=== PATIENT | male | born 1945 | race Caucasian/White ===

== ENCOUNTER 2017-07-18 13:00 | Outpatient (RCR) | payer MEDICARE, SELFPAY ==
[2017-07-18 14:44] LABS: International Normalized Ratio 1.8; Prothrombin Time (Protime)PT. 19.8 SECONDS (11.7-14.9)
== END 2017-07-18 13:30 | disposition home or self-care (01) ==
LOC: LAB 13:00
PROVIDERS: Family Provider Family Medicine Geriatric Medicine; PCP Family Medicine Geriatric Medicine; Visit Provider Internal Medicine Cardiovascular Disease
DX: I48.0 Paroxysmal atrial fibrillation (principal)
CPT/HCPCS: 36415; 85610

== ENCOUNTER 2017-07-28 10:22 | Day surgery (SDC) | payer MEDICARE, SELFPAY ==
[2017-07-28 10:51] VITALS: BP 110/75; PULSE 84; RESP 16; TEMP 36.3; O2SAT 97; BMI 32.0
--- NOTE | 2017-07-28 12:39 | PCM.OP.BLANK ---
Operative Report Date of Procedure: 07/28/17 Preoperative diagnosis: Left Carpal tunnel syndrome Postoperative diagnosis: Same Title of operation: Open Left carpal tunnel release Surgeon: Dr. Moises Walton Anesthesia: Local Indications for surgery: Patient seen and evaluated in the office. Diagnosed with carpal tunnel syndrome. They have failed adequate nonoperative treatment. Due to persistent symptoms they wish to proceed with carpal tunnel release surgery appropriate informed consent was obtained and signed. Details of procedure: Patient was taken to the OR and transferred to the OR table. Appropriate timeouts were performed. Well-padded tourniquet was applied to the operative upper extremity proximally. Area was prepped with alcohol. Local anesthetic was administered using 9 cc of 2% lidocaine plain. Operative extremity was prepped padded and draped in usual orthopedic sterile fashion for the procedure. Limb was exsanguinated. Tourniquet applied to 250 mmHg. Three centimeter incision was made over the palm. Carefully taken through skin, subcutaneous tissue, down onto the transverse carpal ligament. Transverse carpal ligament was opened at the midportion with a knife. Elevator was carefully placed underneath the transverse carpal ligament in a distal direction. I dissected down onto that with a knife. Elevator was then placed in a proximal direction, again directly underneath the transverse carpal ligament. I dissected down on that with a knife. Scissors were used at the proximal extent placed under direct visualization. This fully released the proximal extent of the transverse carpal ligament. At this point my small finger was placed proximally and distally to assure complete release of the transverse carpal ligament over the median nerve. FPL tendon was noted. No significant abnormalities were noted at the region of the carpal canal. Tourniquet was let down at 6 minutes. Bleeding controlled with the Bovie. Wound thoroughly irrigated. No undue bleeding noted. Skin edges were reapproximated with a 5-0 nylon. Sterile bandage was applied. Patient was awoken from the anesthetic. Transferred to the room bed. To recovery room in satisfactory condition. Patient will be discharged home. Ice and elevation recommended. Pain medication as needed. Follow-up in the office next week as scheduled. This note was generated with [employer] dictation software. It may contain incorrect words, spelling, and punctuation that were not noted in checking the note before signing.
[2017-07-28 12:50] VITALS: BP 131/64; PULSE 62; RESP 16; TEMP 36.9; O2SAT 97
== END 2017-07-28 13:00 | disposition home or self-care (01) ==
LOC: SDC 10:23 → ACINP 10:26 → AC 13:36
PROVIDERS: Family Provider Family Medicine Geriatric Medicine; PCP Family Medicine Geriatric Medicine; Visit Provider Orthopaedic Surgery
PROC: (CPT 64721; principal; 2017-07-28 11:45)
DX: G56.02 Carpal tunnel syndrome, left upper limb (principal); I10 Essential (primary) hypertension; I48.91 Unspecified atrial fibrillation; Z79.01 Long term (current) use of anticoagulants; E66.9 Obesity, unspecified; Z68.34 Body mass index [BMI] 34.0-34.9, adult; Z79.899 Other long term (current) drug therapy; Z87.891 Personal history of nicotine dependence; Z79.82 Long term (current) use of aspirin; I71.9 Aortic aneurysm of unspecified site, without rupture; Z85.46 Personal history of malignant neoplasm of prostate
CPT/HCPCS: 01810; 64721

== ENCOUNTER → 2017-09-15 09:48 | Outpatient (CLI) | payer MEDICARE, SELFPAY ==
--- NOTE | 2017-09-15 09:52 | RAD_ITS ---
STUDY: X-RAY - LEFT SHOULDER REASON FOR EXAM: Male, 71 years old. Pain TECHNIQUE: 4 view(s) of the shoulder. COMPARISON: None. FINDINGS: Normal glenohumeral articulation. Mild degenerative hypertrophy at the acromioclavicular joint. Inferior hooking of the acromion can predispose to impingement. Normal humeral head and visualized proximal humerus. Soft tissue calcification lateral to the humerus likely related to calcific tendinopathy. Normal visualized pulmonary apex. RAD/Shoulder min 2 Views IMPRESSION: Degenerative changes of the shoulder. Calcific tendinopathy. Electronically Signed: Forrest Mccall DO at 8:44 EDT Tel [phone], Service support ,
--- NOTE | 2017-09-15 09:52 | RAD_ITS ---
STUDY: X-RAY - RIGHT SHOULDER REASON FOR EXAM: Male, 71 years old. Pain TECHNIQUE: 4 view(s) of the shoulder. COMPARISON: None. FINDINGS: Normal glenohumeral articulation. Degenerative hypertrophy at the acromioclavicular joint. Inferior hooking of the acromion can predispose to impingement. Normal humeral head and visualized proximal humerus. The soft tissue structures are unremarkable. Normal visualized pulmonary apex. RAD/Shoulder min 2 Views IMPRESSION: Degenerative changes of the shoulder. Electronically Signed: Forrest Mccall DO at 9:00 EDT Tel [phone], Service support ,
--- NOTE | 2017-09-15 09:53 | RAD_ITS ---
STUDY: X-RAY - PELVIS AND BILATERAL HIPS REASON FOR EXAM: Male, 71 years old. Pain TECHNIQUE: Radiological exam, hip, bilateral, with pelvis when performed; 2 views COMPARISON: None. FINDINGS: There is a non-specific bowel gas pattern. Normal visualized soft tissue structures. Normal bilateral iliac wings, sacroiliac joints and visualized sacrum. Normal bilateral superior and inferior pubic rami. Normal pubic symphysis. Normal bilateral ischial tuberosities. Normal visualized right femoral head. Normal right acetabulum. Normal right hip joint. Normal visualized left femoral head. Normal left acetabulum. Normal left hip joint. RAD/Hips B/L min 2 views w/ Pelvis IMPRESSION: Normal x-ray examination of the pelvis and bilateral hips. Electronically Signed: Eliot Angulo DO at 9:43 EDT , Service support ,
[2017-09-15 13:33] LABS: Absolute Lymphocyte Count 1.02 X10^3/ul (0.83-4.51); Absolute Neutrophil Count 7.4 X10^3/uL (2.0-7.7); Basophil# 0.02 X10^3/uL; Basophil% 0.2 % (0-1); Eosinophil# 0.28 X10^3/uL; Hematocrit 42.8 % (40-54); Hemoglobin 13.6 g/dl (13.0-16.5); Lymphocyte # 1.02 X10^3/ul (4.0); Lymphocyte % 10.9 % (19-41); Mean Corp Hgb Conc 31.8 g/gl (32-36); Mean Corpuscular Volume 88.1 fL (80-94); Mean Platelet Vol. 10.8 fl (6.2-12.0); Monocyte% 6.4 % (0-10); Neutrophil # 7.38 X10^3/uL (2.7-7.7); Neutrophil % 79.2 % (47-70); Platelet Count 267 K/mm3 (150-450); RBC Distribution Width CV 12.7 % (11.6-14.6); RBC Distribution Width SD 40.9 fl (35.1-43.9); Red Blood Count 4.86 M/mm3 (4.6-6.2); White Blood Count 9.3 K/mm3 (4.4-11.0)
[2017-09-15 13:37] LABS: POSITIVE COUNT NO; POSITIVE DIFFERENTIAL NO; POSITIVE MORPHOLOGY NO
[2017-09-15 13:43] LABS: Erythrocyte Sedimentation Rate 18 mm/hr (0-20)
[2017-09-15 13:45] LABS: Anion Gap 4 (5-15); BUN 22 mg/dL (7-18); BUN/Creat Ratio 21.6 RATIO (10-20); Chloride 103 mmol/L (98-107); Creatinine, Serum 1.02 mg/dL (0.70-1.30); EST Glomerular Filtration Rate 76 mL/min (>60); Est Glom Filt Rate - Afr Amer 92 mL/min (>60); Glucose 127 mg/dL (74-106); Potassium 4.5 mmol/L (3.5-5.1); Sodium Level 138 mmol/L (136-145)
== END ==
PROVIDERS: Family Provider Family Medicine Geriatric Medicine; PCP Family Medicine Geriatric Medicine; Visit Provider Family Medicine Geriatric Medicine
DX: M19.012 Primary osteoarthritis, left shoulder (principal); M19.011 Primary osteoarthritis, right shoulder; M25.552 Pain in left hip; M25.551 Pain in right hip; M10.9 Gout, unspecified
CPT/HCPCS: 36415; 73030; 73521; 80048; 85025; 85652; 86140

== ENCOUNTER → 2017-10-19 14:54 | Outpatient (CLI) | payer MEDICARE, SELFPAY ==
[2017-10-19 16:35] LABS: Absolute Lymphocyte Count 0.91 X10^3/ul (0.83-4.51); Absolute Neutrophil Count 10.7 X10^3/uL (2.0-7.7); Basophil# 0.03 X10^3/uL; Basophil% 0.2 % (0-1); Eosinophil# 0.07 X10^3/uL; Eosinophils% 0.6 % (0-5); Hemoglobin 13.6 g/dl (13.0-16.5); Lymphocyte # 0.91 X10^3/ul (4.0); Lymphocyte % 7.3 % (19-41); Mean Corp Hgb Conc 32.4 g/gl (32-36); Mean Corpuscular Hgb 28.3 pg (27.0-32.0); Mean Corpuscular Volume 87.5 fL (80-94); Mean Platelet Vol. 10.7 fl (6.2-12.0); Monocyte# 0.75 X10^3/uL; Neutrophil # 10.65 X10^3/uL (2.7-7.7); Neutrophil % 85.3 % (47-70); Platelet Count 255 K/mm3 (150-450); RBC Distribution Width CV 13.9 % (11.6-14.6); RBC Distribution Width SD 44.2 fl (35.1-43.9); White Blood Count 12.5 K/mm3 (4.4-11.0)
[2017-10-19 16:58] LABS: POSITIVE COUNT NO; POSITIVE DIFFERENTIAL NO; POSITIVE MORPHOLOGY NO
[2017-10-19 17:13] LABS: ALB/GLOB Ratio 1.1 RATIO (0.9-2.4); AST(SGOT) 13 U/L (15-37); Alanine Aminotransfer ALT/SGPT 29 U/L (16-61); Albumin, Serum 3.6 g/dL (3.2-5.0); Alkaline Phosphatase 83 U/L (45-117); Anion Gap 7 (5-15); BUN 25 mg/dL (7-18); BUN/Creat Ratio 26.6 RATIO (10-20); Calcium,Total 8.8 mg/dL (8.5-10.1); Chloride 104 mmol/L (98-107); Creatinine, Serum 0.94 mg/dL (0.70-1.30); EST Glomerular Filtration Rate 84 mL/min (>60); Est Glom Filt Rate - Afr Amer 101 mL/min (>60); Globulin 3.2 g/dL (2.2-4.2); Glucose 99 mg/dL (74-106); Potassium 5.1 mmol/L (3.5-5.1); Protein, Total 6.8 g/dL (6.4-8.2); Sodium Level 140 mmol/L (136-145); Thyroid Stim Hormone (TSH) 0.28 uIU/mL (0.358-3.74)
== END ==
PROVIDERS: Family Provider Family Medicine Geriatric Medicine; PCP Family Medicine Geriatric Medicine; Visit Provider Family Medicine Geriatric Medicine
DX: E55.9 Vitamin D deficiency, unspecified (principal); I10 Essential (primary) hypertension
CPT/HCPCS: 36415; 80053; 82306; 84443; 85025

== ENCOUNTER → 2017-11-22 08:51 | Outpatient (CLI) | payer MEDICARE, SELFPAY ==
[2017-11-22 09:37] LABS: International Normalized Ratio 3.1; Prothrombin Time (Protime)PT. 32.1 SECONDS (11.7-14.9)
== END ==
PROVIDERS: Physician Assistant Medical; Family Provider Family Medicine Geriatric Medicine; PCP Family Medicine Geriatric Medicine; Visit Provider Internal Medicine Cardiovascular Disease
DX: I48.0 Paroxysmal atrial fibrillation (principal)
CPT/HCPCS: 36415; 85610

== ENCOUNTER → 2017-11-29 11:50 | Outpatient (CLI) | payer MEDICARE, SELFPAY ==
--- NOTE | 2017-11-29 11:50 | DT_ITS ---
This patient was seen during an EMR downtime November 27, 2017 - December 04, 2017. This patient may have a combination of paper and electronic documentation or all paper documentation. All documentation is viewable within the e-chart portion of [facility] for each patient visit.
[2017-12-04 12:19] LABS: Prothrombin Time (Protime)PT. 31.6 SECONDS (11.7-14.9)
== END ==
PROVIDERS: Family Provider Family Medicine Geriatric Medicine; PCP Family Medicine Geriatric Medicine; Visit Provider Physician Assistant Medical
DX: I48.91 Unspecified atrial fibrillation (principal); Z79.01 Long term (current) use of anticoagulants
CPT/HCPCS: 36415; 85610

== ENCOUNTER → 2017-12-19 11:00 | Day surgery (SDC) | payer MEDICARE, SELFPAY ==
[2017-12-18 13:21] VITALS: BMI 33.5
[2017-12-19 11:39] LABS: INR Fingerstick > 6.00
--- NOTE | 2017-12-19 12:25 | PCM.PN.BLA ---
Progress Note ADDENDUM Addendum entered and electronically signed by TEQUILA Padron 12/19/17 12:25: Patient is here today for a DCCV for his Atrial Fibrillation. He was last seen in the office on 11/13/2017. Patient's INR has been therapeutic for greater than 30 days. He still continues to complain of fatigue with exertional activities that he feels is related to his atrial fibrillation. I have re-examined the patient. There are no clinical changes since the date of exam. HPI Details: KAL ENCARNACION, is a 72 M who presents to the office today for a cardiovascular follow-up. 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 From a cardiac standpoint, patient is doing well. He does not have any chest discomfort/heaviness/tightness. His exercise tolerance is stable for his age. He does not have any worsening symptoms of shortness of breath. He denies any PND. He does not have any orthopnea. He does not have any symptoms of congestive heart failure. He does not have any palpitations that he is aware of. He does not have any lightheadedness or dizziness. He does not have any near-syncope or syncope. He does not have any lower extremity edema. He does not have any symptoms of claudication. He has not been to see the [facility] surgeon in the last year. Intake Vital Signs 11/13/17 Height 6 ft 5 in 11/13/17 Weight: 283 lb 11/13/17 Body Mass Index (BMI) 33.5 11/13/17 Blood Pressure 142/84 11/13/17 Blood Pressure Location Lt brachial 11/13/17 Blood Pressure Position Sitting 11/13/17 Respiratory Rate 16 11/13/17 Pulse Rate 90 11/13/17 Pulse Source Monitor Intake Visit Reasons: 6 M Kardex Clerk Required: No Accompanied by: none Is patient in pain?: No Allergies No Known Allergies Allergy (Verified 11/13/17 14:07) Medications Levothyroxine Sodium [Synthroid] 200 mcg PO DAILY 03/09/16 [History Confirmed 12/18/17] Pravastatin [Pravachol] 40 mg PO QHS 03/09/16 [History Confirmed 12/18/17] Tamsulosin HCl [Flomax] 0.8 mg PO DAILY 03/09/16 [History Confirmed 12/18/17] warfarin 4 mg tablet 4 mg PO .COMPLEX 07/18/17 [History Confirmed 12/18/17] warfarin 6 mg tablet 6 mg PO QDAY #90 tab 08/09/17 [Rx Confirmed 12/19/17] metoprolol tartrate 25 mg tablet 25 mg PO BID #180 tab 09/26/17 [Rx Confirmed 12/18/17] losartan 100 mg-hydrochlorothiazide 25 mg tablet 1 tab PO DAILY #90 tab 10/09/17 [Rx Confirmed 12/18/17] Ejection fraction %: 60 to 64 PFSH Medical History PAF (paroxysmal atrial fibrillation) (Chronic) Aortic valve disease (Resolved) Thoracic aortic aneurysm without rupture (Resolved) Aortic aneurysm (Chronic) Syncope and collapse (Acute) Surgical History H/O: knee surgery (Resolved) History of tonsillectomy (Resolved) Hx of vasectomy (Resolved) Family History Father Hypertension Heart disease Social History Smoking Status: Former smoker alcohol intake: current alcohol intake frequency: 0-2 drinks per day Alcohol type: wine substance use type: does not use caffeine: Yes Type: coffee Number of servings: 1 what type of physical activity do you participate in: none Cardiology Exam Const Appearance: cooperative, no acute distress and well developed Orientation: alert, awake and oriented x3 Head Head: normocephalic and atraumatic Mouth: moist mucous membranes Eyes General: appearance normal, both eyes and all related structures Conjunctivae: conjunctivae normal Pupils: PERRL EOM: EOM intact bilaterally Neck Neck: normal visual inspection, no lymphadenopathy and no JVD Carotids: Negative bruit Neck Mass: Negative Neck mass Chest Chest inspection: normal inspection of the chest and symmetric chest movement Auscultation: Bilateral: Clear to Auscultation Cardio Palpation: normal PMI Rate: regular rate Rhythm: regular rhythm Heart sounds: S1 normal and S2 normal; negative rub, gallop or murmur GI GI: normal to inspection, soft, no hepatosplenomegaly and bowel sounds present; negative tender Neuro General: alert, awake, oriented x3, CN's II-XI intact bilaterally and moves all extremities Extremities Pulses: Normal: Right Posterior Tibial Pulse, Left Posterior Tibial Pulse, Right Radial Pulse, Left Radial Pulse Lower Extremity Edema: None: Bilateral Psych Psychological: normal affect Supplemental Info a cardiovascular follow-up. 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 Echocardiogram done at [facility] in February 2016 post surgery demonstrated ejection fraction of 55%. Patient was noted to be in atrial fibrillation. Aortic valve repair with peak gradient of 8 mmHg, mean gradient of 4 mmHg and a valve index of 0.65. 1. Thoracic aortic aneurysm with aneurysm repair and aortic valve repair: Patient does continue to follow with CT surgery. Assessment & Plan 1. Thoracic aortic aneurysm without rupture I71.2 repair in 2015 at [facility] Plan - TEQUILA Padron Patient does continue to follow with vascular surgeon at [facility]. 2. Aortic valve disease I35.9 AVR 2015 Plan - TEQUILA Padron Patient does continue to follow with surgery at [facility]. We will continue to follow by history, exam and echocardiograms as deemed appropriate. Did discuss obtaining one in the office today however he declines. He would like to do this through the [facility]. 3. PAF (paroxysmal atrial fibrillation) I48.0 Plan - TEQUILA Padron Pt is overdue to have his INR checked. He was reminded of the importance of this. He is in atrial fibrillation today, he is unaware of this. Did discuss obtaining a Holter monitor to assess if this was persistent or paroxysmal. He would prefer not to do this. He would prefer to come in next week for an EKG. Agreeable with this. If he remains in atrial fibrillation at that time we will then decide plan of care. Orders Orders: Prothrombin Time w/INR 11/13/17 4. Essential hypertension I10 Plan - TEQUILA Padron Adequately controlled on current medications, will not make any adjustments. 5. Pure hypercholesterolemia E78.00; E78.0 Plan - TEQUILA Padron Managed by PCP, he will remain on current medications. Plan Detail Other Orders Orders: 12 Lead EKG performed by [facility] 11/13/17 I48.91, Z86.79, Z98.890 Additional Comments - TEQUILA Padron The above patient was discussed with Dr. Cosme, he agrees with plan of care. Thank you for allowing us to participate in patient's plan of care, if you have any questions please do not hesitate to call. This note was generated using a voice recognition system and there may be incorrect words, spelling or punctuation errors that were not noted when reviewing the office note prior to saving. Follow Up 1 Week (1-2 weeks for an EKG) 1 Year ([facility]) Coding Level of Care Code Off vis,est,level 3 Diagnoses Thoracic aortic aneurysm without rupture I71.2 Aortic valve disease I35.9 PAF (paroxysmal atrial fibrillation) I48.0 Essential hypertension I10 Hypertension type: essential hypertension Pure hypercholesterolemia E78.00; E78.0 Hyperlipidemia type: pure hypercholesterolemia
--- NOTE | 2017-12-19 12:28 | PN_ITS ---
Progress Note ADDENDUM Addendum entered and electronically signed by TEQUILA Padron 12:25: Patient is here today for a DCCV for his Atrial Fibrillation. He was last seen in the office on 11/13/2017. Patient's INR has been therapeutic for greater than 30 days. He still continues to complain of fatigue with exertional activities that he feels is related to his atrial fibrillation. I have re-examined the patient. There are no clinical changes since the date of exam. HPI Details: KAL ENCARNACION, is a 72 M who presents to the office today for a cardiovascular follow-up. 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 From a cardiac standpoint, patient is doing well. He does not have any chest discomfort/heaviness/tightness. His exercise tolerance is stable for his age. He does not have any worsening symptoms of shortness of breath. He denies any PND. He does not have any orthopnea. He does not have any symptoms of congestive heart failure. He does not have any palpitations that he is aware of. He does not have any lightheadedness or dizziness. He does not have any near-syncope or syncope. He does not have any lower extremity edema. He does not have any symptoms of claudication. He has not been to see the [facility] surgeon in the last year. Intake Vital Signs 11/13/17 Height 6 ft 5 in 11/13/17 Weight: 283 lb 11/13/17 Body Mass Index (BMI) 33.5 11/13/17 Blood Pressure 142/84 11/13/17 Blood Pressure Location Lt brachial 11/13/17 Blood Pressure Position Sitting 11/13/17 Respiratory Rate 16 11/13/17 Pulse Rate 90 11/13/17 Pulse Source Monitor Intake Visit Reasons: 6 M Feeder/Folder Required: No Accompanied by: none Is patient in pain?: No Allergies No Known Allergies Allergy (Verified 11/13/17 14:07) Medications Levothyroxine Sodium [Synthroid] 200 mcg PO DAILY 03/09/16 [History Confirmed ] Pravastatin [Pravachol] 40 mg PO QHS 03/09/16 [History Confirmed 12/18/17] Tamsulosin HCl [Flomax] 0.8 mg PO DAILY 03/09/16 [History Confirmed 12/18/17] warfarin 4 mg tablet 4 mg PO .COMPLEX 07/18/17 [History Confirmed 12/18/17] warfarin 6 mg tablet 6 mg PO QDAY #90 tab 08/09/17 [Rx Confirmed 12/19/17] metoprolol tartrate 25 mg tablet 25 mg PO BID #180 tab 09/26/17 [Rx Confirmed ] losartan 100 mg-hydrochlorothiazide 25 mg tablet 1 tab PO DAILY #90 tab [Rx Confirmed 12/18/17] Ejection fraction %: 60 to 64 PFSH Medical History PAF (paroxysmal atrial fibrillation) (Chronic) Aortic valve disease (Resolved) Thoracic aortic aneurysm without rupture (Resolved) Aortic aneurysm (Chronic) Syncope and collapse (Acute) Surgical History H/O: knee surgery (Resolved) History of tonsillectomy (Resolved) Hx of vasectomy (Resolved) Family History Father Hypertension Heart disease Social History Smoking Status: Former smoker alcohol intake: current alcohol intake frequency: 0-2 drinks per day Alcohol type: wine substance use type: does not use caffeine: Yes Type: coffee Number of servings: 1 what type of physical activity do you participate in: none Cardiology Exam Const Appearance: cooperative, no acute distress and well developed Orientation: alert, awake and oriented x3 Head Head: normocephalic and atraumatic Mouth: moist mucous membranes Eyes General: appearance normal, both eyes and all related structures Conjunctivae: conjunctivae normal Pupils: PERRL EOM: EOM intact bilaterally Neck Neck: normal visual inspection, no lymphadenopathy and no JVD Carotids: Negative bruit Neck Mass: Negative Neck mass Chest Chest inspection: normal inspection of the chest and symmetric chest movement Auscultation: Bilateral: Clear to Auscultation Cardio Palpation: normal PMI Rate: regular rate Rhythm: regular rhythm Heart sounds: S1 normal and S2 normal; negative rub, gallop or murmur GI GI: normal to inspection, soft, no hepatosplenomegaly and bowel sounds present; negative tender Neuro General: alert, awake, oriented x3, CN's II-XI intact bilaterally and moves all extremities Extremities Pulses: Normal: Right Posterior Tibial Pulse, Left Posterior Tibial Pulse, Right Radial Pulse, Left Radial Pulse Lower Extremity Edema: None: Bilateral Psych Psychological: normal affect Supplemental Info a cardiovascular follow-up. 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 Echocardiogram done at [facility] in February 2016 post surgery demonstrated ejection fraction of 55%. Patient was noted to be in atrial fibrillation. Aortic valve repair with peak gradient of 8 mmHg, mean gradient of 4 mmHg and a valve index of 0.65. 1. Thoracic aortic aneurysm with aneurysm repair and aortic valve repair: Patient does continue to follow with CT surgery. Assessment & Plan 1. Thoracic aortic aneurysm without rupture I71.2 repair in 2015 at [facility] Plan - TEQUILA Padron Patient does continue to follow with vascular surgeon at [facility]. 2. Aortic valve disease I35.9 AVR 2015 Plan - TEQUILA Padron Patient does continue to follow with surgery at [facility]. We will continue to follow by history, exam and echocardiograms as deemed appropriate. Did discuss obtaining one in the office today however he declines. He would like to do this through the [facility]. 3. PAF (paroxysmal atrial fibrillation) I48.0 Plan - TEQUILA Padron Pt is overdue to have his INR checked. He was reminded of the importance of this. He is in atrial fibrillation today, he is unaware of this. Did discuss obtaining a Holter monitor to assess if this was persistent or paroxysmal. He would prefer not to do this. He would prefer to come in next week for an EKG. Agreeable with this. If he remains in atrial fibrillation at that time we will then decide plan of care. Orders Orders: Prothrombin Time w/INR 11/13/17 4. Essential hypertension I10 Plan - TEQUILA Padron Adequately controlled on current medications, will not make any adjustments. 5. Pure hypercholesterolemia E78.00; E78.0 Plan - TEQUILA Padron Managed by PCP, he will remain on current medications. Plan Detail Other Orders Orders: 12 Lead EKG performed by [facility] 11/13/17 I48.91, Z86.79, Z98.890 Additional Comments - TEQUILA Padron The above patient was discussed with Dr. Cosme, he agrees with plan of care. Thank you for allowing us to participate in patient's plan of care, if you have any questions please do not hesitate to call. This note was generated using a voice recognition system and there may be incorrect words, spelling or punctuation errors that were not noted when reviewing the office note prior to saving. Follow Up 1 Week (1-2 weeks for an EKG) 1 Year ([facility]) Coding Level of Care Code Off vis,est,level 3 Diagnoses Thoracic aortic aneurysm without rupture I71.2 Aortic valve disease I35.9 PAF (paroxysmal atrial fibrillation) I48.0 Essential hypertension I10 Hypertension type: essential hypertension Pure hypercholesterolemia E78.00; E78.0 Hyperlipidemia type: pure hypercholesterolemia
--- NOTE | 2017-12-19 13:22 | PCM.HP.BLA ---
Problem List (1) PAF (paroxysmal atrial fibrillation) Status: Chronic (2) Thoracic aortic aneurysm without rupture Status: Resolved Comment: repair in 2016 at [facility] (3) H/O aortic valve repair Status: Chronic Comment: Aortic vavle repair & aortic root replacement @ [facility] 02/23/16; History and Physical Date of Admission: 12/19/17 Date: 12/19/2017 History of present illness: Pre-synchronized DC cardioversion: Update/addendum For history of present illness, past medical history, family history, social history, review of systems, initial impression and plan please see the previously dictated outpatient history of present illness from 11/13/2017. The patient has been diagnosed with atrial fibrillation superimposed upon his history of thoracic aortic aneurysm repair and aortic valve repair. He has been on medical therapy with rate limiting therapy and anti-coagulant therapy. He is referred for further evaluation and care with synchronized biphasic DC cardioversion. The procedure and risks were discussed with the patient. He was agreeable to this approach. This procedure is scheduled to be performed at [facility] on 12/19/2017. This note was generated with [employer] software. It may contain incorrect words, spelling, and punctuation that were not noted in checking the note before signing.
--- NOTE | 2017-12-19 13:26 | HP.PCM_ITS ---
Problem List (1) PAF (paroxysmal atrial fibrillation) Status: Chronic (2) Thoracic aortic aneurysm without rupture Status: Resolved Comment: repair in 2016 at [facility] (3) H/O aortic valve repair Status: Chronic Comment: Aortic vavle repair & aortic root replacement @ [facility] ; History and Physical Date of Admission: 12/19/17 Date: 12/19/2017 History of present illness: Pre-synchronized DC cardioversion: Update/addendum For history of present illness, past medical history, family history, social history, review of systems, initial impression and plan please see the previously dictated outpatient history of present illness from 11/13/2017. The patient has been diagnosed with atrial fibrillation superimposed upon his history of thoracic aortic aneurysm repair and aortic valve repair. He has been on medical therapy with rate limiting therapy and anti-coagulant therapy. He is referred for further evaluation and care with synchronized biphasic DC cardioversion. The procedure and risks were discussed with the patient. He was agreeable to this approach. This procedure is scheduled to be performed at [facility] on . This note was generated with [employer] software. It may contain incorrect words, spelling, and punctuation that were not noted in checking the note before signing.
--- NOTE | 2017-12-19 15:02 | PCM.OP.BLANK ---
Problem List (1) PAF (paroxysmal atrial fibrillation) Status: Chronic (2) Thoracic aortic aneurysm without rupture Status: Resolved Comment: repair in 2016 at [facility] (3) H/O aortic valve repair Status: Chronic Comment: Aortic vavle repair & aortic root replacement @ [facility] 02/23/16; Operative Report Date of Procedure: 12/19/17 Procedure: Synchronized biphasic DC cardioversion Indications: Atrial fibrillation Consent: Per the patient Premedications: Per Dr. Dino Luna with propofol 100 mg IV push total Procedure: Synchronized biphasic DC cardioversion: 200 J ?1: Result: Atrial fibrillation Synchronized biphasic DC cardioversion: 300 J ?1: Result: Sinus rhythm with premature ectopic complexes Complications: No apparent complications This note was generated with [employer] dictation software. It may contain incorrect words, spelling, and punctuation that were not noted in checking the note before signing.
--- NOTE | 2017-12-19 15:05 | OP.PCM_ITS ---
Problem List (1) PAF (paroxysmal atrial fibrillation) Status: Chronic (2) Thoracic aortic aneurysm without rupture Status: Resolved Comment: repair in 2016 at [facility] (3) H/O aortic valve repair Status: Chronic Comment: Aortic vavle repair & aortic root replacement @ [facility] ; Operative Report Date of Procedure: 12/19/17 Procedure: Synchronized biphasic DC cardioversion Indications: Atrial fibrillation Consent: Per the patient Premedications: Per Dr. Dino Luna with propofol 100 mg IV push total Procedure: Synchronized biphasic DC cardioversion: 200 J ?1: Result: Atrial fibrillation Synchronized biphasic DC cardioversion: 300 J ?1: Result: Sinus rhythm with premature ectopic complexes Complications: No apparent complications This note was generated with [email or web address] dictation software. It may contain incorrect words, spelling, and punctuation that were not noted in checking the note before signing.
--- NOTE | 2017-12-19 16:35 | PCM.OP.BLANK ---
Problem List (1) Aortic aneurysm Status: Chronic (2) Atherosclerotic heart disease of [place] coronary artery without angina pectoris Status: Chronic (3) Atrial fibrillation Status: Chronic Comment: ablation in 1997, multiple cardioversions (4) Encounter for long-term current use of high risk medication Status: Chronic (5) H/O aortic valve repair Status: Chronic Comment: Aortic vavle repair & aortic root replacement @ 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 The patient reports no PO intake since midnight. The patient does not have a history of obstructive sleep apnea. The patient reports a history of smoking, but denies COPD. The patient denies any recent constitutional symptoms such as fevers, chills, nausea or vomiting. The patient denies previous anesthetic complications. Patient reports being compliant with anticoagulation therapy, but did take 2 doses of Coumadin yesterday. INR today was 6.1. PHYSICAL EXAMINATION: VITAL SIGNS: Reviewed and were acceptable. GENERAL: The patient is an obese male, in no apparent distress, speaking in full sentences. HEENT: Normocephalic, atraumatic. Mucous membranes are moist and pink. Good mouth opening noted. Trachea is midline. Good neck mobility. MP IV CHEST: S1, S2 irregularly irregular. No murmurs, rubs or gallops were noted. LUNGS: Clear to auscultation bilaterally without appreciable wheezes, rales or rhonchi. ABDOMEN: Soft, nontender, nondistended. Positive bowel sounds. EXTREMITIES: There is no clubbing, cyanosis or edema. ASA Class: II DESCRIPTION OF PROCEDURE: After confirmation of informed consent, the patient's anesthesia plan was reviewed in detail. Propofol was chosen. Risks and benefits were reviewed and the patient agreed to proceed. At 1:28 PM, the patient was given 40 mg of propofol. The patient required a total of 100 mg of propofol throughout the procedure to achieve appropriate sedation. The patient achieved an appropriate level of sedation and received 2 attempt s synchronized cardioversion, at 200 J and [address] Cosme at the bedside. This was successful in achieving normal sinus rhythm. The patient was monitored until 1:40 PM, at which time the patient reached their baseline mental status and function. The patient tolerated the procedure well. COMPLICATIONS: None ESTIMATED BLOOD LOSS: None RECOMMENDATIONS: Okay to recover in usual fashion. Code Visit [id number]: Other Procedure See Report - 12 minutes of conscious sedation - [id number]
--- NOTE | 2017-12-19 16:38 | OP.PCM_ITS ---
Problem List (1) Aortic aneurysm Status: Chronic (2) Atherosclerotic heart disease of [place] coronary artery without angina pectoris Status: Chronic (3) Atrial fibrillation Status: Chronic Comment: ablation in 1997, multiple cardioversions (4) Encounter for long-term current use of high risk medication Status: Chronic (5) H/O aortic valve repair Status: Chronic Comment: Aortic vavle repair & aortic root replacement @ [facility] ; (6) Hyperlipidemia Status: Chronic Qualifiers: Hyperlipidemia type: pure hypercholesterolemia Qualified Code(s): E78.00 - Pure hypercholesterolemia, unspecified; E78.0 - Pure hypercholesterolemia (7) Hypertension Status: Chronic Qualifiers: Hypertension type: essential hypertension Qualified Code(s): I10 - Essential (primary) hypertension (8) Hypothyroidism Status: Chronic (9) [place] current use of anticoagulant Status: Chronic (10) History of tonsillectomy Status: Resolved (11) Hx of vasectomy Status: Resolved Operative Report Date of Procedure: 12/19/17 - Conscious sedation CONSCIOUS SEDATION REPORT BRIEF HISTORY OF PRESENT ILLNESS: The patient is a 72-year-old male who presented to [facility] for an elective outpatient cardioversion due to underlying atrial fibrillation. The patient reports no PO intake since midnight. The patient does not have a history of obstructive sleep apnea. The patient reports a history of smoking, but denies COPD. The patient denies any recent constitutional symptoms such as fevers, chills, nausea or vomiting. The patient denies previous anesthetic complications. Patient reports being compliant with anticoagulation therapy, but did take 2 doses of Coumadin yesterday. INR today was 6.1. PHYSICAL EXAMINATION: VITAL SIGNS: Reviewed and were acceptable. GENERAL: The patient is an obese male, in no apparent distress, speaking in full sentences. HEENT: Normocephalic, atraumatic. Mucous membranes are moist and pink. Good mouth opening noted. Trachea is midline. Good neck mobility. MP IV CHEST: S1, S2 irregularly irregular. No murmurs, rubs or gallops were noted. LUNGS: Clear to auscultation bilaterally without appreciable wheezes, rales or rhonchi. ABDOMEN: Soft, nontender, nondistended. Positive bowel sounds. EXTREMITIES: There is no clubbing, cyanosis or edema. ASA Class: II DESCRIPTION OF PROCEDURE: After confirmation of informed consent, the patient's anesthesia plan was reviewed in detail. Propofol was chosen. Risks and benefits were reviewed and the patient agreed to proceed. At 1:28 PM, the patient was given 40 mg of propofol. The patient required a total of 100 mg of propofol throughout the procedure to achieve appropriate sedation. The patient achieved an appropriate level of sedation and received 2 attempt s synchronized cardioversion, at 200 J and [address] Cosme at the bedside. This was successful in achieving normal sinus rhythm. The patient was monitored until 1:40 PM, at which time the patient reached their baseline mental status and function. The patient tolerated the procedure well. COMPLICATIONS: None ESTIMATED BLOOD LOSS: None RECOMMENDATIONS: Okay to recover in usual fashion. Code Visit 9xxxx: Other Procedure See Report - 12 minutes of conscious sedation - [id number]
== END ==
PROVIDERS: Family Provider Family Medicine Geriatric Medicine; PCP Family Medicine Geriatric Medicine; Visit Provider Internal Medicine Cardiovascular Disease
DX: I48.2 Chronic atrial fibrillation (principal); I71.2 Thoracic aortic aneurysm, without rupture; I35.9 Nonrheumatic aortic valve disorder, unspecified; I25.10 Atherosclerotic heart disease of native coronary artery without angina pectoris; I10 Essential (primary) hypertension; E78.00 Pure hypercholesterolemia, unspecified; E03.9 Hypothyroidism, unspecified; Z95.2 Presence of prosthetic heart valve; Z79.01 Long term (current) use of anticoagulants; Z79.899 Other long term (current) drug therapy; Z87.891 Personal history of nicotine dependence
CPT/HCPCS: 36416; 92960; 93005; J7040

== ENCOUNTER 2017-12-21 13:05 | Outpatient (RCR) | payer MEDICARE, SELFPAY ==
[2017-12-08 11:19] LABS: Prothrombin Time (Protime)PT. 36.9 SECONDS (11.7-14.9)
[2017-12-08 11:24] LABS: Anion Gap 10 (5-15); BUN 17 mg/dL (7-18); BUN/Creat Ratio 16.5 RATIO (10-20); Calcium,Total 8.8 mg/dL (8.5-10.1); Chloride 101 mmol/L (98-107); Creatinine, Serum 1.03 mg/dL (0.70-1.30); EST Glomerular Filtration Rate 75 mL/min (>60); Est Glom Filt Rate - Afr Amer 91 mL/min (>60); Glucose 148 mg/dL (74-106); Sodium Level 140 mmol/L (136-145)
[2017-12-08 11:35] LABS: International Normalized Ratio 3.7
[2017-12-13 14:07] LABS: Prothrombin Time (Protime)PT. 35.9 SECONDS (11.7-14.9)
[2017-12-13 14:16] LABS: International Normalized Ratio 3.6
[2017-12-21 13:28] LABS: International Normalized Ratio 3.2; Prothrombin Time (Protime)PT. 32.7 SECONDS (11.7-14.9)
== END 2017-12-21 14:00 | disposition home or self-care (01) ==
LOC: LAB 13:05
PROVIDERS: Family Provider Family Medicine Geriatric Medicine; PCP Family Medicine Geriatric Medicine; Visit Provider Internal Medicine Cardiovascular Disease
DX: I48.0 Paroxysmal atrial fibrillation (principal)
CPT/HCPCS: 36415; 80048; 85610

== ENCOUNTER 2018-01-22 12:14 | Outpatient (RCR) | payer MEDICARE, SELFPAY ==
[2017-12-25 17:09] LABS: International Normalized Ratio 3.3; Prothrombin Time (Protime)PT. 33.5 SECONDS (11.7-14.9)
[2018-01-01 15:46] LABS: International Normalized Ratio 1.8; Prothrombin Time (Protime)PT. 21.1 SECONDS (11.7-14.9)
[2018-01-15 13:45] LABS: Prothrombin Time (Protime)PT. 31.3 SECONDS (11.7-14.9)
[2018-01-22 14:17] LABS: Prothrombin Time (Protime)PT. 35.2 SECONDS (11.7-14.9)
[2018-01-22 14:18] LABS: International Normalized Ratio 3.5
== END 2018-01-22 14:00 | disposition home or self-care (01) ==
LOC: LAB 12:14
PROVIDERS: Family Provider Family Medicine Geriatric Medicine; PCP Family Medicine Geriatric Medicine; Visit Provider Internal Medicine Cardiovascular Disease
DX: I48.0 Paroxysmal atrial fibrillation (principal); Z79.01 Long term (current) use of anticoagulants
CPT/HCPCS: 36415; 85610

== ENCOUNTER 2018-02-21 11:03 | Outpatient (RCR) | payer MEDICARE, SELFPAY ==
[2018-02-05 13:26] LABS: International Normalized Ratio 3.4; Prothrombin Time (Protime)PT. 34.8 SECONDS (11.7-14.9)
[2018-02-21 11:37] LABS: Prothrombin Time (Protime)PT. 38.9 SECONDS (11.7-14.9)
== END 2018-02-21 12:00 | disposition home or self-care (01) ==
LOC: LAB 11:03
PROVIDERS: Family Provider Family Medicine Geriatric Medicine; PCP Family Medicine Geriatric Medicine; Visit Provider Internal Medicine Cardiovascular Disease
DX: I48.0 Paroxysmal atrial fibrillation (principal); Z79.01 Long term (current) use of anticoagulants
CPT/HCPCS: 36415; 85610

== ENCOUNTER → 2018-03-06 11:35 | Outpatient (CLI) | payer MEDICARE, SELFPAY ==
[2018-03-06 12:22] LABS: Absolute Lymphocyte Count 1.42 X10^3/ul (0.83-4.51); Absolute Neutrophil Count 14.4 X10^3/uL (2.0-7.7); Basophil# 0.02 X10^3/uL; Basophil% 0.1 % (0-1); Eosinophil# 0.07 X10^3/uL; Eosinophils% 0.4 % (0-5); Hematocrit 43.7 % (40-54); Hemoglobin 14.3 g/dl (13.0-16.5); Lymphocyte # 1.42 X10^3/ul (4.0); Lymphocyte % 8.8 % (19-41); Mean Corp Hgb Conc 32.7 g/gl (32-36); Mean Corpuscular Hgb 29.5 pg (27.0-32.0); Mean Corpuscular Volume 90.3 fL (80-94); Mean Platelet Vol. 11.2 fl (6.2-12.0); Neutrophil # 14.44 X10^3/uL (2.7-7.7); Neutrophil % 90.1 % (47-70); Platelet Count 257 K/mm3 (150-450); RBC Distribution Width CV 13.7 % (11.6-14.6); RBC Distribution Width SD 45.3 fl (35.1-43.9); Red Blood Count 4.84 M/mm3 (4.6-6.2); White Blood Count 16.1 K/mm3 (4.4-11.0)
[2018-03-06 12:25] LABS: POSITIVE COUNT NO; POSITIVE DIFFERENTIAL NO; POSITIVE MORPHOLOGY NO
[2018-03-06 12:32] LABS: Anion Gap 8 (5-15); BUN 62 mg/dL (7-18); BUN/Creat Ratio 31.5 RATIO (10-20); Calcium,Total 9.2 mg/dL (8.5-10.1); Chloride 99 mmol/L (98-107); Creatinine, Serum 1.97 mg/dL (0.70-1.30); EST Glomerular Filtration Rate 36 mL/min (>60); Est Glom Filt Rate - Afr Amer 43 mL/min (>60); Glucose 197 mg/dL (74-106); Potassium 4.3 mmol/L (3.5-5.1); Sodium Level 136 mmol/L (136-145)
== END ==
PROVIDERS: Family Provider Family Medicine Geriatric Medicine; PCP Family Medicine Geriatric Medicine; Visit Provider Family Medicine Geriatric Medicine
DX: R53.83 Other fatigue (principal); R50.9 Fever, unspecified
CPT/HCPCS: 36415; 80048; 85025; 87633

== ENCOUNTER 2018-03-19 10:54 | Outpatient (RCR) | payer MEDICARE, SELFPAY ==
[2018-03-01 13:39] LABS: Prothrombin Time (Protime)PT. 22.3 SECONDS (11.7-14.9)
[2018-03-12 13:18] LABS: International Normalized Ratio 1.8; Prothrombin Time (Protime)PT. 20.8 SECONDS (11.7-14.9)
[2018-03-19 11:16] LABS: Prothrombin Time (Protime)PT. 31.7 SECONDS (11.7-14.9)
== END 2018-03-19 12:00 | disposition home or self-care (01) ==
LOC: LAB 10:54
PROVIDERS: Family Provider Family Medicine Geriatric Medicine; PCP Family Medicine Geriatric Medicine; Visit Provider Internal Medicine Cardiovascular Disease
DX: I48.0 Paroxysmal atrial fibrillation (principal); Z79.01 Long term (current) use of anticoagulants; R82.99 Other abnormal findings in urine; R35.1 Nocturia
CPT/HCPCS: 36415; 85610; 87086; 87088

== ENCOUNTER → 2018-04-26 14:37 | Outpatient (CLI) | payer MEDICARE, SELFPAY ==
[2018-04-26 16:42] LABS: Absolute Lymphocyte Count 1.05 X10^3/ul (0.83-4.51); Absolute Neutrophil Count 10.7 X10^3/uL (2.0-7.7); Basophil# 0.02 X10^3/uL; Basophil% 0.2 % (0-1); Eosinophil# 0.05 X10^3/uL; Eosinophils% 0.4 % (0-5); Hematocrit 41.8 % (40-54); Hemoglobin 14.1 g/dl (13.0-16.5); Lymphocyte # 1.05 X10^3/ul (4.0); Lymphocyte % 8.2 % (19-41); Mean Corp Hgb Conc 33.7 g/gl (32-36); Mean Corpuscular Hgb 30.7 pg (27.0-32.0); Mean Corpuscular Volume 90.9 fL (80-94); Mean Platelet Vol. 11.1 fl (6.2-12.0); Monocyte# 0.74 X10^3/uL; Monocyte% 5.8 % (0-10); Neutrophil # 10.71 X10^3/uL (2.7-7.7); Neutrophil % 83.8 % (47-70); Platelet Count 245 K/mm3 (150-450); RBC Distribution Width CV 14.6 % (11.6-14.6); RBC Distribution Width SD 47.8 fl (35.1-43.9); White Blood Count 12.8 K/mm3 (4.4-11.0)
[2018-04-26 16:47] LABS: POSITIVE COUNT NO; POSITIVE DIFFERENTIAL NO; POSITIVE MORPHOLOGY NO
[2018-04-26 17:04] LABS: AST(SGOT) 8 U/L (15-37); Alanine Aminotransfer ALT/SGPT 31 U/L (16-61); Albumin, Serum 3.4 g/dL (3.2-5.0); Alkaline Phosphatase 84 U/L (45-117); Anion Gap 9 (5-15); BUN 25 mg/dL (7-18); BUN/Creat Ratio 20.2 RATIO (10-20); Calcium,Total 8.5 mg/dL (8.5-10.1); Chloride 102 mmol/L (98-107); Creatinine, Serum 1.24 mg/dL (0.70-1.30); EST Glomerular Filtration Rate 61 mL/min (>60); Est Glom Filt Rate - Afr Amer 73 mL/min (>60); Globulin 3.3 g/dL (2.2-4.2); Glucose 337 mg/dL (74-106); Potassium 4.6 mmol/L (3.5-5.1); Protein, Total 6.7 g/dL (6.4-8.2); Sodium Level 137 mmol/L (136-145); Thyroid Stim Hormone (TSH) 0.13 uIU/mL (0.358-3.74)
[2018-04-26 17:09] LABS: Vitamin D,25 Hydroxy 16.1 ng/mL (29.95-100.01)
[2018-04-28 07:54] LABS: Hemoglobin A1c 9.7 % (4.2-6.3)
== END ==
PROVIDERS: Family Provider Family Medicine Geriatric Medicine; PCP Family Medicine Geriatric Medicine; Visit Provider Family Medicine Geriatric Medicine
DX: E55.9 Vitamin D deficiency, unspecified (principal); F52.8 Other sexual dysfunction not due to a substance or known physiological condition; I10 Essential (primary) hypertension
CPT/HCPCS: 36415; 80053; 82306; 83036; 84403; 84443; 85025

== ENCOUNTER 2018-05-31 12:50 | Outpatient (RCR) | payer MEDICARE, SELFPAY ==
[2018-05-16 14:32] VITALS: BMI 32.0
[2018-05-31 13:55] LABS: International Normalized Ratio 1.7; Prothrombin Time (Protime)PT. 20.2 SECONDS (11.7-14.9)
== END 2018-05-31 13:00 | disposition home or self-care (01) ==
LOC: LAB 12:50
PROVIDERS: Family Provider Family Medicine Geriatric Medicine; PCP Family Medicine Geriatric Medicine; Referring Provider Internal Medicine Cardiovascular Disease; Visit Provider Internal Medicine Cardiovascular Disease
DX: I48.0 Paroxysmal atrial fibrillation (principal); Z79.01 Long term (current) use of anticoagulants
CPT/HCPCS: 36415; 85610

== ENCOUNTER → 2018-06-05 15:18 | Outpatient (CLI) | payer MEDICARE, SELFPAY ==
[2018-05-16 14:32] VITALS: BMI 32.0
[2018-06-05 17:07] LABS: Thyroid Stim Hormone (TSH) 1.75 uIU/mL (0.358-3.74)
--- OUTSIDE RECORDS SUMMARY | 2018-07-22 22:46 | XMS RPT_ITS ---
:1945 Author Organization OHIP Support Name Relationship Address Phone JAGDISH ERAZO Unavailable [address] + [place] [address] R Unavailable Unavailable Unavailable LOVER, JAGDISH Unavailable [address] + [place] [address] R Unavailable Unavailable Unavailable LOVER, JAGDISH Unavailable [address] + [place] [address] R Unavailable Unavailable Unavailable LOVER, JAGDISH Unavailable [address] + [place] [address] R Unavailable Unavailable Unavailable LOVER, JAGDISH Unavailable [address] + [place] [address] R Unavailable Unavailable Unavailable LOVER, JAGDISH Unavailable [address] + [place] [address] R Unavailable Unavailable Unavailable LOVER, JAGDISH Unavailable [address] + [place] [address] R Unavailable Unavailable Unavailable LOVER, JAGDISH Unavailable [address] + [place] [address] R Unavailable Unavailable Unavailable LOVER, JAGDISH Unavailable [address] + [place] [address] R Unavailable Unavailable Unavailable LOVER, JAGDISH Unavailable [address] + [place] [address] R Unavailable Unavailable Unavailable LOVER, JAGDISH Unavailable [address] + [place] [address] R Unavailable Unavailable Unavailable LOVER, JAGDISH Unavailable [address] + [place] [address] R Unavailable Unavailable Unavailable LOVER, JAGDISH Unavailable [address] + [place] [address] R Unavailable Unavailable Unavailable LOVER, JAGDISH Unavailable [address] + [place] [address] R Unavailable Unavailable Unavailable LOVER, JAGDISH Unavailable [address] + [place] [address] R Unavailable Unavailable Unavailable LOVER, JAGDISH Unavailable [address] + [place] [address] R Unavailable Unavailable Unavailable LOVER, JAGDISH Unavailable Unavailable [phone] [place] [address] R Unavailable Unavailable Unavailable LOVER, JAGDISH Unavailable [address] + [place] [address] R Unavailable Unavailable Unavailable LOVER, JAGDISH Unavailable [address] + [place] [address] R Unavailable Unavailable Unavailable LOVER, JAGDISH Unavailable . + [place] [address] R Unavailable Unavailable Unavailable LOVER, JAGDISH Unavailable . + [place] [address] R Unavailable Unavailable Unavailable LOVER, JAGDISH Unavailable Unavailable [phone] [place] [address] R Unavailable Unavailable Unavailable LOVER, JAGDISH Unavailable Unavailable [phone] [place] [address] R Unavailable Unavailable Unavailable LOVER, JAGDISH Unavailable Unavailable [phone] [place] [address] R Unavailable Unavailable Unavailable LOVER, JAGDISH Unavailable Unavailable [phone] [place] [address] R Unavailable Unavailable Unavailable LOVER, JAGDISH Unavailable [address] [phone] [place] [address] R Unavailable Unavailable Unavailable LOVER, JAGDISH Unavailable [address] [phone] [place] [address] R Unavailable Unavailable Unavailable Care Team Providers Name Role Phone Meme Yates Attending Unavailable Oxana Vazquez Attending Unavailable Praneeth, Geri Chi Referring Unavailable Praneeth, Geri Chi Primary Care Unavailable Marky Travis Attending Unavailable Praneeth, Geri Chi Referring Unavailable Praneeth, Geri Chi Primary Care Unavailable Moodispaw, Marky Attending Unavailable MoodisMarky galloway Referring Unavailable Praneeth, Geri Chi Primary Care Unavailable , Yohannes Attending Unavailable Praneeth, Geri Chi Referring Unavailable MoodMarky brooke Attending Unavailable MoodisMarky galloway Referring Unavailable Praneeth, Geri Chi Primary Care Unavailable Marky Travis Attending Unavailable Marky Travis Referring Unavailable Praneeth, Geri Chi Primary Care Unavailable Marky Travis Attending Unavailable MoodisMarky galloway Referring Unavailable Praneeth, Geri Chi Primary Care Unavailable Praneeth, Geri Chi Attending Unavailable Praneeth, Geri Chi Primary Care Unavailable Marky Travis Attending Unavailable Praneeth, Geri Chi Referring Unavailable Praneeth, Geri Chi Primary Care Unavailable Oxana Thompson Attending Unavailable Praneeth, Geri Chi Attending Unavailable Praneeth, Geri Chi Primary Care Unavailable Praneeth, Geri Chi Referring Unavailable Koffi Hernandez Attending Unavailable Marky Travis Referring Unavailable Dino Luna Attending Unavailable MoodisMarky galloway Referring Unavailable Oxana Vazquez Attending Unavailable MoodMarky brooke Referring Unavailable Praneeth, Geri Chi Primary Care Unavailable Marky Travis Consulting Unavailable Marky Travis Attending Unavailable Marky Travis Referring Unavailable Praneeth, Geri Chi Primary Care Unavailable Oxana Vazquez Attending Unavailable Oxana Vazquez Referring Unavailable Praneeth, Geri Chi Primary Care Unavailable MoodMarky brooke Attending Unavailable Marky Travis Referring Unavailable Praneeth, Geri Chi Primary Care Unavailable Kusum Pardo Attending Unavailable Praneeth, Geri Chi Attending Unavailable Praneeth, Geri Chi Primary Care Unavailable Praneeth, Geri Chi Attending Unavailable Praneeth, Geri Chi Primary Care Unavailable Praneeth, Geri Chi Attending Unavailable Praneeth, Geri Chi Primary Care Unavailable Marky Travis Attending Unavailable Marky Travis Referring Unavailable Praneeth, Geri Chi Primary Care Unavailable Moises Walton Attending Unavailable Moises Walton Referring Unavailable Praneeth, Geri Chi Primary Care Unavailable Marky Travis Attending Unavailable Praneeth, Geri Chi Primary Care Unavailable Marky Travis Referring Unavailable Car Dutta Consulting Unavailable Marky Travis Attending Unavailable Marky Travis Referring Unavailable Praneeth, Geri Chi Primary Care Unavailable Praneeth, Geri Chi Attending Unavailable Praneeth, Geri Chi Primary Care Unavailable RENETTA ANDERSON Attending Unavailable MARKY TRAVIS Referring Unavailable ETHAN ANDERSON Attending Unavailable MOODVICENTAMARKY Martinez Referring Unavailable PRANEETH, GERI-CHI Primary Care Unavailable PROBLEMS PROBLEMS DATE TYPE CONDITION / CODE ATTENDING STATUS SOURCE 06/25/2018 Unknown I48.0 - Paroxysmal Moodispaw, Active [place] atrial fibrillation [facility] / I48.0(ICD-10) Hospital Repository 06/25/2018 Unknown Z79.01 - care home Moodispaw, Active [place] (current) use of [facility] anticoagulants / Hospital Z79.01(ICD-10) Repository 03/06/2018 Unknown R53.83 - Other Praneeth, Geri Chi Active [place] fatigue / Community R53.83(ICD-10) Hospital Repository 03/01/2016 Active Hypothyroidism, COURSON, Active [place] unspecified / [facility] Other E03.9(ICD-10) [place] Repository 03/01/2016 Active Persistent atrial COURSON, Active [place] fibrillation / [facility] Other I48.1(ICD-10) [place] Repository 03/01/2016 Active Presence of other COURSON, Active [place] vascular implants [facility] Other and grafts / [place] Z95.828(ICD-10) Repository 02/09/2018 Active Essential (primary) COURSON, Active [place] hypertension / [facility] Other I10(ICD-10) [place] Repository 03/01/2016 Admitting Unknown / COURSON, Active [place] [facility] diagnosis UNK(Unknown) [facility] Repository 02/01/2018 Unknown I48.2 - Chronic David, Koffi Active [place] atrial fibrillation Community / I48.2(ICD-10) Hospital Repository 02/01/2018 Unknown I25.10 - David, Koffi Active [place] Atherosclerotic Community heart disease of Hospital [place] coronary Repository artery without angina pectoris / I25.10(ICD-10) 02/01/2018 Unknown I10 - Essential David, Deming Active [place] (primary) Community hypertension / Hospital I10(ICD-10) Repository 10/26/2017 Unknown E03.9 - Praneeth, Geri Chi Active [place] Hypothyroidism, Community unspecified / Hospital E03.9(ICD-10) Repository 12/20/2017 Unknown I48.91 - Unspecified Vazquez, Active [place] atrial fibrillation Oxana Leonard [facility] / I48.91(ICD-10) Hospital Repository 11/13/2017 Unknown Z98.890 - Other Vazquez, Active [place] specified [facility] postprocedural Hospital states / Repository Z98.890(ICD-10) 11/13/2017 Unknown Z86.79 - Personal George, Active [place] history of other [facility] diseases of the Hospital circulatory system / Repository Z86.79(ICD-10) PROCEDURES PROCEDURES No Procedure Records FoundRESULTS RESULTS PROTHROMBIN TIME W/INR Collected: 07/03/2018 Status: F Source: [place] 12:36 PM [facility] TYPE CODE TESTS RESULT OUT OF RANGE REFERENCE UNITS LAB L300.4150 11.7-14.9 SECONDS High PROTIME 17.0 LAB L300.4200 Normal INR 1.4 Performed By: #### L300.3900 #### [facility] [address] [place], [address] THYROID STIM HORMONE Collected: 06/05/2018 Status: F Source: [place] (TSH) 3:19 PM [facility] TYPE CODE TESTS RESULT OUT OF RANGE REFERENCE UNITS LAB L501.9520 0.358-3.74 uIU/mL Normal TSH 1.75 Performed By: #### L501.9520 #### [facility] [address] [place] [place], [address] PROTHROMBIN TIME W/INR Collected: 05/31/2018 Status: F Source: [place] 12:58 PM [facility] TYPE CODE TESTS RESULT OUT OF RANGE REFERENCE UNITS LAB L300.4150 11.7-14.9 SECONDS High PROTIME 20.2 LAB L300.4200 Normal INR 1.7 Performed By: #### L300.3900 #### [facility] [address] [place], [address] CBC W/DIFF, AUTOMATED Collected: 04/26/2018 Status: F Source: [place] 2:40 PM [facility] TYPE CODE TESTS RESULT OUT OF RANGE REFERENCE UNITS LAB L100.1000 4.4-11.0 K/mm3 High WBC 12.8 LAB L100.1200 4.6-6.2 M/mm3 Normal RBC 4.60 LAB L100.1300 13.0-16.5 g/dl Normal HGB 14.1 LAB L100.1400 40-54 % Normal HCT 41.8 LAB L100.1500 80-94 fL Normal MCV 90.9 LAB L100.1600 27.0-32.0 pg Normal MCH 30.7 LAB L100.1700 32-36 g/gl Normal MCHC 33.7 LAB L100.1810 11.6-14.6 % Normal RDW CV 14.6 LAB L100.1820 35.1-43.9 fl High RDW SD 47.8 LAB L100.1900 150-450 K/mm3 Normal PLT 245 LAB L100.2000 6.2-12.0 fl Normal MPV 11.1 LAB L100.2100 47-70 % High NEUT% 83.8 LAB L100.2200 19-41 % Low LY% 8.2 LAB L100.2300 0-10 % Normal MONO% 5.8 LAB L100.2400 0-5 % Normal EO% 0.4 LAB L100.2500 0-1 % Normal BASO% 0.2 LAB L100.2550 0.0-0.9 % High IM GRAN % 1.600 Result Comment: IG% - Immature Granulocytes (promyelocytes, myelocytes and metamyelocytes) > 1% indicates that a LEFT SHIFT is Present. LAB L100.2620 2.0-7.7 X10 3/uL High Absolute Neut 10.7 LAB L100.2720 0.83-4.51 X10 3/ul Normal Absolute Lymph 1.05 Performed By: #### L100.0100 #### [facility] [address] [place], [place], [address] COMPREHENSIVE METABOLIC Collected: 04/26/2018 Status: F Source: [facility] 2:40 PM [facility] TYPE CODE TESTS RESULT OUT OF RANGE REFERENCE UNITS LAB L501.0100 74-106 mg/dL High GLU 337 Result Comment: Glucose result greater than or equal to 200 mg/dL suggests DIABETES MELLITUS per A.D.A. criteria. Please note revised GLUCOSE reference range effective 2017. LAB L501.1000 7-18 mg/dL High BUN 25 LAB L501.1100 0.70-1.30 mg/dL Normal CREAT,SERUM 1.24 Result Comment: The validity of the calculated GFR AND GFRAA in patients over 70 years has not been determined. Clinical correlation is essential. LAB L501.1110 >60 mL/min Normal EST GFR 61 Result Comment: Non- GFR Calc LAB L501.1115 >60 mL/min Normal EST GFR - AA 73 Result Comment: GFR Calc LAB L501.1300 10-20 RATIO High BUN/CRE 20.2 LAB L501.1500 6.4-8.2 g/dL T Normal PROT 6.7 LAB L501.1800 3.2-5.0 g/dL Normal ALB 3.4 LAB L501.1950 2.2-4.2 g/dL Normal GLOB 3.3 LAB L501.2000 0.9-2.4 RATIO Normal A/G 1.0 LAB L501.2200 8.5-10.1 mg/dL CA Normal 8.5 LAB L501.4100 15-37 U/L Low AST 8 LAB L501.4305 45-117 U/L Normal ALK P 84 LAB L501.4405 16-61 U/L Normal ALT 31 LAB L501.4600 0.20-1.00 mg/dL High T BILI 1.60 LAB L501.5300 136-145 mmol/L NA Normal 137 LAB L501.5600 3.5-5.1 mmol/L K Normal 4.6 LAB L501.5900 98-107 mmol/L CL Normal 102 LAB L501.6100 21.0-32.0 mmol/L Normal CO2 26.0 LAB L501.6200 5-15 Normal GAP 9 Performed By: #### L500.4050, L501.9520 #### [facility] [address]. [place], [place], [id number] THYROID STIM HORMONE Collected: 04/26/2018 Status: F Source: [place] (TSH) 2:40 PM [facility] TYPE CODE TESTS RESULT OUT OF RANGE REFERENCE UNITS LAB L501.9520 0.358-3.74 uIU/mL Low TSH 0.13 Performed By: #### L500.4050, L501.9520 #### [facility] [address] [place], [place], [address] VITAMIN D,25 HYDROXY Collected: 04/26/2018 Status: F Source: [place] 2:40 PM [facility] TYPE CODE TESTS RESULT OUT OF REFERENCE UNITS RANGE LAB L506.1000 29.95-100.01 ng/mL Low Vitamin D 16.1 25-OH Result Comment: Vitamin D 25(OH) Status Range Deficiency <20 ng/mL (50nmol/L) Insuffciency 20 - 30 ng/mL (50 - 75 nmol/L) Sufficiency 30 - 100 ng/mL (75 - 250 nmol/L) Toxicity >100 ng/mL (>250 nmol/L) Performed By: #### L506.1000, L509.3000 #### [facility] [address] [place], [address] TESTOSTERONE, SERUM TOTAL Collected: 04/26/2018 Status: F Source: [place] 2:40 PM [facility] TYPE CODE TESTS RESULT OUT OF REFERENCE UNITS RANGE LAB L509.3000 ng/dL Testosterone Normal 233.71 Result Comment: NORMAL REFERENCE RANGES MALE AGE <50 123.06 - 813.86 ng/dL MALE AGE >50 89.98 - 780.10 ng/dL FEMALE PREMENOPAUSE AGE 21 - 60 9.01 - 47.94 ng/dL FEMALE POSTMENOPAUSE AGE 45 - 89 <7.00 - 45.62 ng/dL REFERENCE RANGE AND METHODOLOGY CHANGED 06/14/2017 Performed By: #### L506.1000, L509.3000 #### [place] [facility] [address] [place], [address] HEMOGLOBIN A1C Collected: 04/26/2018 Status: F Source: [place] 2:40 PM [facility] Order Comment: ADD ON TYPE CODE TESTS RESULT OUT OF RANGE REFERENCE UNITS LAB L501.9985 4.2-6.3 % High HGB A1C 9.7 Performed By: #### L501.9985 #### [facility] [address] [place], [address] CARDIOLOGY VISIT Observed: 03/19/2018 Status: F Source: [place] REPORT 3:23 PM [facility] [address] [place] [address] OFFICE VISIT Date of Service: 03/19/18 MR#: [id number] Acct: [id number] Name: ISRAEL ERAZO Rep #: [id number] : 1945 Provider: Marky Travis MD Age/Sex: 72/M Location[place] [facility] [place] Status: Signed HPI HPI Details: ISRAEL ERAZO, is a 72 M who presents to the office today for for outpatient cardiovascular follow-up of his history of underlying thoracic aortic aneurysm status post aneurysm repair/aortic valve repair, PYB-oss-jnjefxvwedopjooa significant, atrial fibrillation, hyperlipidemia, and hypertension. Overall he states his main concern, which he believes occurred with the recurrence of atrial fibrillation, has been fatigued. He has had no ongoing chest discomfort or difficulty breathing. He has had no episodes of acute CHF or pulmonary edema. There has been no near syncope or syncope. He has been treated medically. He underwent synchronized biphasic DC cardioversion. He regained sinus rhythm however it did not appear to last for a long period of time. He has been evaluated by Dr. Anderson of electrophysiology at [facility]. He has been given the options of continued conservative medical management, antiarrhythmic therapy, or EPS/RFA. At the present time he has opted for continued conservative medical management with rate control and anticoagulant therapy. He is not convinced that he wants to attempt antiarrhythmic therapy. He states the thought of EPS/RFA appeared to be less likely an option based upon concerns of a lower percentage of regaining and maintaining sinus rhythm indefinitely. Intake Vital Signs03/19/18 Height 6 ft 5 in 03/19/18 Weight: 278 lb 03/19/18 Body Mass Index (BMI) 32.9 03/19/18 Blood Pressure 114/62 Intake Visit Reasons: s/p Refferal Allergies No Known Allergies Allergy (Verified 03/19/18 13:47) Medications Pravastatin [Pravachol] 40 mg PO QHS 03/09/16 [History Confirmed 03/19/18] Tamsulosin HCl [Flomax] 0.8 mg PO DAILY 03/09/16 [History Confirmed 03/19/18] warfarin 4 mg tablet 4 mg PO .COMPLEX 07/18/17 [History Confirmed 03/19/18] warfarin 6 mg tablet 6 mg PO QDAY #90 tab 08/09/17 [Rx Confirmed 03/19/18] metoprolol tartrate 25 mg tablet 25 mg PO BID #180 tab 09/26/17 [Rx Confirmed 03/19/18] losartan 100 mg-hydrochlorothiazide 25 mg tablet 1 tab PO DAILY #90 tab 10/09/17 [Rx Confirmed 03/19/18] dutasteride 0.5 mg capsule 0.5 mg PO DAILY 03/19/18 [History Confirmed 03/19/18] finasteride 5 mg tablet 5 mg PO DAILY 03/19/18 [History Confirmed 03/19/18] levothyroxine 175 mcg tablet 175 mcg PO DAILY 03/19/18 [History Confirmed 03/19/18] [facility] Medical History Hypothyroidism (Chronic) Paroxysmal atrial fibrillation (Chronic) Aortic valve disease (Resolved) Thoracic aortic aneurysm without rupture (Resolved) Atherosclerotic heart disease of [place] coronary artery without angina pectoris (Chronic) Syncope and collapse (Acute) BPH (benign prostatic hyperplasia) (Acute) Surgical History History of aortic valve repair (Resolved) History of aortic aneurysm repair (Resolved) History of cardiac radiofrequency ablation (Resolved) History of knee surgery (Resolved) History of tonsillectomy (Resolved) History of vasectomy (Resolved) Family History Father Hypertension Heart disease Social History Smoking Status: Former smoker alcohol intake: current alcohol intake frequency: 0-2 drinks per day Alcohol type: wine substance use type: does not use caffeine: Yes Type: coffee Number of servings: 1 what type of physical activity do you participate in: none ROS Const Const: Positive for fatigue (increased); negative for weakness, weight gain, weight loss, frequent falls or excessive sweating Eyes Eyes: Negative for change in vision, blurry vision or transient loss of vision ENT ENT: Positive for balance problems (slightly unsteady with ambulation); negative for dizziness Cardio Chest Pain: No Palpitations: No Edema: None Muscle aches with walking: None Resp Respiratory: Positive for SOB with activity (slight); negative for SOB at rest GI GI: Negative vomiting or vomiting blood/hematemesis : Negative for hematuria Musc Musc: Positive for balance problems (slightly unsteady with ambulation); negative for muscle aches/ myalgia, muscle weakness or joint pain Skin Skin: Negative non-healing lesions or rash Neuro Neuro: Negative for weakness, blurry vision, dizziness, lightheadedness, frequent falls or orthostatic symptoms Andrews Hematologic/Lymphatic: Negative for easy bleeding Endo Endo: Positive for fatigue (increased); negative for excessive sweating Psych Psych: Negative for anxiety or depression Allergy Allergy/Immunology: Negative for hives, Negative for rash Cardiology Exam Const Appearance: cooperative, no acute distress, well developed and comfortable Orientation: alert, awake and oriented x3 Head Head: normocephalic, atraumatic and normal to inspection Ears: hearing grossly normal bilaterally Nose: external nose normal Face and Sinus: face symmetric Mouth: moist mucous membranes Eyes General: appearance normal, both eyes and all related structures Conjunctivae: conjunctivae normal Pupils: PERRL EOM: EOM intact bilaterally Neck Neck: normal visual inspection, no JVD and full ROM Carotids: Negative bruit Neck Mass: Negative Neck mass Chest Chest inspection: normal inspection of the chest and symmetric chest movement Auscultation: Bilateral: Clear to Auscultation Cardio Palpation: normal PMI Rate: regular rate Rhythm: regular rhythm Heart sounds: S1 normal and S2 normal; negative rub, gallop or murmur GI GI: normal to inspection, soft and bowel sounds present; negative tender Neuro General: alert, awake, oriented x3 and moves all extremities Skin Skin: no rashes or lesions noted Extremities Pulses: Normal: Right Posterior Tibial Pulse, Left Posterior Tibial Pulse, Right Radial Pulse, Left Radial Pulse Lower Extremity Edema: None: Bilateral Psych Psychological: normal affect Supplemental Info According to a [facility] echocardiogram from 03/01/2016, with contrast related enhancement, his left ventricle was normal with an LVEF 55%, he was status post aortic valve repair with a peak gradient of 8 mmHg and a mean gradient of 4 mmHg He had an exercise tolerance test performed on 05/03/2016 EXERCISE TOLERANCE TEST: The patient exercised on a Dino protocol for 5 minutes completing stage I and 2 minutes of stage II, achieving a peak heart rate of 111 beats per minute (74% predicted maximum heart rate) and a peak blood pressure of 162/80 mmHg and a peak MET capacity of approximately 7 METs. The baseline ECG demonstrated normal sinus rhythm. The peak exercise ECG demonstrated no obvious ECG changes with the heart rate achieved with a recovery ECG demonstrating nonspecific T-wave abnormalities/inversion in (leads II, III, aVF and V5 through V6). There was an occasional PVC during recovery. The functional capacity was considered average. The patient had no complaint of chest discomfort during exercise or recovery. The examination was discontinued secondary to dyspnea. IMPRESSION: 1. Technically inadequate (percent predicted maximum heart rate less than 85%) exercise tolerance test. 2. Peak exercise ECG with no obvious ECG changes with the heart rate achieved with a recovery ECG demonstrating nonspecific T-wave abnormalities/inversion in (leads II, III and aVF and V5 through V6). 3. Occasional PVC during recovery. He had a cardiac catheterization performed on 10/13/2015 Final impression: 1. Elevated left ventricular end diastolic pressure compatible decreased diastolic compliance 2. Left ventricle: A. Normal left trigger size, wall motion, and systolic function B. Estimated LVEF 65% 3. Left main coronary artery: A. Angiographically normal 4. Left anterior descending coronary artery: A. At the level of the takeoff of 2 diagonal branches: A trifurcating point: The LAD appears to have a 25-50% tapering/stenosis 5. Left circumflex coronary artery: A Minimal luminal irregularities 6. Right coronary artery: A. Large dominant vessel B. Minimal luminal irregularities 7. Aortic root/ascending aorta: A. Aneurysmal He had an event monitor performed on 08/28/2015 During the 30 day monitoring period the basic rhythm was Sinus with an intermittent first degree AV block with rates from 47-109 bpm. Four episodes of Atrial Fibrillation with rates up to 157 bpm were noted. Occasional PAC s were noted. Occasional PVC s including bursts of IVR lasting 6- 10 beats with rates up to 56 bpm were noted. No patient symptoms were submitted. He had cardiothoracic surgery on 02/23/2016 at the [facility] [place]. This involved a valve preserving aortic root replacement and ascending aorta replacement with a 32 mm Valsalva graft with reimplantation of the coronary arteries and reimplantation of the aortic valve-a modified Lars procedure-and ligation of the left atrial appendage with a 40 mm atrial clip device He had synchronized biphasic DC cardioversion performed on 12/19/2017 Date of Procedure: 12/19/17 Procedure: Synchronized biphasic DC cardioversion Indications: Atrial fibrillation Consent: Per the patient Premedications: Per Dr. Dino Luna with propofol 100 mg IV push total Procedure: Synchronized biphasic DC cardioversion: 200 J 1: Result: Atrial fibrillation Synchronized biphasic DC cardioversion: 300 J 1: Result: Sinus rhythm with premature ectopic complexes Complications: No apparent complications Assessment AND Plan 1. Thoracic aortic aneurysm without rupture I71.2 repair in 2015 at [facility] Plan At the present time he appears to be doing well with respect to his thoracic aortic issues. He will continue outpatient follow-up 2. Atherosclerosis of [place] coronary artery of [place] heart without angina pectoris I25.10 Mild Plan He has had no history of angiographically significant CAD. He will be monitored for any obvious concerns. 3. H/O aortic valve repair Z98.890; Z86.79 Aortic vavle repair AND aortic root replacement @ [facility] 02/23/16; Plan He is undergone aortic valve repair as noted above. Again he appears to be without acute symptoms or adverse events. He will continue to be followed per 4. Paroxysmal atrial fibrillation I48.0 ablation in 1997, multiple cardioversions Plan He has a history of atrial fibrillation. It appears to be remaining at this time. He is considering his options. At the moment he is still continuing conservative medical therapy with rate control and anticoagulant therapy 5. Pure hypercholesterolemia E78.00 Plan He will continue risk factor evaluation and care as deemed appropriate. 6. Essential hypertension I10 Plan His blood pressure appears to be recently well controlled. He will continue medical management. 7. care home current use of anticoagulant Z79.01 Plan He will continue to be followed with respect to his anticoagulant therapy. Dose Management Start Date: 11/22/17 09:57 Duration: Warfarin Therapy Reason: PAF (paroxysmal atrial fibrillation) Lab Test Data Target INR range is: 2.0 - 3.0 INR Recheck 3.0 03/19/18 04/02/18 Daily Dosing Information Daily Dosing for Warfarin entered on: 03/19/18Monday 3 mg 6 mg 6 mg 6 mg 6 mg 3 mg 3 mg Daily Dosing Instructions Starting on Monday, March 19, 2018, take your medications as shown in the table below: Medication Monday warfarin 4 mg tablet 0 0 0 0 0 0 0 Plan Detail Additional Comments Thank you for allowing me to participate in the care of your patient. Please don't hesitate to call if any issues arise. This note was generated using a voice recognition system and there may be incorrect words, spelling or punctuation that were not noted when reviewing the office note prior to saving. Follow Up 6 Months Coding Level of Care Code Off vis,est,level 3 Diagnoses Thoracic aortic aneurysm without rupture I71.2 Atherosclerosis of [place] coronary artery of [place] heart without angina pectoris I25.10 [place] vs. transplanted heart: [place] heart H/O aortic valve repair Z98.890; Z86.79 Paroxysmal atrial fibrillation I48.0 Pure hypercholesterolemia E78.00 Hyperlipidemia type: pure hypercholesterolemia Essential hypertension I10 Hypertension type: essential hypertension care home current use of anticoagulant Z79.01 Coding Level of Care Code Off vis,est,level 3 Diagnoses Thoracic aortic aneurysm without rupture I71.2 Atherosclerosis of [place] coronary artery of [place] heart without angina pectoris I25.10 [place] vs. transplanted heart: [place] heart H/O aortic valve repair Z98.890; Z86.79 Paroxysmal atrial fibrillation I48.0 Pure hypercholesterolemia E78.00 Hyperlipidemia type: pure hypercholesterolemia Essential hypertension I10 Hypertension type: essential hypertension care home current use of anticoagulant Z79.01 03/19/18 1523 <Electronically signed by Marky Travis MD> Date Marky Travis MD Cosigner Signature: Date (if applicable) CC: Geri Hanks MD PROTHROMBIN TIME W/INR Collected: 03/19/2018 Status: F Source: [place] C 10:57 AM [facility] TYPE CODE TESTS RESULT OUT OF RANGE REFERENCE UNITS LAB L300.4150 11.7-14.9 SECONDS High PROTIME 31.7 LAB L300.4200 Normal INR 3.0 Performed By: #### L300.3900 #### [facility] [place], [address] PROTHROMBIN TIME W/INR Collected: 03/12/2018 Status: F Source: [place] C 12:52 PM [facility] TYPE CODE TESTS RESULT OUT OF RANGE REFERENCE UNITS LAB L300.4150 11.7-14.9 SECONDS High PROTIME 20.8 LAB L300.4200 Normal INR 1.8 Performed By: #### L300.3900 #### [facility] [address] [place], [address] Observed: 03/06/2018 Status: F Source: [place] RESPIRATORY PANEL 12:50 PM [facility] RP PANEL ADENOVIRUS Not Detected HUMAN METAPHNEUMO Not Detected INFLUENZA A Not Detected INFLUENZA A (SUBTYPE H1) Not Detected INFLUENZA A (SUBTYPE H3) Not Detected INFLUENZA B Not Detected PARAINFLUENZA 1 Not Detected PARAINFLUENZA 2 Not Detected PARAINFLUENZA 3 Not Detected PARAINFLUENZA 4 Not Detected RHINOVIRUS Not Detected RSV A Not Detected RSV B Not Detected NAAT METHOD Testing was performed using nucleic acid amplification Performed By: #### M100.638 #### [facility] [address] [place], [address] CBC W/DIFF, AUTOMATED Collected: 03/06/2018 Status: F Source: [place] 11:37 AM [facility] TYPE CODE TESTS RESULT OUT OF RANGE REFERENCE UNITS LAB L100.1000 4.4-11.0 K/mm3 High WBC 16.1 LAB L100.1200 4.6-6.2 M/mm3 Normal RBC 4.84 LAB L100.1300 13.0-16.5 g/dl Normal HGB 14.3 LAB L100.1400 40-54 % Normal HCT 43.7 LAB L100.1500 80-94 fL Normal MCV 90.3 LAB L100.1600 27.0-32.0 pg Normal MCH 29.5 LAB L100.1700 32-36 g/gl Normal MCHC 32.7 LAB L100.1810 11.6-14.6 % Normal RDW CV 13.7 LAB L100.1820 35.1-43.9 fl High RDW SD 45.3 LAB L100.1900 150-450 K/mm3 Normal PLT 257 LAB L100.2000 6.2-12.0 fl Normal MPV 11.2 LAB L100.2100 47-70 % High NEUT% 90.1 LAB L100.2200 19-41 % Low LY% 8.8 LAB L100.2300 0-10 % Normal MONO% 0.0 LAB L100.2400 0-5 % Normal EO% 0.4 LAB L100.2500 0-1 % Normal BASO% 0.1 LAB L100.2550 0.0-0.9 % Normal IM GRAN % 0.600 Result Comment: IG% - Immature Granulocytes (promyelocytes, myelocytes and metamyelocytes) > 1% indicates that a LEFT SHIFT is Present. LAB L100.2620 2.0-7.7 X10 3/uL High Absolute Neut 14.4 LAB L100.2720 0.83-4.51 X10 3/ul Normal Absolute Lymph 1.42 Performed By: #### L100.0100 #### [facility] [address] [place], [address] BASIC METABOLIC Collected: 03/06/2018 Status: F Source: [place] PROFILE ([facility]) 11:37 AM [facility] TYPE CODE TESTS RESULT OUT OF RANGE REFERENCE UNITS LAB L501.0100 74-106 mg/dL High GLU 197 Result Comment: Fasting Glucose result greater than or equal to 126 mg/dL suggests DIABETES MELLITUS per A.D.A. criteria. Please note revised GLUCOSE reference range effective 2017. LAB L501.1000 7-18 mg/dL High BUN 62 LAB L501.1100 0.70-1.30 mg/dL High CREAT,SERUM 1.97 Result Comment: The validity of the calculated GFR AND GFRAA in patients over 70 years has not been determined. Clinical correlation is essential. LAB L501.1110 >60 mL/min Low EST GFR 36 Result Comment: Non- GFR Calc LAB L501.1115 >60 mL/min Low EST GFR - AA 43 Result Comment: GFR Calc LAB L501.1300 10-20 RATIO High BUN/CRE 31.5 LAB L501.2200 8.5-10.1 mg/dL CA Normal 9.2 LAB L501.5300 136-145 mmol/L NA Normal 136 LAB L501.5600 3.5-5.1 mmol/L K Normal 4.3 LAB L501.5900 98-107 mmol/L CL Normal 99 LAB L501.6100 21.0-32.0 mmol/L Normal CO2 29.0 LAB L501.6200 5-15 Normal GAP 8 Performed By: #### L500.2500 #### [facility] [address] [facility] [place], [address] Observed: 03/01/2018 Status: F Source: [place] C CULTURE, URINE 3:00 PM [facility] Urine Culture ORGANISM 1: Mixed Gram Pos AND Gram Neg Org [place] Count 1000-10,000 MIX CULTURE Mixed contaminants. Submit a new specimen if indicated. Performed By: #### M100.0650 #### [facility] [address] [place], [address] PROTHROMBIN TIME W/INR Collected: 03/01/2018 Status: F Source: [place] C 11:37 AM [facility] TYPE CODE TESTS RESULT OUT OF RANGE REFERENCE UNITS LAB L300.4150 11.7-14.9 SECONDS High PROTIME 22.3 LAB L300.4200 Normal INR 2.0 Performed By: #### L300.3900 #### [facility] [place], [address] PROTHROMBIN TIME W/INR Collected: 02/21/2018 Status: F Source: [place] 11:13 AM [facility] Order Comment: CRITICAL VALUE VERIFIED. CALLED TO CY 02/21/18 Familia Siu. RESULTS READ BACK BY [facility] . TYPE CODE TESTS RESULT OUT OF REFERENCE UNITS RANGE LAB L300.4150 11.7-14.9 SECONDS High PROTIME 38.9 LAB L300.4200 High alert INR 4.0 Performed By: #### L300.3900 #### [facility] [address] [place], [address] PROGRESS Observed: 02/09/2018 Status: COMPLETED Source: [place] 3:44 PM CLIN[facility] OTHER CAMPUS REPOSITORY HNO ID: [id number] Author: Renetta Anderson Service: (none) Author Type: Physician Type: Progress Notes Filed: 02/09/2018 4:05 PM Note Text: PRIMARY CARE PHYSICIAN: Geri Hanks MD [address] [address] REFERRING PHYSICIAN: Marky Travis MD ([facility]) [address] [address] CHIEF COMPLAINT: Atrial fibrillation HISTORY OF PRESENT ILLNESS: Mr. Erazo is a 72 year old male who presents today for an opinion about management of atrial fibrillation including ablation. [place] had atrial flutter with ablation by Dr. Paiz in 1998 and had done well from a rhythm perspective until his aorta surgery. He had 3 CV prior to his flutter ablation. He underwent an aortic root repair/replacement in September 2015, he had reimplantation of his coronaries to the root graft and an atriclip occlussion of his appendage. He was noted after surgery to be in atrial fibrillation, but believes he did not require a CV. He was mainained on amiodarone following surgery and indicates this was stopped about 6 months ago, he doesn't recall and side effects and believes it was as his rhythm had been very stable. He was noted in October to be back in atrial fibrillation, his rates were well controlled and he was surprised to find that he was out of rhythm as he reports he felt well and was largely asymptomatic. He underwent a CV in November and with two shocks sinus rhythm was restored, but indicates that a week later he was found to be back in fibrillation. He indicates he really didn't notice a difference after the CV and really was not able to tell when he went back out of rhythm. As a side note his ECGs have consistently showed PVCs and this appears to not be a new finding. His CHADSVASC score is 2 (age >65, HTN) and he is already on warfarin . He denies chest pain, shortness of breath, palpitations, lightheadedness or syncope. PAST CARDIAC HISTORY: ascending thoracic aorta with repair PAST MEDICAL HISTORY Diagnosis Date - Aneurysm of thoracic aorta (HCC) - Atrial flutter (HCC) s/p CTI RFA 1998 - BPH (benign prostatic hypertrophy) without ouflow obstruction - Dilated aortic root (HCC) - Essential hypertension - Hyperlipidemia - Hypothyroidism - PAF (paroxysmal atrial fibrillation) (HCC) - Primary erectile dysfunction - Prostate cancer (HCC) s/p XRT 2012 - Syncope PAST SURGICAL HISTORY Procedure Laterality Date - ATRIAL FIBRILLATION/FLUTTER ABLATION - CARDIAC CATH 10/13/2015 - HEART VALVE REPAIR aortic valve - KNEE SURGERY HX - TONSILLECTOMY HX - VASECTOMY HX SOCIAL HISTORY Social History Substance Use Topics - Smoking status: Former Smoker - Smokeless tobacco: Former User Quit date: 02/02/1996 - Alcohol use Yes FAMILY HISTORY Problem Relation Age of Onset - Hypertension Father ALLERGIES: ALLERGIES No Known Allergies MEDICATIONS: predniSONE (DELTASONE) 10 mg tablet Take 10 mg by mouth twice daily. metoprolol tartrate, short acting, (LOPRESSOR) 25 mg tablet Take 1 tablet by mouth twice daily. losartan (COZAAR) 50 mg tablet Take 1 tablet by mouth once daily. levothyroxine (SYNTHROID) 175 mcg tablet Take 1 tablet by mouth once daily. warfarin (COUMADIN) 4 mg tablet Do not take coumadin (warfarin) today (03/01) Please have your PT/INR checked at Dr. Travis's office on 03/02/2016 and they will advise you on further dosing tamsulosin ER (FLOMAX) 0.4 mg cp24 Take 0.4 mg by mouth twice daily. pravastatin (PRAVACHOL) 40 mg tablet Take 40 mg by mouth once daily. REVIEW OF SYSTEMS: GENERAL: Negative for: Weight loss or gain, Fever or Chills, Weakness and Sleep difficulties. HEENT: Negative for: Headache, Impaired Vision, Glasses, Hearing Impairment, Ringing in Ears, Nosebleeds, Poor dental care, Bleeding Gums, Dentures NECK: Negative for: Swelling, Pain, Stiffness RESPIRATORY: Negative for: Cough, Blood in Sputum, Shortness of breath, Wheezing, Apnea GASTROINTESTINAL: Negative for: Trouble swallowing, Heartburn, Change in bowel habits, Blood in stool, Dark black stools MUSCULOSKELETAL: Negative for: Muscle or joint pain, Stiffness , Joint swelling NEUROLOGIC/PSYCHIATRIC: Negative for: Weakness, Paralysis, Numbness, Tingling, Tremor, Nervousness, Depressed mood, Memory loss SKIN: Negative for: Rashes, Itching HEMATOLOGICAL/LYMPHATIC: Negative for: Easy bruising , Easy bleeding ENDOCRINE: Negative for: Heat or cold intolerance, Excessive sweating, Frequent urination, Frequent thirst PHYSICAL EXAMINATION: BP 140/80 Pulse 97 Ht 6' 5 (1.96m) Wt 280 lb (127.0kg) SpO2 97% BMI 33.20 kg/(m2). General: Well appearing, in no acute distress. Skin: No clubbing, no cyanosis. Eyes: Extra ocular movements intact Oropharynx: Teeth in good repair. Neck: No jugular venous distention, no carotid bruits, carotids have a normal upstroke, no palpable thyromegaly. Lungs: Clear to auscultation bilaterally, no wheezing or rhonchi. Heart: Regular rhythm, PMI not displaced, S1, S2 normal, no S3, no S4, no heaves, no rub and no murmur. Abdomen: Soft, nontender, bowel sounds normal, no palpable organomegaly, no bruits. Extremities: No peripheral edema . Grade 2/4 distal pulses bilaterally. Neuro: Oriented to person, place and time, alert, cooperative, gait coordinated. CARDIOVASCULAR MEDICINE TESTING: Electrocardiogram: atrial fibrillation 95 bpm I have personally reviewed the Electrocardiogram. IMPRESSION: 1. Atrial fibrillation, persistent (HCC) - ICD9: 427.31, ICD10: I48.1 (primary diagnosis) 2. Hx of ascending aorta replacement - ICD9: V15.1, V43.4, ICD10: Z95.828 3. Hypothyroidism, unspecified type - ICD9: 244.9, ICD10: E03.9 4. Essential hypertension - ICD9: 401.9, ICD10: I10 PLAN AND RECOMMENDATIONS: I discussed atrial fibrillation and the clinical implications of the disease. We discussed thromboembolic risk and the role of anticoagulation. We discussed symptom control and management options, including rate control, antiarrhythmic therapy for rhythm control and ablation therapy for rhythm control. I compared and contrasted each of the management options and also discussed potential role for a pacemaker and AV yumiko ablation as a form of rate control. I answered their questions and they indicated that I addressed their concerns and that they understood our conversation. I spent over an hour reviewing the above information, discussing treatment options and answering Mr. Erazo's questions. Both he and his indicated that they were satisfied with our discussion and that I provided them with information to help him plan his care. I discussed with Mr. Erazo, that based on his being largely asymptomatic and and not having a noticeable improvement in symptoms after CV, I actually think he would do well with rate control and continued anticoagulation. I also discussed that though he had the atriclip, as long as he has no contraindications, that I advise him to continue the warfarin for thromboembolism protection. I reviewed ablation in detail, but cautioned with his prior surgery and modest symptoms, we would recommend a trial of antiarrhythmic therapy prior to pursuing ablation and we discussed the efficacy and recurrence rates. We discussed if he did not have adverse effects from the amiodarone, we could resume the amiodarone and perform a repeat CV in a month (I reviewed the side effects of amiodarone with him) Alternatively we could used either tikosyn or sotalol and I discussed the concerns with proarrhythmia and the need to start in the hospital. If we were to chose one of these options, I would try tikosyn as I believe has a higher probability of being effective. With either medication, I would need to check a current GFR, we would admit for three days and perform CV while admitted. I discussed that if we attempted antiarrhythmic therapy and he noticed a significant improvement in his quality of life but the med was ineffective at controlling his rhythm or not well tolerated, then at that point would consider ablation. I did give him a brochure about afib and one about tikosyn. He is leaning towards staying with rate control, I encouraged him to consider the information that we discussed today, to discuss it with his and then decide. I did ask that if he does decide to stay with rate control to call and let me know. I am not making a scheduled follow up visit, but ensured he has my contact information, I stressed that if he decides to try antiarrhythmic therapy to call and will set up. If he has additional questions or new rhythm concerns occur to call, I also stressed that I am happy to reassess or help manage any heart rhythm concerns that he or Dr. Travis has. CNOV Observed: 02/09/2018 Status: COMPLETED Source: [place] 2:30 PM [facility]IN[facility] OTHER [facility] REPOSITORY Office Visit (AGCARDPHRA) [place] ERAZO ([id number]) 1945 M Date Time Provider Department 02/09/18 2:30 PM RENETTA ANDERSON During your visit today, we recorded the following information about you: Pulse Blood pressure Weight Height 97/minute 140/80 127 kg 1.956 m Carmen BlackANGELA 02/09/2018 2:31 PM Signed Mr. Erazo is here in referral per Dr. Travis for paroxysmal atrial fib. Carmen BlackANGELA Renetta Dignapreeti, 02/09/2018 4:05 PM Signed PRIMARY CARE PHYSICIAN: Geri Hanks MD [address] [place] [address] REFERRING PHYSICIAN: Marky Travis MD ([facility]) [address] [facility] [place] [address] CHIEF COMPLAINT: Atrial fibrillation HISTORY OF PRESENT ILLNESS: Mr. Erazo is a 72 year old male who presents today for an opinion about management of atrial fibrillation including ablation. [place] had atrial flutter with ablation by Dr. Paiz in 1998 and had done well from a rhythm perspective until his aorta surgery. He had 3 CV prior to his flutter ablation. He underwent an aortic root repair/replacement in September 2015, he had reimplantation of his coronaries to the root graft and an atriclip occlussion of his appendage. He was noted after surgery to be in atrial fibrillation, but believes he did not require a CV. He was mainained on amiodarone following surgery and indicates this was stopped about 6 months ago, he doesn't recall and side effects and believes it was as his rhythm had been very stable. He was noted in October to be back in atrial fibrillation, his rates were well controlled and he was surprised to find that he was out of rhythm as he reports he felt well and was largely asymptomatic. He underwent a CV in November and with two shocks sinus rhythm was restored, but indicates that a week later he was found to be back in fibrillation. He indicates he really didn't notice a difference after the CV and really was not able to tell when he went back out of rhythm. As a side note his ECGs have consistently showed PVCs and this appears to not be a new finding. His CHADSVASC score is 2 (age >65, HTN) and he is already on warfarin . He denies chest pain, shortness of breath, palpitations, lightheadedness or syncope. PAST CARDIAC HISTORY: ascending thoracic aorta with repair PAST MEDICAL HISTORY Diagnosis Date - Aneurysm of thoracic aorta (HCC) - Atrial flutter (HCC) s/p CTI RFA 1998 - BPH (benign prostatic hypertrophy) without ouflow obstruction - Dilated aortic root (HCC) - Essential hypertension - Hyperlipidemia - Hypothyroidism - PAF (paroxysmal atrial fibrillation) (HCC) - Primary erectile dysfunction - Prostate cancer (HCC) s/p XRT 2012 - Syncope PAST SURGICAL HISTORY Procedure Laterality Date - ATRIAL FIBRILLATION/FLUTTER ABLATION - CARDIAC CATH 10/13/2015 - HEART VALVE REPAIR aortic valve - KNEE SURGERY HX - TONSILLECTOMY HX - VASECTOMY HX SOCIAL HISTORY Social History Substance Use Topics - Smoking status: Former Smoker - Smokeless tobacco: Former User Quit date: 02/02/1996 - Alcohol use Yes FAMILY HISTORY Problem Relation Age of Onset - Hypertension Father ALLERGIES: ALLERGIES No Known Allergies MEDICATIONS: predniSONE (DELTASONE) 10 mg tablet Take 10 mg by mouth twice daily. metoprolol tartrate, short acting, (LOPRESSOR) 25 mg tablet Take 1 tablet by mouth twice daily. losartan (COZAAR) 50 mg tablet Take 1 tablet by mouth once daily. levothyroxine (SYNTHROID) 175 mcg tablet Take 1 tablet by mouth once daily. warfarin (COUMADIN) 4 mg tablet Do not take coumadin (warfarin) today (03/01) Please have your PT/INR checked at Dr. Travis's office on 03/02/2016 and they will advise you on further dosing tamsulosin ER (FLOMAX) 0.4 mg cp24 Take 0.4 mg by mouth twice daily. pravastatin (PRAVACHOL) 40 mg tablet Take 40 mg by mouth once daily. REVIEW OF SYSTEMS: GENERAL: Negative for: Weight loss or gain, Fever or Chills, Weakness and Sleep difficulties. HEENT: Negative for: Headache, Impaired Vision, Glasses, Hearing Impairment, Ringing in Ears, Nosebleeds, Poor dental care, Bleeding Gums, Dentures NECK: Negative for: Swelling, Pain, Stiffness RESPIRATORY: Negative for: Cough, Blood in Sputum, Shortness of breath, Wheezing, Apnea GASTROINTESTINAL: Negative for: Trouble swallowing, Heartburn, Change in bowel habits, Blood in stool, Dark black stools MUSCULOSKELETAL: Negative for: Muscle or joint pain, Stiffness , Joint swelling NEUROLOGIC/PSYCHIATRIC: Negative for: Weakness, Paralysis, Numbness, Tingling, Tremor, Nervousness, Depressed mood, Memory loss SKIN: Negative for: Rashes, Itching HEMATOLOGICAL/LYMPHATIC: Negative for: Easy bruising , Easy bleeding ENDOCRINE: Negative for: Heat or cold intolerance, Excessive sweating, Frequent urination, Frequent thirst PHYSICAL EXAMINATION: BP 140/80 Pulse 97 Ht 6' 5 (1.96m) Wt 280 lb (127.0kg) SpO2 97% BMI 33.20 kg/(m2). General: Well appearing, in no acute distress. Skin: No clubbing, no cyanosis. Eyes: Extra ocular movements intact Oropharynx: Teeth in good repair. Neck: No jugular venous distention, no carotid bruits, carotids have a normal upstroke, no palpable thyromegaly. Lungs: Clear to auscultation bilaterally, no wheezing or rhonchi. Heart: Regular rhythm, PMI not displaced, S1, S2 normal, no S3, no S4, no heaves, no rub and no murmur. Abdomen: Soft, nontender, bowel sounds normal, no palpable organomegaly, no bruits. Extremities: No peripheral edema . Grade 2/4 distal pulses bilaterally. Neuro: Oriented to person, place and time, alert, cooperative, gait coordinated. CARDIOVASCULAR MEDICINE TESTING: Electrocardiogram: atrial fibrillation 95 bpm I have personally reviewed the Electrocardiogram. IMPRESSION: 1. Atrial fibrillation, persistent (HCC) - ICD9: 427.31, ICD10: I48.1 (primary diagnosis) 2. Hx of ascending aorta replacement - ICD9: V15.1, V43.4, ICD10: Z95.828 3. Hypothyroidism, unspecified type - ICD9: 244.9, ICD10: E03.9 4. Essential hypertension - ICD9: 401.9, ICD10: I10 PLAN AND RECOMMENDATIONS: I discussed atrial fibrillation and the clinical implications of the disease. We discussed thromboembolic risk and the role of anticoagulation. We discussed symptom control and management options, including rate control, antiarrhythmic therapy for rhythm control and ablation therapy for rhythm control. I compared and contrasted each of the management options and also discussed potential role for a pacemaker and AV yumiko ablation as a form of rate control. I answered their questions and they indicated that I addressed their concerns and that they understood our conversation. I spent over an hour reviewing the above information, discussing treatment options and answering Mr. Erazo's questions. Both he and his indicated that they were satisfied with our discussion and that I provided them with information to help him plan his care. I discussed with Mr. Erazo, that based on his being largely asymptomatic and and not having a noticeable improvement in symptoms after CV, I actually think he would do well with rate control and continued anticoagulation. I also discussed that though he had the atriclip, as long as he has no contraindications, that I advise him to continue the warfarin for thromboembolism protection. I reviewed ablation in detail, but cautioned with his prior surgery and modest symptoms, we would recommend a trial of antiarrhythmic therapy prior to pursuing ablation and we discussed the efficacy and recurrence rates. We discussed if he did not have adverse effects from the amiodarone, we could resume the amiodarone and perform a repeat CV in a month (I reviewed the side effects of amiodarone with him) Alternatively we could used either tikosyn or sotalol and I discussed the concerns with proarrhythmia and the need to start in the hospital. If we were to chose one of these options, I would try tikosyn as I believe has a higher probability of being effective. With either medication, I would need to check a current GFR, we would admit for three days and perform CV while admitted. I discussed that if we attempted antiarrhythmic therapy and he noticed a significant improvement in his quality of life but the med was ineffective at controlling his rhythm or not well tolerated, then at that point would consider ablation. I did give him a brochure about afib and one about tikosyn. He is leaning towards staying with rate control, I encouraged him to consider the information that we discussed today, to discuss it with his and then decide. I did ask that if he does decide to stay with rate control to call and let me know. I am not making a scheduled follow up visit, but ensured he has my contact information, I stressed that if he decides to try antiarrhythmic therapy to call and will set up. If he has additional questions or new rhythm concerns occur to call, I also stressed that I am happy to reassess or help manage any heart rhythm concerns that he or Dr. Travis has. 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.828] Hypothyroidism, unspecified type [E03.9] Essential hypertension [I10] Order(s):EKG WITH INTERPRETATION [43148FPJ] Order #: [id number]: 1 metoprolol tartrate, short acting, (LOPRESSOR) 25 mg tabletTake 1 tablet by mouth twice daily.Disp: 60 tabletRfl: 5 losartan (COZAAR) 50 mg tabletTake 1 tablet by mouth once daily.Disp: 30 tabletRfl: 0 levothyroxine (SYNTHROID) 175 mcg tabletTake 1 tablet by mouth once daily.Disp: 30 tabletRfl: 0 Prescriptions as of 02/09/2018 Sig: PREDNISONE 10 MG TABLET Take 10 mg by mouth twice leta* METOPROLOL TARTRATE 25 MG TAB* Take 1 tablet by mouth twice * LOSARTAN 50 MG TABLET Take 1 tablet by mouth once d* LEVOTHYROXINE 175 MCG TABLET Take 1 tablet by mouth once d* WARFARIN 4 MG TABLET Do not take coumadin (warfari* TAMSULOSIN 0.4 MG CAPSULE Take 0.4 mg by mouth twice da* PRAVASTATIN 40 MG TABLET Take 40 mg by mouth once jae* Medication notes this encounter LEVOTHYROXINE 200 MCG TABLET >> Carmen Black LPN 02/09/2018 2:29 PM >> CARMEN BLACK Fri Feb 09, 2018 2:29 PM He is now taking 175mcg daily on 02-09-2018 Problem List As Of Date 02/09/2018 Noted Resolved Dilated aortic root (HCC) [I77.810] Hypertension [I10] 02/27/2016 Priority: B More... More... PAF (paroxysmal atrial fibrillation) (HCC) [I48* 03/01/2016 Priority: C More... Discharge planning issues [Z02.9] INVALID FOR* More... Preop testing [Z01.818] INVALID FOR* More... 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 More... More... Obesity (BMI 30.0-34.9) [E66.9] INVALID FOR* Priority: M More... Atelectasis [J98.11] INVALID FOR* Priority: B More... BPH (benign prostatic hypertrophy) [N40.0] INVALID FOR* Priority: F More... More... Fluid overload [E87.70] INVALID FOR* Priority: F More... Stress hyperglycemia [R73.9] INVALID FOR*03/01/2016 Priority: E More... A-fib (HCC) [I48.91] INVALID FOR* More... Hx of ascending aorta replacement [Z95.828] INVALID FOR* Priority: A More... SUMMARY INVALID FOR* Priority: Very Severe More... Atrial fibrillation, persistent (HCC) [I48.1] INVALID FOR* Priority: B More... HTN, goal below 130/80 [I10] INVALID FOR* Priority: D More... Hyperlipidemia LDL goal <130 [E78.5] INVALID FOR* Priority: E More... DISPOSITION AND FOLLOW-UP INVALID FOR* Priority: M More... Visit Notes: >> Carmen Black Fri Feb 09, 2018 2:13 PM Status: Signed Mr. Erazo is here in referral per Dr. Travis for paroxysmal atrial fib. Carmen Black LPN Prescriptions ordered this encounter Disp Refills Start End METOPROLOL TARTRATE 25 MG TABLET 60 t* 5 02/09/2018 Class: Med Update Route: ORAL Sig: Take 1 tablet by mouth twice daily. LOSARTAN 50 MG TABLET 30 t* 0 02/09/2018 Class: Med Update Route: ORAL Sig: Take 1 tablet by mouth once daily. LEVOTHYROXINE 175 MCG TABLET 30 t* 0 02/09/2018 Class: Med Update Route: ORAL Sig: Take 1 tablet by mouth once daily. Medications Discontinued During This Encounter metoprolol tartrate, short acting, (* 90 t* 1 03/01/2016 02/09/2018 Class: Print RX Sig: Take one and half (1.5) tablets three times a day Disc: Dosage adjustment amiodarone (PACERONE) 200 mg tablet 44 t* 0 03/01/2016 02/09/2018 Class: Print RX Sig: Take two tablets twice daily for one week then take one tablet daily for [address] Travis if you should continue this medication at your follow up visit. Please avoid direct sunlight while taking this medication Disc: Course of therapy completed losartan-hydrochlorothiazide (HYZAAR* 03/11/2016 02/09/2018 Class: Historical Med Route: ORAL Sig: Take 1 tablet by mouth once daily. Disc: Discontinued by another Health Care Provider levothyroxine (SYNTHROID) 200 mcg ta* 02/09/2018 Class: Historical Med Route: ORAL Sig: Take 200 mcg by mouth daily before breakfast. Disc: Dosage adjustment aspirin, enteric coated (ASPIRIN, EN* 02/09/2018 Class: Historical Med Route: ORAL Sig: Take 81 mg by mouth once daily. Disc: Course of therapy completed pyridoxine, vitamin B6, (VITAMIN B-6* 02/09/2018 Class: Historical Med Route: ORAL Sig: Take 100 mg by mouth once daily. Disc: Course of therapy completed linaclotide (LINZESS) 145 mcg cap 02/09/2018 Class: Historical Med Route: ORAL Sig: Take by mouth once daily. Disc: Course of therapy completed pyridoxine, vitamin B6, (VITAMIN B-6* 02/09/2018 Class: Historical Med Route: ORAL Sig: Take 100 mg by mouth once daily. Disc: Course of therapy completed CALCIUM CARBONATE/VITAMIN D3 (VITAMI* 02/09/2018 Class: Historical Med Route: ORAL Sig: Take by mouth once daily. Disc: Course of therapy completed Level of Service: OFFICE CONSULT LEVEL IV [84548] Disposition: Return if symptoms worsen or fail to improve. Follow-up and Disposition History Recorded Letter Text Encounter Status:Closed by RENETTA ANDERSON on 02/09/18 PROTHROMBIN TIME W/INR Collected: 02/05/2018 Status: F Source: [facility] C 1:05 PM [facility] TYPE CODE TESTS RESULT OUT OF RANGE REFERENCE UNITS LAB L300.4150 11.7-14.9 SECONDS High PROTIME 34.8 LAB L300.4200 Normal INR 3.4 Performed By: #### L300.3900 #### [facility] [address] [place], [address] PROTHROMBIN TIME W/INR Collected: 01/22/2018 Status: F Source: JULIO C 12:16 PM [facility] TYPE CODE TESTS RESULT OUT OF REFERENCE UNITS RANGE LAB L300.4150 11.7-14.9 SECONDS High PROTIME 35.2 LAB L300.4200 High alert INR 3.5 Result Comment: CRITICAL VALUE VERIFIED. CALLED TO [facility] AT [facility] 01/22/18 1418 Nery Trejo. RESULTS READ BACK BY SAME . Performed By: #### L300.3900 #### [facility] [address] [place], [address] PROTHROMBIN TIME W/INR Collected: 01/15/2018 Status: F Source: JULIO C 1:24 PM [facility] TYPE CODE TESTS RESULT OUT OF RANGE REFERENCE UNITS LAB L300.4150 11.7-14.9 SECONDS High PROTIME 31.3 LAB L300.4200 Normal INR 3.0 Performed By: #### L300.3900 #### [facility] [address] [place], [address] CARDIOLOGY VISIT Observed: 01/03/2018 Status: F Source: JULIO C REPORT 1:42 PM [facility] [address] [place] [address] OFFICE VISIT Date of Service: 12/26/17 MR#: [id number] Acct: [id number] Name: ISRAEL ERAZO Rep #: [id number] : 1945 Provider: Yohannes Silva RN Age/Sex: 72/M [place] [facility] [place]: Signed HPI HPI Details: ISRAEL ERAZO, is a 72 M who presents to the office today for Intake Intake Visit Reasons: 1 wk post CV Allergies No Known Allergies Allergy (Verified 11/13/17 14:07) Medications Levothyroxine Sodium [Synthroid] 200 mcg PO DAILY 03/09/16 [History Confirmed 12/18/17] Pravastatin [Pravachol] 40 mg PO QHS 03/09/16 [History Confirmed 12/18/17] Tamsulosin HCl [Flomax] 0.8 mg PO DAILY 03/09/16 [History Confirmed 12/18/17] warfarin 4 mg tablet 4 mg PO .COMPLEX 07/18/17 [History Confirmed 12/25/17] warfarin 6 mg tablet 6 mg PO QDAY #90 tab 08/09/17 [Rx Confirmed 12/25/17] metoprolol tartrate 25 mg tablet 25 mg PO BID #180 tab 09/26/17 [Rx Confirmed 12/18/17] losartan 100 mg-hydrochlorothiazide 25 mg tablet 1 tab PO DAILY #90 tab 10/09/17 [Rx Confirmed 12/18/17] PFSH Medical History PAF (paroxysmal atrial fibrillation) (Chronic) Aortic valve disease (Resolved) Thoracic aortic aneurysm without rupture (Resolved) Aortic aneurysm (Chronic) Syncope and collapse (Acute) Surgical History H/O: knee surgery (Resolved) History of tonsillectomy (Resolved) Hx of vasectomy (Resolved) Family History Father Hypertension Heart disease Social History Smoking Status: Former smoker alcohol intake: current alcohol intake frequency: 0-2 drinks per day Alcohol type: wine substance use type: does not use caffeine: Yes Type: coffee Number of servings: 1 what type of physical activity do you participate in: none Assessment AND Plan Orders Orders: Coding Level of Care Code Off vis,est,level 3 Coding Level of Care Code Off vis,est,level 3 01/03/18 1342 <Electronically signed by Koffi Hernandez MD> Date Koffi Hernandez MD Cosigner Signature: Date (if applicable) CC: CARDIOLOGY VISIT Observed: 01/03/2018 Status: F Source: JULIO C REPORT 1:41 PM [facility] [address] [place] [address]. [address] [place] [address] OFFICE VISIT Date of Service: 12/26/17 MR#: [id number] Acct: [id number] Name: ALYSHAELIANISRAEL Nathalie Rep #: [id number] : 1945 Provider: Yohannes Silva RN Age/Sex: 72/M [place] [facility] Status: Signed HPI HPI Details: ISRAEL ERAZO, is a 72 M who presents to the office today for Intake Intake Visit Reasons: 1 wk post CV Allergies No Known Allergies Allergy (Verified 11/13/17 14:07) Medications Levothyroxine Sodium [Synthroid] 200 mcg PO DAILY 03/09/16 [History Confirmed 12/18/17] Pravastatin [Pravachol] 40 mg PO QHS 03/09/16 [History Confirmed 12/18/17] Tamsulosin HCl [Flomax] 0.8 mg PO DAILY 03/09/16 [History Confirmed 12/18/17] warfarin 4 mg tablet 4 mg PO .COMPLEX 07/18/17 [History Confirmed 12/25/17] warfarin 6 mg tablet 6 mg PO QDAY #90 tab 08/09/17 [Rx Confirmed 12/25/17] metoprolol tartrate 25 mg tablet 25 mg PO BID #180 tab 09/26/17 [Rx Confirmed 12/18/17] losartan 100 mg-hydrochlorothiazide 25 mg tablet 1 tab PO DAILY #90 tab 10/09/17 [Rx Confirmed 12/18/17] PFSH Medical History PAF (paroxysmal atrial fibrillation) (Chronic) Aortic valve disease (Resolved) Thoracic aortic aneurysm without rupture (Resolved) Aortic aneurysm (Chronic) Syncope and collapse (Acute) Surgical History H/O: knee surgery (Resolved) History of tonsillectomy (Resolved) Hx of vasectomy (Resolved) Family History Father Hypertension Heart disease Social History Smoking Status: Former smoker alcohol intake: current alcohol intake frequency: 0-2 drinks per day Alcohol type: wine substance use type: does not use caffeine: Yes Type: coffee Number of servings: 1 what type of physical activity do you participate in: none ROS Const Const: Negative for fatigue, weakness, night sweats, excessive sweating, frequent falls, headache(s) or daytime sleepiness Eyes Eyes: Negative for loss of peripheral vision, transient loss of vision, blind spots, double vision or blurry vision ENT ENT: Negative for headache(s), dizziness, balance problems, Nosebleed/epistaxis, tongue swelling or lip swelling Cardio Chest Pain: No Palpitations: No Edema: None Muscle aches with walking: None Resp Respiratory: Negative for SOB at rest, SOB orthopnea\SOB lying down, Cough, paroxysmal nocturnal dyspnea or SOB with activity GI GI: Negative nausea, vomiting, heartburn, black,tarry stools or bright, red blood in stools : Negative for hematuria Musc Musc: Negative for balance problems, muscle aches/ myalgia, muscle weakness or joint pain Skin Skin: Negative non-healing lesions, unusual bruising or rash Neuro Neuro: Negative for weakness, frequent falls, headache(s), double vision, dizziness, lightheadedness, orthostatic symptoms, blurry vision or lack of coordination Andrews Hematologic/Lymphatic: Negative for easy bruising or easy bleeding Endo Endo: Negative for fatigue, excessive sweating, cold intolerance, heat intolerance, increased thirst/drinking or hair loss Psych Psych: Negative for anxiety or depression Allergy Allergy/Immunology: Negative for throat swelling, Negative for tongue swelling, Negative for hives, Negative for rash, Negative for lip swelling Assessment AND Plan Orders Orders: Coding Level of Care Code Off vis,est,level 3 Coding Level of Care Code Off vis,est,level 3 01/03/18 1341 <Electronically signed by Koffi Hernandez MD> Date Koffi Hernandez MD Cosigner Signature: Date (if applicable) CC: Geri Hanks MD PROTHROMBIN TIME W/INR Collected: 01/01/2018 Status: F Source: JULIO C 2:57 PM [facility] TYPE CODE TESTS RESULT OUT OF RANGE REFERENCE UNITS LAB L300.4150 11.7-14.9 SECONDS High PROTIME 21.1 LAB L300.4200 Normal INR 1.8 Performed By: #### L300.3900 #### [facility] [place], [address] OFFICE VISIT REPORT Observed: 12/26/2017 Status: F Source: JULIO C 4:43 PM [facility] [place] [address] OFFICE VISIT Date of Service: 12/26/17 MR#: [id number] Acct: [id number] Patient: ISRAEL ERAZO Rep #: [id number] : 1945 Provider: Yohannes Silva RN Age/Sex: 72/M [place] [facility] [place]: Signed Intake Intake Visit Reasons: 1 wk post CV Allergies No Known Allergies Allergy (Verified 11/13/17 14:07) Medications Levothyroxine Sodium [Synthroid] 200 mcg PO DAILY 03/09/16 [History Confirmed 12/18/17] Pravastatin [Pravachol] 40 mg PO QHS 03/09/16 [History Confirmed 12/18/17] Tamsulosin HCl [Flomax] 0.8 mg PO DAILY 03/09/16 [History Confirmed 12/18/17] warfarin 4 mg tablet 4 mg PO .COMPLEX 07/18/17 [History Confirmed 12/25/17] warfarin 6 mg tablet 6 mg PO QDAY #90 tab 08/09/17 [Rx Confirmed 12/25/17] metoprolol tartrate 25 mg tablet 25 mg PO BID #180 tab 09/26/17 [Rx Confirmed 12/18/17] losartan 100 mg-hydrochlorothiazide 25 mg tablet 1 tab PO DAILY #90 tab 10/09/17 [Rx Confirmed 12/18/17] Assessment AND Plan 1. PAF (paroxysmal atrial fibrillation) I48.0 Plan Discussed with patient regarding options of proceeding with a second cardioversion after being started on an antiarrhythmic versus proceeding with an EP consult. Patient does have a history of an ablation in the past. He would like to be referred to EP at [facility] Please refer to either Dr. Brown or Dr. Velasquez Orders Orders: Nursing Note EKG was done for 1 week postop cardioversion. EKG demonstrated atrial fibrillation/flutter with occasional ectopic ventricular beat heart rate of 87. 12/26/17 1643 <Electronically signed by Oxana MANDEL> Date Oxana MANDEL Cosigner Signature: Date (if applicable) CC: PROTHROMBIN TIME W/INR Collected: 12/25/2017 Status: F Source: JULIO C 2:42 PM [facility] TYPE CODE TESTS RESULT OUT OF RANGE REFERENCE UNITS LAB L300.4150 11.7-14.9 SECONDS High PROTIME 33.5 LAB L300.4200 Normal INR 3.3 Performed By: #### L300.3900 #### [facility] [address] [facility] [place], [address] PROTHROMBIN TIME W/INR Collected: 12/21/2017 Status: F Source: JULIO C 1:07 PM [facility] Order Comment: Comments: STANDING ORDER Comments: STANDING ORDER TYPE CODE TESTS RESULT OUT OF RANGE REFERENCE UNITS LAB L300.4150 11.7-14.9 SECONDS High PROTIME 32.7 LAB L300.4200 Normal INR 3.2 Performed By: #### L300.3900 #### [facility] [address] [facility] [place], [address] OPERATIVE REPORT Observed: 12/20/2017 Status: F Source: JULIO C 5:30 AM [facility] Medical Records Department [address] [place] [address] Operative Report 12/19/17 1635 MR#: [id number] Acct: [id number] Name: ISRAEL ERAZO Rep #: [id number] : 1945 72 From: Dino Luna MD PCP: Praneeth PERALTA,Geri Pham Status: [facility] Location: [facility] Problem List (1) Aortic aneurysm Status: Chronic (2) Atherosclerotic heart disease of [place] coronary artery without angina pectoris Status: Chronic (3) Atrial fibrillation Status: Chronic Comment: ablation in 1997, multiple cardioversions (4) Encounter for long-term current use of high risk medication Status: Chronic (5) H/O aortic valve repair Status: Chronic Comment: Aortic vavle repair AND aortic root replacement @ [facility] 02/23/16; (6) Hyperlipidemia Status: Chronic Qualifiers: Hyperlipidemia type: pure hypercholesterolemia Qualified Code(s): E78.00 - Pure hypercholesterolemia, unspecified; E78.0 - Pure hypercholesterolemia (7) Hypertension Status: Chronic Qualifiers: Hypertension type: essential hypertension Qualified Code(s): I10 - Essential (primary) hypertension (8) Hypothyroidism Status: Chronic (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 for an elective outpatient cardioversion due to underlying atrial fibrillation. The patient reports no PO intake since midnight. The patient does not have a history of obstructive sleep apnea. The patient reports a history of smoking, but denies COPD. The patient denies any recent constitutional symptoms such as fevers, chills, nausea or vomiting. The patient denies previous anesthetic complications. Patient reports being compliant with anticoagulation therapy, but did take 2 doses of Coumadin yesterday. INR today was 6.1. PHYSICAL EXAMINATION: VITAL SIGNS: Reviewed and were acceptable. GENERAL: The patient is an obese male, in no apparent distress, speaking in full sentences. HEENT: Normocephalic, atraumatic. Mucous membranes are moist and pink. Good mouth opening noted. Trachea is midline. Good neck mobility. MP IV CHEST: S1, S2 irregularly irregular. No murmurs, rubs or gallops were noted. LUNGS: Clear to auscultation bilaterally without appreciable wheezes, rales or rhonchi. ABDOMEN: Soft, nontender, nondistended. Positive bowel sounds. EXTREMITIES: There is no clubbing, cyanosis or edema. ASA Class: II DESCRIPTION OF PROCEDURE: After confirmation of informed consent, the patient's anesthesia plan was reviewed in detail. Propofol was chosen. Risks and benefits were reviewed and the patient agreed to proceed. At 1:28 PM, the patient was given 40 mg of propofol. The patient required a total of 100 mg of propofol throughout the procedure to achieve appropriate sedation. The patient achieved an appropriate level of sedation and received 2 attempt s synchronized cardioversion, at 200 J and [address] Travis at the bedside. This was successful in achieving normal sinus rhythm. The patient was monitored until 1:40 PM, at which time the patient reached their baseline mental status and function. The patient tolerated the procedure well. COMPLICATIONS: None ESTIMATED BLOOD LOSS: None RECOMMENDATIONS: Okay to recover in usual fashion. Code Visit 9xxxx: Other Procedure See Report - 12 minutes of conscious sedation - [id number] 12/20/17 0530 <Electronically signed by Dino Luna MD> Date Dino Luna MD CC: Dino Luna MD; Marky Travis MD; Geri Hanks MD Signed CARDIOLOGY VISIT Observed: 12/19/2017 Status: F Source: [place] REPORT 3:06 PM [facility] [address] [place] [address]. [address] [place] [address] OFFICE VISIT Date of Service: 11/13/17 MR#: [id number] Acct: [id number] Name: ISRAEL ERAZO Rep #: [id number] : 1945 Provider: Oxana Vazquez Age/Sex: 72/M [place] [facility] Status: Signed with Addenda ADDENDUM by Oxana Vazquez on 12/19/17 at 1225 Addendum entered and electronically signed by TEQUILA Padron 12/19/17 12:25: Patient's INR has been therapeutic for greater than 30 days. He still continues to complain of fatigue with exertional activities that he feels is related to his atrial fibrillation. I have re-examined the patient. There are no clinical changes since the date of exam. Assessment AND Plan 1. Thoracic aortic aneurysm without rupture I71.2 repair in 2016 at [facility] Plan - TEQUILA Padron Patient does continue to follow with vascular surgeon at [facility]. 2. Aortic valve disease I35.9 AVR 2015 Plan - TEQUILA Padron Patient does continue to follow with surgery at [facility]. We will continue to follow by history, exam and echocardiograms as deemed appropriate. Did discuss obtaining one in the office today however he declines. He would like to do this through the [facility]. 3. PAF (paroxysmal atrial fibrillation) I48.0 Plan - TEQUILA Padron Pt is overdue to have his INR checked. He was reminded of the importance of this. He is in atrial fibrillation today, he is unaware of this. Did discuss obtaining a Holter monitor to assess if this was persistent or paroxysmal. He would prefer not to do this. He would prefer to come in next week for an EKG. Agreeable with this. If he remains in atrial fibrillation at that time we will then decide plan of care. Orders Orders: 4. Essential hypertension I10 Plan - TEQUILA Padron Adequately controlled on current medications, will not make any adjustments. 5. Pure hypercholesterolemia E78.00; E78.0 Plan - TEQUILA Padron Managed by PCP, he will remain on current medications. Plan Detail Other Orders Orders: Additional Comments - TEQUILA Padron The above patient was discussed with Dr. Travis, he agrees with plan of care. Thank you for allowing us to participate in patient's plan of care, if you have any questions please do not hesitate to call. This note was generated using a voice recognition system and there may be incorrect words, spelling or punctuation errors that were not noted when reviewing the office note prior to saving. Follow Up 1 Week (1-2 weeks for an EKG) 1 Year ([facility]) 12/19/17 1225 <Electronically signed by Oxana MANDEL> Date Oxana Vazquez cc: Geri Hanks MD * Signed HPI HPI Details: ISRAEL ERAZO, is a 72 M who presents to the office today for a cardiovascular follow-up. 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 From a cardiac standpoint, patient is doing well. He does not have any chest discomfort/heaviness/tightness. His exercise tolerance is stable for his age. He does not have any worsening symptoms of shortness of breath. He denies any PND. He does not have any orthopnea. He does not have any symptoms of congestive heart failure. He does not have any palpitations that he is aware of. He does not have any lightheadedness or dizziness. He does not have any near-syncope or syncope. He does not have any lower extremity edema. He does not have any symptoms of claudication. He has not been to see the F surgeon in the last year. 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 Accompanied by: none Is patient in pain?: No Allergies No Known Allergies Allergy (Verified 11/13/17 14:07) Medications Levothyroxine Sodium [Synthroid] 200 mcg PO DAILY 03/09/16 [History Confirmed 11/13/17] Pravastatin [Pravachol] 40 mg PO QHS 03/09/16 [History Confirmed 11/13/17] Tamsulosin HCl [Flomax] 0.8 mg PO DAILY 03/09/16 [History Confirmed 11/13/17] warfarin 4 mg tablet 4 mg PO .COMPLEX 07/18/17 [History Confirmed 11/13/17] warfarin 6 mg tablet 6 mg PO QDAY #90 tab 08/09/17 [Rx Confirmed 11/13/17] metoprolol tartrate 25 mg tablet 25 mg PO BID #180 tab 09/26/17 [Rx Confirmed 11/13/17] losartan 100 mg-hydrochlorothiazide 25 mg tablet 1 tab PO DAILY #90 tab 10/09/17 [Rx Confirmed 11/13/17] Ejection fraction %: 60 to 64 PFSH Medical History PAF (paroxysmal atrial fibrillation) (Chronic) Aortic valve disease (Resolved) Thoracic aortic aneurysm without rupture (Resolved) Aortic aneurysm (Chronic) Syncope and collapse (Acute) Surgical History H/O: knee surgery (Resolved) History of tonsillectomy (Resolved) Hx of vasectomy (Resolved) Family History Father Hypertension Heart disease Social History Smoking Status: Former smoker alcohol intake: current alcohol intake frequency: 0-2 drinks per day Alcohol type: wine substance use type: does not use caffeine: Yes Type: coffee Number of servings: 1 what type of physical activity do you participate in: none Cardiology Exam Const Appearance: cooperative, no acute distress and well developed Orientation: alert, awake and oriented x3 Head Head: normocephalic and atraumatic Mouth: moist mucous membranes Eyes General: appearance normal, both eyes and all related structures Conjunctivae: conjunctivae normal Pupils: PERRL EOM: EOM intact bilaterally Neck Neck: normal visual inspection, no lymphadenopathy and no JVD Carotids: Negative bruit Neck Mass: Negative Neck mass Chest Chest inspection: normal inspection of the chest and symmetric chest movement Auscultation: Bilateral: Clear to Auscultation Cardio Palpation: normal PMI Rate: regular rate Rhythm: regular rhythm Heart sounds: S1 normal and S2 normal; negative rub, gallop or murmur GI GI: normal to inspection, soft, no hepatosplenomegaly and bowel sounds present; negative tender Neuro General: alert, awake, oriented x3, CN's II-XI intact bilaterally and moves all extremities Extremities Pulses: Normal: Right Posterior Tibial Pulse, Left Posterior Tibial Pulse, Right Radial Pulse, Left Radial Pulse Lower Extremity Edema: None: Bilateral Psych Psychological: normal affect Supplemental Info a cardiovascular follow-up. 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 Echocardiogram done at [facility] in February 2016 post surgery demonstrated ejection fraction of 55%. Patient was noted to be in atrial fibrillation. Aortic valve repair with peak gradient of 8 mmHg, mean gradient of 4 mmHg and a valve index of 0.65. 1. Thoracic aortic aneurysm with aneurysm repair and aortic valve repair: Patient does continue to follow with CT surgery. Assessment AND Plan 1. Thoracic aortic aneurysm without rupture I71.2 repair in 2016 at [facility] Plan - TEQUILA Padrno Patient does continue to follow with vascular surgeon at [facility]. 2. Aortic valve disease I35.9 AVR 2016 Plan - TEQUILA Padron Patient does continue to follow with surgery at [facility]. We will continue to follow by history, exam and echocardiograms as deemed appropriate. Did discuss obtaining one in the office today however he declines. He would like to do this through the [facility]. 3. PAF (paroxysmal atrial fibrillation) I48.0 Plan - TEQUILA Padron Pt is overdue to have his INR checked. He was reminded of the importance of this. He is in atrial fibrillation today, he is unaware of this. Did discuss obtaining a Holter monitor to assess if this was persistent or paroxysmal. He would prefer not to do this. He would prefer to come in next week for an EKG. Agreeable with this. If he remains in atrial fibrillation at that time we will then decide plan of care. Orders Orders: 4. Essential hypertension I10 Plan - TEQUILA Padron Adequately controlled on current medications, will not make any adjustments. 5. Pure hypercholesterolemia E78.00; E78.0 Plan - TEQUILA Padron Managed by PCP, he will remain on current medications. Plan Detail Other Orders Orders: Additional Comments - TEQUILA Padron The above patient was discussed with Dr. Travis, he agrees with plan of care. Thank you for allowing us to participate in patient's plan of care, if you have any questions please do not hesitate to call. This note was generated using a voice recognition system and there may be incorrect words, spelling or punctuation errors that were not noted when reviewing the office note prior to saving. Follow Up 1 Week (1-2 weeks for an EKG) 1 Year (PF) Coding Level of Care Code Off vis,est,level 3 Diagnoses Thoracic aortic aneurysm without rupture I71.2 Aortic valve disease I35.9 PAF (paroxysmal atrial fibrillation) I48.0 Essential hypertension I10 Hypertension type: essential hypertension Pure hypercholesterolemia E78.00; E78.0 Hyperlipidemia type: pure hypercholesterolemia Coding Level of Care Code Off vis,est,level 3 Diagnoses Thoracic aortic aneurysm without rupture I71.2 Aortic valve disease I35.9 PAF (paroxysmal atrial fibrillation) I48.0 Essential hypertension I10 Hypertension type: essential hypertension Pure hypercholesterolemia E78.00; E78.0 Hyperlipidemia type: pure hypercholesterolemia 11/21/17 0840 <Electronically signed by Oxana MANDEL> Date Oxana MANDEL 11/21/17 2155<Electronically signed by Marky Travis MD> Cosigner Signature: Date (if applicable) Marky Travis MD CC: Geri Hanks MD OPERATIVE REPORT Observed: 12/19/2017 Status: F Source: [facility] 3:05 PM [facility] Medical Records Department [address] [place] [address] Operative Report 12/19/17 1502 MR#: [id number] Acct: [id number] Name: ISRAEL ERAZO Nathalie Rep #: [id number] : 1945 72 From: Marky Travis MD PCP: Geri Hanks MD, Chi Status: REG [facility] Y Location: [facility] Problem List (1) PAF (paroxysmal atrial fibrillation) Status: Chronic (2) Thoracic aortic aneurysm without rupture Status: Resolved Comment: repair in 2015 at [facility] (3) H/O aortic valve repair Status: Chronic Comment: Aortic vavle repair AND aortic root replacement @ [facility] 02/23/16; Operative Report Date of Procedure: 12/19/17 Procedure: Synchronized biphasic DC cardioversion Indications: Atrial fibrillation Consent: Per the patient Premedications: Per Dr. Dino Luna with propofol 100 mg IV push total Procedure: Synchronized biphasic DC cardioversion: 200 J 1: Result: Atrial fibrillation Synchronized biphasic DC cardioversion: 300 J 1: Result: Sinus rhythm with premature ectopic complexes Complications: No apparent complications This note was generated with [employer] software. It may contain incorrect words, spelling, and punctuation that were not noted in checking the note before signing. 12/19/17 1505 <Electronically signed by Marky Travis MD> Date Marky Travis MD CC: Marky Travis MD; Geri Hanks MD Signed HISTORY AND PHYSICAL Observed: 12/19/2017 Status: F Source: [facility] C EXAM 1:26 PM [facility] Medical Records Department [address] [place] [address] History and Physical 12/19/17 1322 MR#: [id number] Acct: [id number] Name: ISRAEL ERAZO Nathalie Rep #: [id number] : 1945 72 From: Marky Travis MD PCP: Geri Hanks MD, Chi Status: REG [facility] Y Location: [facility] Problem List (1) PAF (paroxysmal atrial fibrillation) Status: Chronic (2) Thoracic aortic aneurysm without rupture Status: Resolved Comment: repair in 2015 at [facility] (3) H/O aortic valve repair Status: Chronic Comment: Aortic vavle repair AND aortic root replacement @ [facility] 02/23/16; History and Physical Date of Admission: 12/19/17 Date: 12/19/2017 History of present illness: Pre-synchronized DC cardioversion: Update/addendum For history of present illness, past medical history, family history, social history, review of systems, initial impression and plan please see the previously dictated outpatient history of present illness from 11/13/2017. The patient has been diagnosed with atrial fibrillation superimposed upon his history of thoracic aortic aneurysm repair and aortic valve repair. He has been on medical therapy with rate limiting therapy and anti-coagulant therapy. He is referred for further evaluation and care with synchronized biphasic DC cardioversion. The procedure and risks were discussed with the patient. He was agreeable to this approach. This procedure is scheduled to be performed at [facility] on 12/19/2017. This note was generated with [employer] dictation software. It may contain incorrect words, spelling, and punctuation that were not noted in checking the note before signing. 12/19/17 1326 <Electronically signed by Marky Travis MD> Date Marky Travis MD Cosigner Signature: Date (if applicable) CC: Marky Travis MD; Geri Hanks MD Signed PROTIME W/INR Collected: 12/19/2017 Status: F Source: [facility] 11:09 AM [facility] Order Comment: RESULTS GIVEN TO DR TRAVIS BY RICK. NO CONFIRMATION SAMPLE NEEDED PER DR TRAVIS 12/19/17@1124 TYPE CODE TESTS RESULT OUT OF RANGE REFERENCE UNITS LAB L9200.1001 11.9-14.4 SEC Test Normal PROTIME ISTAT not performed LAB L9200.2000 High > alert INR ISTAT 6.00 Result Comment: Critical Value > 3.5 Performed By: #### L9200.0000 #### [facility] Point of Care [address] [place] [address] DOWNTIME REPORT Observed: 12/14/2017 Status: F Source: [facility] 1:51 PM [facility] Medical Records Department [address] [place] [address] Downtime Report MR#: [id number] Acct: [id number] Name: ISRAEL ERAZO Rep #: [id number] : 1945 72 From: Kvng Walton PCP: Praneeth PERALTA,Geri [facility] Status: REG CLI This patient was seen during an EMR downtime November 27, 2017 - December 04, 2017. This patient may have a combination of paper and electronic documentation or all paper documentation. All documentation is viewable within the e-chart portion of [employer] for each patient visit. PROTHROMBIN TIME W/INR Collected: 12/13/2017 Status: F Source: [facility] 1:28 PM [facility] TYPE CODE TESTS RESULT OUT OF REFERENCE UNITS RANGE LAB L300.4150 11.7-14.9 SECONDS High PROTIME 35.9 LAB L300.4200 High alert INR 3.6 Result Comment: CRITICAL VALUE VERIFIED. CALLED TO [facility]IRA SIDHU(RN) 12/13/17 1416 Daisha Prescott. RESULTS READ BACK BY SAME. Performed By: #### L300.3900 #### [facility] [address] [place], [place], [address] PROTHROMBIN TIME W/INR Collected: 12/08/2017 Status: F Source: [facility] 10:24 AM [facility] TYPE CODE TESTS RESULT OUT OF REFERENCE UNITS RANGE LAB L300.4150 11.7-14.9 SECONDS High PROTIME 36.9 LAB L300.4200 High alert INR 3.7 Result Comment: CRITICAL VALUE VERIFIED. CALLED TO AYDEN AT 'S OFFICE. 12/08/17 1134 John Og. RESULTS READ BACK BY SAME. Performed By: #### L300.3900 #### [facility] [address] [place], [place], [address] BASIC METABOLIC Collected: 12/08/2017 Status: F Source: [facility] PROFILE (BMP) 10:23 AM [facility] TYPE CODE TESTS RESULT OUT OF RANGE REFERENCE UNITS LAB L501.0100 74-106 mg/dL High GLU 148 Result Comment: Fasting Glucose result greater than or equal to 126 mg/dL suggests DIABETES MELLITUS per A.D.A. criteria. Please note revised GLUCOSE reference range effective 2017. LAB L501.1000 7-18 mg/dL Normal BUN 17 LAB L501.1100 0.70-1.30 mg/dL Normal CREAT,SERUM 1.03 Result Comment: The validity of the calculated GFR AND GFRAA in patients over 70 years has not been determined. Clinical correlation is essential. LAB L501.1110 >60 mL/min Normal EST GFR 75 Result Comment: Non- GFR Calc LAB L501.1115 >60 mL/min Normal EST GFR - AA 91 Result Comment: GFR Calc LAB L501.1300 10-20 RATIO Normal BUN/CRE 16.5 LAB L501.2200 8.5-10.1 mg/dL CA Normal 8.8 LAB L501.5300 136-145 mmol/L NA Normal 140 LAB L501.5600 3.5-5.1 mmol/L K Normal 4.0 LAB L501.5900 98-107 mmol/L CL Normal 101 LAB L501.6100 21.0-32.0 mmol/L Normal CO2 29.0 LAB L501.6200 5-15 Normal GAP 10 Performed By: #### L500.2500 #### [facility] [address] [place], [place], [address] PROTHROMBIN TIME W/INR Collected: 11/29/2017 Status: F Source: [facility] 11:50 AM [facility] Order Comment: RESULT(S) PREVIOUSLY REPORTED ON MANUAL REQUISITION DURING DOWNTIME. TYPE CODE TESTS RESULT OUT OF RANGE REFERENCE UNITS LAB L300.4150 11.7-14.9 SECONDS High PROTIME 31.6 LAB L300.4200 Normal INR 3.0 Performed By: #### L300.3900 #### [facility] [address] [place], [address] PROTHROMBIN TIME W/INR Collected: 11/22/2017 Status: F Source: [facility] 8:55 AM [facility] Order Comment: Comments: STANDING Comments: STANDING TYPE CODE TESTS RESULT OUT OF RANGE REFERENCE UNITS LAB L300.4150 11.7-14.9 SECONDS High PROTIME 32.1 LAB L300.4200 Normal INR 3.1 Performed By: #### L300.3900 #### [facility] [address] [place], [address] OFFICE VISIT REPORT Observed: 11/21/2017 Status: F Source: [facility] C 9:47 PM [facility] [address] [place] [address] OFFICE VISIT Date of Service: 11/21/17 MR#: [id number] Acct: [id number] Patient: ISRAEL ERAZO Rep #: [id number] : 1945 Provider: Marky Travis MD Age/Sex: 72/M Location: [facility] Status: Signed Intake Intake Visit Reasons: 1-2 wk ekg per MMM Allergies No Known Allergies Allergy (Verified 11/13/17 14:07) Medications Levothyroxine Sodium [Synthroid] 200 mcg PO DAILY 03/09/16 [History Confirmed 11/13/17] Pravastatin [Pravachol] 40 mg PO QHS 03/09/16 [History Confirmed 11/13/17] Tamsulosin HCl [Flomax] 0.8 mg PO DAILY 03/09/16 [History Confirmed 11/13/17] warfarin 4 mg tablet 4 mg PO .COMPLEX 07/18/17 [History Confirmed 11/13/17] warfarin 6 mg tablet 6 mg PO QDAY #90 tab 08/09/17 [Rx Confirmed 11/13/17] metoprolol tartrate 25 mg tablet 25 mg PO BID #180 tab 09/26/17 [Rx Confirmed 11/13/17] losartan 100 mg-hydrochlorothiazide 25 mg tablet 1 tab PO DAILY #90 tab 10/09/17 [Rx Confirmed 11/13/17] Assessment AND Plan Orders Orders: Nursing Note Patient here today for an EKG. Patient states he feels like he is in atrial fibrillation. EKG reviewed by Oxana Vazquez. She will have Dr. Travis review EKG and see what his recommendations are. We will call patient. Patient notified of above and verbalized understanding. 11/21/172146 <Electronically signed by Marky Travis MD> Date Marky Travis MD Cosigner Signature: Date (if applicable) CC: Oxana Vazquez 12 LEAD EKG PERFORMED Observed: 11/21/2017 Status: F Source: [facility]UL[facility] C BY [facility] 1:22 PM [facility] [address] [place] [address] 12 Lead EKG performed by [facility] 11/21/17 1322 MR#: [id number] Acct: [id number] Name: ISRAEL ERAZO Rep #: [id number] : 1945 72 From: Marky Travis MD Attending Dr: Marky Travis MD Status: DEP AMB Ordering Dr: Marky Travis MD Date: 11/21/17 [place] [facility] [place] M C Admitted: [facility]/12 Lead EKG performed by [facility] ECG Report Interpretation Atrial fibrillation -Frequent pvcs -ventricular bigeminy Leftward axisNonspecific T-abnormality. ABNORMAL Electronically signed on 11/22/2017 at 12:01 by Marky Travis 11/22/17 1204 Date Marky Travis MD CC: Geri Hanks MD Date Dictated: 11/21/171321 Date Transcribed: 11/21/171321 Flue Blower: PM Signed 12 LEAD EKG PERFORMED Observed: 11/13/2017 Status: F Source: JUL[facility] C BY [facility] 2:01 PM [facility] [address] [place] [address] 12 Lead EKG performed by [facility] 11/13/17 1400 MR#: [id number] Acct: [id number] Name: ISRAEL ERAZO Rep #: [id number] : 1945 72 From: Oxana MANDEL Attending Dr: Oxana Vazquez Status: DEP AMB Ordering Dr: Oxana Vazquez Date: 11/13/17 Location: [facility] Sex: M C Admitted: [facility]/12 Lead EKG performed by [facility] ECG Report Interpretation Atrial fibrillation - frequent ectopic ventricular beats Leftward axisPoor R wave progressionNonspecific ST/T wave abnormalityABNORMAL RHYTHMElectronically signed on 11/13/2017 at 15:40 by Marky Travis 11/13/17 1545 Date Oxana MANDEL CC: Geri Hanks MD Date Dictated: 11/13/17 1400 Date Transcribed: 11/13/171399 Flue Blower: MMM Signed CBC W/DIFF, AUTOMATED Collected: 10/19/2017 Status: F Source: [facility] C 2:56 PM [facility] TYPE CODE TESTS RESULT OUT OF RANGE REFERENCE UNITS LAB L100.1000 4.4-11.0 K/mm3 High WBC 12.5 LAB L100.1200 4.6-6.2 M/mm3 Normal RBC 4.80 LAB L100.1300 13.0-16.5 g/dl Normal HGB 13.6 LAB L100.1400 40-54 % Normal HCT 42.0 LAB L100.1500 80-94 fL Normal MCV 87.5 LAB L100.1600 27.0-32.0 pg Normal MCH 28.3 LAB L100.1700 32-36 g/gl Normal MCHC 32.4 LAB L100.1810 11.6-14.6 % Normal RDW CV 13.9 LAB L100.1820 35.1-43.9 fl High RDW SD 44.2 LAB L100.1900 150-450 K/mm3 Normal PLT 255 LAB L100.2000 6.2-12.0 fl Normal MPV 10.7 LAB L100.2100 47-70 % High NEUT% 85.3 LAB L100.2200 19-41 % Low LY% 7.3 LAB L100.2300 0-10 % Normal MONO% 6.0 LAB L100.2400 0-5 % Normal EO% 0.6 LAB L100.2500 0-1 % Normal BASO% 0.2 LAB L100.2550 0.0-0.9 % Normal IM GRAN % 0.600 Result Comment: IG% - Immature Granulocytes (promyelocytes, myelocytes and metamyelocytes) > 1% indicates that a LEFT SHIFT is Present. LAB L100.2620 2.0-7.7 X10 3/uL High Absolute Neut 10.7 LAB L100.2720 0.83-4.51 X10 3/ul Normal Absolute Lymph 0.91 Performed By: #### L100.0100 #### [facility] [address] [place] [address]. [place], [place], [address] COMPREHENSIVE METABOLIC Collected: 10/19/2017 Status: F Source: [facility] 2:56 PM [facility] TYPE CODE TESTS RESULT OUT OF RANGE REFERENCE UNITS LAB L501.0100 74-106 mg/dL Normal GLU 99 Result Comment: Please note revised GLUCOSE reference range effective 2017. LAB L501.1000 7-18 mg/dL High BUN 25 LAB L501.1100 0.70-1.30 mg/dL Normal CREAT,SERUM 0.94 Result Comment: The validity of the calculated GFR AND GFRAA in patients over 70 years has not been determined. Clinical correlation is essential. LAB L501.1110 >60 mL/min Normal EST GFR 84 Result Comment: Non- GFR Calc LAB L501.1115 >60 mL/min Normal EST GFR - AA 101 Result Comment: GFR Calc LAB L501.1300 10-20 RATIO High BUN/CRE 26.6 LAB L501.1500 6.4-8.2 g/dL T Normal PROT 6.8 LAB L501.1800 3.2-5.0 g/dL Normal ALB 3.6 LAB L501.1950 2.2-4.2 g/dL Normal GLOB 3.2 LAB L501.2000 0.9-2.4 RATIO Normal A/G 1.1 LAB L501.2200 8.5-10.1 mg/dL CA Normal 8.8 LAB L501.4100 15-37 U/L Low AST 13 LAB L501.4305 45-117 U/L Normal ALK P 83 LAB L501.4405 16-61 U/L Normal ALT 29 LAB L501.4600 0.20-1.00 mg/dL High T BILI 1.10 LAB L501.5300 136-145 mmol/L NA Normal 140 LAB L501.5600 3.5-5.1 mmol/L K Normal 5.1 LAB L501.5900 98-107 mmol/L CL Normal 104 LAB L501.6100 21.0-32.0 mmol/L Normal CO2 29.0 LAB L501.6200 5-15 Normal GAP 7 Performed By: #### L500.4050, L501.9520 #### [facility] [address] [facility] [place], [place], [id number] THYROID STIM HORMONE Collected: 10/19/2017 Status: F Source: JULIO C (TSH) 2:56 PM [facility] TYPE CODE TESTS RESULT OUT OF RANGE REFERENCE UNITS LAB L501.9520 0.358-3.74 uIU/mL Low TSH 0.28 Performed By: #### L500.4050, L501.9520 #### [facility] [address] [facility] [place], [place], [address] VITAMIN D,25 HYDROXY Collected: 10/19/2017 Status: F Source: [facility] 2:56 PM [facility] TYPE CODE TESTS RESULT OUT OF REFERENCE UNITS RANGE LAB L506.1000 29.95-100.01 ng/mL Low Vitamin D 22.0 25-OH Result Comment: Vitamin D 25(OH) Status Range Deficiency <20 ng/mL (50nmol/L) Insuffciency 20 - 30 ng/mL (50 - 75 nmol/L) Sufficiency 30 - 100 ng/mL (75 - 250 nmol/L) Toxicity >100 ng/mL (>250 nmol/L) Performed By: #### L506.1000 #### [facility] [address] [place], [address] CBC W/DIFF, AUTOMATED Collected: 09/15/2017 Status: F Source: [place] 12:25 PM [facility] TYPE CODE TESTS RESULT OUT OF RANGE REFERENCE UNITS LAB L100.1000 4.4-11.0 K/mm3 Normal WBC 9.3 LAB L100.1200 4.6-6.2 M/mm3 Normal RBC 4.86 LAB L100.1300 13.0-16.5 g/dl Normal HGB 13.6 LAB L100.1400 40-54 % Normal HCT 42.8 LAB L100.1500 80-94 fL Normal MCV 88.1 LAB L100.1600 27.0-32.0 pg Normal MCH 28.0 LAB L100.1700 32-36 g/gl Low MCHC 31.8 LAB L100.1810 11.6-14.6 % Normal RDW CV 12.7 LAB L100.1820 35.1-43.9 fl Normal RDW SD 40.9 LAB L100.1900 150-450 K/mm3 Normal PLT 267 LAB L100.2000 6.2-12.0 fl Normal MPV 10.8 LAB L100.2100 47-70 % High NEUT% 79.2 LAB L100.2200 19-41 % Low LY% 10.9 LAB L100.2300 0-10 % Normal MONO% 6.4 LAB L100.2400 0-5 % Normal EO% 3.0 LAB L100.2500 0-1 % Normal BASO% 0.2 LAB L100.2550 0.0-0.9 % Normal IM GRAN % 0.300 Result Comment: IG% - Immature Granulocytes (promyelocytes, myelocytes and metamyelocytes) > 1% indicates that a LEFT SHIFT is Present. LAB L100.2620 2.0-7.7 X10 3/uL Normal Absolute Neut 7.4 LAB L100.2720 0.83-4.51 X10 3/ul Normal Absolute Lymph 1.02 Performed By: #### L100.0100, L101.9900 #### [facility] [address] [place], [address] ERYTHROCYTE SED RATE Collected: 09/15/2017 Status: F Source: [place] 12:25 PM [facility] TYPE CODE TESTS RESULT OUT OF RANGE REFERENCE UNITS LAB L102.0000 0-20 mm/hr Normal SED RATE 18 Performed By: #### L100.0100, L101.9900 #### [facility] [address] [place], [address] BASIC METABOLIC Collected: 09/15/2017 Status: F Source: [place] PROFILE (BMP) 12:25 PM [facility] TYPE CODE TESTS RESULT OUT OF RANGE REFERENCE UNITS LAB L501.0100 74-106 mg/dL High GLU 127 Result Comment: Fasting Glucose result greater than or equal to 126 mg/dL suggests DIABETES MELLITUS per A.D.A. criteria. Please note revised GLUCOSE reference range effective 2017. LAB L501.1000 7-18 mg/dL High BUN 22 LAB L501.1100 0.70-1.30 mg/dL Normal CREAT,SERUM 1.02 Result Comment: The validity of the calculated GFR AND GFRAA in patients over 70 years has not been determined. Clinical correlation is essential. LAB L501.1110 >60 mL/min Normal EST GFR 76 Result Comment: Non- GFR Calc LAB L501.1115 >60 mL/min Normal EST GFR - AA 92 Result Comment: GFR Calc LAB L501.1300 10-20 RATIO High BUN/CRE 21.6 LAB L501.2200 8.5-10.1 mg/dL CA Normal 9.0 LAB L501.5300 136-145 mmol/L NA Normal 138 LAB L501.5600 3.5-5.1 mmol/L K Normal 4.5 LAB L501.5900 98-107 mmol/L CL Normal 103 LAB L501.6100 21.0-32.0 mmol/L Normal CO2 31.0 LAB L501.6200 5-15 Low GAP 4 Performed By: #### L500.2500, L501.6710 #### [facility] [address] [place], [address] CRP Collected: 09/15/2017 Status: F Source: [place] 12:25 PM [facility] [facility] TYPE CODE TESTS RESULT OUT OF RANGE REFERENCE UNITS LAB L501.6710 0.0-3.0 mg/L High 64.10 C-REACTIVE PROT Result Comment: C-Reactive Protein (CRP) provides useful information for the diagnosis, therapy and monitoring of inflammatory processes and associated diseases. For the evaluation of Relative Risk for Cardiovascular Disease, a High Sensitivity CRP (HSCRP) should be ordered. Performed By: #### L500.2500, L501.6710 #### [facility] [address] [place], [address] SHOULDER MIN 2 VIEWS Observed: 09/15/2017 Status: F Source: NOGALES 9:53 AM [facility] RE[facility]IT[facility] Imaging Services [address] [place] [address] Shoulder min 2 Views MR#: [id number] Acct: [id number] Name: ISRAEL ERAZO Rep #: [id number] : 1945 M 71 From: Forrest Mccall DO PCP: Geri Hanks MD, Chi Status: REG CLI Study: Shoulder min 2 Views Date of Exam: 09/15/17 Exam# [id number] Ordering Dr: Geri Hanks MD STUDY: X-RAY - LEFT SHOULDER REASON FOR EXAM: Male, 71 years old. Pain TECHNIQUE: 4 view(s) of the shoulder. COMPARISON: None. FINDINGS: Normal glenohumeral articulation. Mild degenerative hypertrophy at the acromioclavicular joint. Inferior hooking of the acromion can predispose to impingement. Normal humeral head and visualized proximal humerus. Soft tissue calcification lateral to the humerus likely related to calcific tendinopathy. Normal visualized pulmonary apex. RAD/Shoulder min 2 Views IMPRESSION: Degenerative changes of the shoulder. Calcific tendinopathy. Electronically Signed: Forrest Mccall DO at 8:44 EDT Tel [phone], Service support , CC: Geri Hanks MD Flue Blower: Signed SHOULDER MIN 2 VIEWS Observed: 09/15/2017 Status: F Source: NOGALES 9:53 AM [facility] Imaging Services [address] [place] [address] Shoulder min 2 Views MR#: [id number] Acct: [id number] Name: ISRAEL ERAZO Rep #: [id number] : 1945 M 71 From: Forrest Mccall DO PCP: Geri Hanks MD, Chi Status: REG CLI Study: Shoulder min 2 Views Date of Exam: 09/15/17 Exam# [id number] Ordering Dr: Geri Hanks MD STUDY: X-RAY - RIGHT SHOULDER REASON FOR EXAM: Male, 71 years old. Pain TECHNIQUE: 4 view(s) of the shoulder. COMPARISON: None. FINDINGS: Normal glenohumeral articulation. Degenerative hypertrophy at the acromioclavicular joint. Inferior hooking of the acromion can predispose to impingement. Normal humeral head and visualized proximal humerus. The soft tissue structures are unremarkable. Normal visualized pulmonary apex. RAD/Shoulder min 2 Views IMPRESSION: Degenerative changes of the shoulder. Electronically Signed: Forrest Mccall DO at 9:00 EDT Tel [phone], Service support , CC: Geri Hanks MD Flue Blower: Signed HIPS B/L MIN 2 Observed: 09/15/2017 Status: F Source: JULIO C VIEWS W/ PELVIS 9:53 AM [facility] Imaging Services [address] [place] [address] Hips B/L min 2 views w/ Pelvis MR#: [id number] Acct: [id number] Name: ISRAEL ERAZO Rep #: [id number] : 1945 M 71 From: Eliot Angulo PCP: Geri Hanks MD, Chi Status: REG CLI Study: Hips B/L min 2 views w/ Pelvis Date of Exam: 09/15/17 Exam# [id number] Ordering Dr: Geri Hanks MD STUDY: X-RAY - PELVIS AND BILATERAL HIPS REASON FOR EXAM: Male, 71 years old. Pain TECHNIQUE: Radiological exam, hip, bilateral, with pelvis when performed; 2 views COMPARISON: None. FINDINGS: There is a non-specific bowel gas pattern. Normal visualized soft tissue structures. Normal bilateral iliac wings, sacroiliac joints and visualized sacrum. Normal bilateral superior and inferior pubic rami. Normal pubic symphysis. Normal bilateral ischial tuberosities. Normal visualized right femoral head. Normal right acetabulum. Normal right hip joint. Normal visualized left femoral head. Normal left acetabulum. Normal left hip joint. RAD/Hips B/L min 2 views w/ Pelvis IMPRESSION: Normal x-ray examination of the pelvis and bilateral hips. Electronically Signed: Eliot Angulo DO at 9:43 EDT , Service support , CC: Geri Hanks MD Flue Blower: Signed OPERATIVE REPORT Observed: 07/28/2017 Status: F Source: JULIO C 12:41 PM [facility] Medical Records Department [address] [place] [address] Operative Report 07/28/17 1239 MR#: [id number] Acct: [id number] Name: ISRAEL ERAZO Rep #: [id number] : 1945 71 From: Moises Walton MD PCP: Praneeth PERALTA,Geri Pham Status: REG SDC Y Location: [place] [address] Operative Report Date of Procedure: 07/28/17 Preoperative diagnosis: Left Carpal tunnel syndrome Postoperative diagnosis: Same Title of operation: Open Left carpal tunnel release Surgeon: Dr. Moises Walton Anesthesia: Local Indications for surgery: Patient seen and evaluated in the office. Diagnosed with carpal tunnel syndrome. They have failed adequate nonoperative treatment. Due to persistent symptoms they wish to proceed with carpal tunnel release surgery appropriate informed consent was obtained and signed. Details of procedure: Patient was taken to the OR and transferred to the OR table. Appropriate timeouts were performed. Well-padded tourniquet was applied to the operative upper extremity proximally. Area was prepped with alcohol. Local anesthetic was administered using 9 cc of 2% lidocaine plain. Operative extremity was prepped padded and draped in usual orthopedic sterile fashion for the procedure. Limb was exsanguinated. Tourniquet applied to 250 mmHg. Three centimeter incision was made over the palm. Carefully taken through skin, subcutaneous tissue, down onto the transverse carpal ligament. Transverse carpal ligament was opened at the midportion with a knife. Elevator was carefully placed underneath the transverse carpal ligament in a distal direction. I dissected down onto that with a knife. Elevator was then placed in a proximal direction, again directly underneath the transverse carpal ligament. I dissected down on that with a knife. Scissors were used at the proximal extent placed under direct visualization. This fully released the proximal extent of the transverse carpal ligament. At this point my small finger was placed proximally and distally to assure complete release of the transverse carpal ligament over the median nerve. FPL tendon was noted. No significant abnormalities were noted at the region of the carpal canal. Tourniquet was let down at 6 minutes. Bleeding controlled with the Bovie. Wound thoroughly irrigated. No undue bleeding noted. Skin edges were reapproximated with a 5-0 nylon. Sterile bandage was applied. Patient was awoken from the anesthetic. Transferred to the room bed. To recovery room in satisfactory condition. Patient will be discharged home. Ice and elevation recommended. Pain medication as needed. Follow-up in the office next week as scheduled. This note was generated with [employer] dictation software. It may contain incorrect words, spelling, and punctuation that were not noted in checking the note before signing. 07/28/17 1241 <Electronically signed by Moises Walton MD> Date Moises Walton MD CC: Moises aWlton MD; Geri Hanks MD Signed PROTHROMBIN TIME W/INR Collected: 07/18/2017 Status: F Source: NOGALES 1:03 PM [facility] TYPE CODE TESTS RESULT OUT OF RANGE REFERENCE UNITS LAB L300.4150 11.7-14.9 SECONDS High PROTIME 19.8 LAB L300.4200 Normal INR 1.8 Performed By: #### L300.3900 #### [facility] [address] [place], [address] ALLERGIES ALLERGIES DATE TYPE / CODE NAME / CODE REACTION SEVERITY SOURCE 03/19/2018 Drug No Known Unknown [facility] Allergy/416 Allergies/W09024 [facility] 208371(SNOM 0388(RXNORM) Repository ED CT) Drug NO KNOWN [facility] Class/56191 ALLERGIES Other [place] 1003(SNOMED Repository CT) NG/59378777 NO KNOWN [facility] 6(SNOMED ALLERGIES Health [facility] CT) Repository ENCOUNTERS ENCOUNTERS ADMIT/DISCHARGE ACCOUNT NUMBER ADMITTING ENCOUNTER LOCATION SOURCE CLASS 07/03/2018 [id number] [facility] ding:LAB Repository 06/05/2018 [id number] [facility] ding:POLAB3 Repository 05/31/2018/05/31/[id number] ding:LAB Repository 04/26/2018 [id number] [facility] ding:POLAB3 Repository 03/19/2018/03/19/20 [id number] Ambulatory BMSBuilding: Julio C 18 BMS.[facility] Repository 03/19/2018/03/19/20 [id number] Ambulatory Julio C Julio C 18 [facility] ding:LAB Repository 03/19/2018 [id number] Ambulatory BMSBuilding: [place] BMS.[facility] Repository 03/06/2018 [id number] Ambulatory [facility] ding:POLAB3 Repository 02/21/2018/02/22/20 [id number] Ambulatory [address] ding:LAB Repository 02/09/2018/02/10/20 [id number] Ambulatory [address] Repository 02/09/2018/02/10/20 [id number] Ambulatory [address] MEDICAL Repository CENTERBuildi ng:AGCARDPHR A 01/22/2018/01/23/20 [id number] Ambulatory Julio [address] ding:LAB Repository 12/26/2017/12/27/19 [id number] Ambulatory BMSBuilding: [place] 18 BMS.[facility] Repository 12/21/2017/12/22/19 [id number] Ambulatory [place] Julio [address] ding:LAB Repository 12/19/2017 [id number] Ambulatory BMSBuilding: Julio C [facility] Repository 12/19/2017 [id number] Ambulatory BMSBuilding: [facility] Repository 12/19/2017 [id number] Ambulatory BMSBuilding: Julio C BMS.CF.[facility] Repository 12/19/2017 [id number] Ambulatory [facility] ding:CLSP Repository 12/18/2017 [id number] Ambulatory [facility] ding:LAB.FUT Repository URE 11/29/2017 [id number] Ambulatory [facility] ding:LAB Repository 11/22/2017 [id number] Ambulatory [facility] ding:LAB Repository 11/21/2017/11/22/19 [id number] Ambulatory BMSBuilding: Julio C 18 BMS.[facility] Repository 11/13/2017/11/14/19 [id number] Ambulatory BMSBuilding: [place] 18 BMS.[facility] Repository 11/07/[id number] [facility] Repository 10/30/2017 [id number] Ambulatory BMSBuilding: Julio C BMS.[facility] Repository 10/19/2017 [id number] Ambulatory [facility] ding:POLAB3 Repository 09/15/2017 [id number] Ambulatory [facility] ding:RAD Repository 07/28/2017/07/28/19 [id number] Ambulatory [address] ding:SDCRoom Repository : AC12 07/18/2017/07/18/19 [id number] Ambulatory [address] ding:LAB Repository PAYERS PAYERS ENCOUNTER GUARANTOR PAYER SUBSCRIBER SOURCE 07/03/2018 ISRAEL Bunch [id number] [facility] Insurance:[place] LOVERDOB: [place] SECURE CARE [id number] [id number]: (457) MEDICAREPolicy Repository [phone] () Number: [id number] Date: [place], [place] [address]LP: 07/03/2018 Secondary NOT GIVENUNK [place] Insurance:SELF PAY [facility] Number: Effective Repository Date:2018-06-25 06/05/2018 ISRAEL Bunch [id number] [facility] Insurance:[place] LOVERDOB: [facility] CARE [id number] Hospital [address]Ktm: (330) [facility] Repository [phone] () Number: [id number] Date: [place], [place] [address]TT: 06/05/2018 Secondary NOT GIVENUNK [place] Insurance:SELF PAY [facility] Number: Effective Repository Date:2018-05-16 05/31/2018 ISRAEL Zelaya [place] [id number] SHERJESUS Insurance:[place]: [place] [id number] Hospital [address]Ais: (330) MEDICAREPolicy Repository [phone] () Number: [id number] Date: [place], [place] [address]EU: 05/31/2018 Secondary NOT GIVENUNK Julio C Insurance:SELF PAY [facility] Number: Effective Repository Date:2018-03-28 04/26/2018 ISRAEL Nathalie Primary ISRAEL Zelaya [place] [id number] [place] Insurance:[place] [id number] Hospital [address]Djs: (158) MEDICAREPolicy Repository [phone] () Number: [id number] Date: [place], [place] [address]SR: 04/26/2018 Secondary NOT GIVENUNK [place] Insurance:SELF PAY [facility] Number: Effective Repository Date:2018-04-26 03/19/2018 ISRAEL Nathalie Primary ISRAEL Zelaya Julio C [id number] SH[place]JES[place] Insurance:[place] [id number] Hospital [address]Xcr: (330) MEDICAREPolicy Repository [phone] () Number: [id number] Date: [place], [place] [address]UB: 03/19/2018 Secondary NOT GIVENUNK Julio C Insurance:SELF PAY [facility] Number: Effective Repository Date:2018-03-19 03/19/2018 ISRAEL Nathalie Primary ISRAEL Bunch [id number] [place]JES[place] Insurance:[place]: [place] [id number] Hospital [address]Irq: (330) MEDICAREPolicy Repository [phone] () Number: [id number] Date: [place], [place] [address]OG: 03/19/2018 Secondary NOT GIVENUNK [place] Insurance:SELF PAY [facility] Number: Effective Repository Date:2018-02-27 03/19/2018 ISRAEL Zelaya Primary ISRAELLEE Bunch [id number] [place] Insurance:[place]OB: [place] [id number] Hospital [address]Hur: (415) MEDICAREPolicy Repository [phone] () Number: [id number] Date: [place], [place] [address]YL: 03/19/2018 Secondary NOT GIVENUNK Julio C Insurance:SELF PAY [facility] Number: Effective Repository Date:2018-03-19 03/06/2018 ISRAEL Zelaya Primary ISRAEL Bunch [id number] [facility] Insurance:[place] LOVERDOB: [facility] CARE [id number] Hospital [address]Fgh: (387) MEDICAREPolicy Repository [phone] () Number: [id number] Date: [place], [place] [address]DY: 03/06/2018 Secondary NOT GIVENUNK [place] Insurance:SELF PAY [facility] Number: Effective Repository Date:2018-03-06 02/21/2018 ISRAEL Zelaya Primary ISRAEL R Julio C [id number] [place] Insurance:[place] LOVERDOB: [facility] CARE [id number], [place] [address]Ijm: MEDICAREPolicy Repository Number: (HP) [id number] Date: [place], [place] [address]QY: 02/21/2018 Secondary NOT GIVENUNK [place] Insurance:SELF PAY [facility] Number: Effective Repository Date:2018-01-25 02/09/2018 ISRAEL Zelaya Primary Insurance:THP ISRAEL Chacko [facility] LOVERDOB: [facility]ORTHER[facility]OULD HOSPITALRDOB: [facility] Number: [id number] Repository [facility] [id number], [place] Date: [address]Loq: () 01/22/2018 ISRAEL Zelaya Primary ISRAEL Bunch [id number] [facility] Insurance:[place] LOVERDOB: Community [facility] [id number], [place] [address]Dys: MEDICAREHoly [facility]eemer [facility] Systemy Repository Number: () [id number] Date: [place], [place] [address]UK: 01/22/2018 Secondary NOT GIVENUNK Julio C Insurance:SELF PAY [facility] Number: Effective Repository Date:2017-12-22 12/26/2017 ISRAEL Zelaya Primary ISRAEL Nathalie Bunch [id number] [facility] Insurance:[place] LOVERDOB: [facility] [id number], [place] [address]Euz: MEDICAREPolicy Repository Number: () [id number] Date: [place], [place] [address]XL: 12/26/2017 Secondary NOT GIVENUNK [place] Insurance:SELF PAY [facility] Number: Effective Repository Date:2017-12-26 12/21/2017 ISRAEL Zelaya Primary ISRAEL R [place] [id number] [facility] Insurance:[place] LOVERDOB: [facility] [id number] Hospital [address]Fek: (756) MEDICAREB[facility] Medical Centericy Repository [phone] () Number: [id number] Date: [place], [place] [address]PS: 12/21/2017 Secondary NOT GIVENUNK [place] Insurance:SELF PAY Community [facility] Number: Effective Repository Date:2017-07-28 12/19/2017 ISRAEL Zelaya Primary ISRAEL Zelaya [place] [id number] SHER Insurance:[place] LOVERDOB: [facility] [id number], [place] [address]Znz: MEDICAREPolicy Repository Number: () [id number] Date: [place], [place] [address]MC: 12/19/2017 Secondary NOT GIVENUNK [place] Insurance:SELF PAY [facility] Number: Effective Repository Date:2017-12-19 12/19/2017 ISRAEL R Primary ISRAEL Zelaya Julio C [id number] [place] Insurance:[place] LOVERDOB: [facility] [id number], [place] [address]Bfg: MEDICAREPolicy Repository Number: () [id number] Date: [place], [place] [address]RA: 12/19/2017 Secondary NOT GIVENUNK Julio C Insurance:SELF PAY [facility] Number: Effective Repository Date:2017-12-19 12/19/2017 ISRAEL Nathalie PLUMMERLEE Zelaya Julio C [id number] [facility] Insurance:[place] LOVERDOB: [facility] [id number] Hospital [address]Zes: (330) MEDICAREPolicy Repository [phone] () Number: [id number] Date: [place], [place] [address]XO: 12/19/2017 Secondary NOT GIVENUNK Juloi C Insurance:SELF PAY [facility] Number: Effective Repository Date:2017-12-19 12/19/2017 ISRAEL Nathalie Primary ISRAEL R Julio C [id number] [place] Insurance:[place] LOVERDOB: [facility] [id number] [place], [place] [address]Tel: (330) MEDICAREPolicy Repository [phone] () Number: [id number] Date: [place], [place] [address]OA: 12/19/2017 Secondary NOT GIVENUNK Julio C Insurance:SELF PAY [facility] Number: Effective Repository Date:2017-12-04 12/18/2017 ISRAEL Zelaya Primary ISRAEL Bunch [id number] [place] Insurance:[place]: [place] [id number] Hospital [address]Iro: (330) MEDICAREPolicy Repository [phone] () Number: [id number] Date: [place], [place] [address]QL: 12/18/2017 Secondary NOT GIVENUNK Julio C Insurance:SELF PAY [facility] Number: Effective Repository Date:2017-10-26 11/29/2017 ISRAEL R Primary ISRAEL Bunch [id number] [place] Insurance:[place]: [place] [id number] Hospital [address]Xbn: (330) MEDICAREPolicy Repository [phone] () Number: [id number] Date: [place], [place] [address]AR: 11/29/2017 Secondary NOT GIVENUNK Julio C Insurance:SELF PAY [facility] Number: Effective Repository Date:2017-11-29 11/22/2017 ISRAEL R Primary ISRAEL Bunch [id number] [place] Insurance:[place]: [place] [id number] Hospital [address]Cqq: (330) MEDICAREPolicy Repository [phone] () Number: [id number] Date: [place], [place] [address]UB: 11/22/2017 Secondary NOT GIVENUNK [place] Insurance:SELF PAY Community [facility] Number: Effective Repository Date:2017-11-22 11/21/2017 ISRAEL Zelaya Primary ISRAEL Zelaya [place] [id number] [place] Insurance:[place] LOVERDOB: [facility] [id number], [place] [address]Pku: MEDICAREPolicy Repository Number: () [id number] Date: [place], [place] [address]UD: 11/21/2017 Secondary NOT GIVENUNK Julio C Insurance:SELF PAY [facility] Number: Effective Repository Date:2017-11-21 11/13/2017 ISRAEL R Sherice ISRAEL Zelaya Julio C [id number] [place] Insurance:[place] LOVERDOB: [facility] [id number], [place] [address]Eju: MEDICAREPolicy Repository Number: () [id number] Date: [place], [place] [address]KU: 11/13/2017 Secondary NOT GIVENUNK Juli Oc Insurance:SELF PAY [facility] Number: Effective Repository Date:2017-11-13 11/07/2017 ISRAEL Nathalie PLUMMERLEE Zelaya Julio C [id number] [facility] Insurance:[place] LOVERDOB: [facility] [id number] Hospital [address]Ycd: (235) MEDICAREPolicy Repository [phone] () Number: [id number] Date: [place], [place] [address]VL: 11/07/2017 Secondary NOT GIVENUNK [place] Insurance:SELF PAY [facility] Number: Effective Repository Date:2017-11-07 10/30/2017 ISRAEL Nathalie PLUMMERLEE Zelaya Julio C [id number] [place] Insurance:[place] LOVERDOB: [facility] [id number] Hospital [address]Zxe: (330) MEDICAREPolicy Repository [phone] () Number: [id number] Date: [place], [place] [address]MJ: 10/30/2017 Secondary NOT GIVENUNK [place] Insurance:SELF PAY [facility] Number: Effective Repository Date:2017-10-30 10/19/2017 Israel R Primary Israel Bunch [id number] [place] Insurance:[place]: [place] [id number] Hospital [address]Pkt: (330) MEDICAREPolicy Repository [phone] () Number: [id number] Date: [place], [place] [address]WN: 10/19/2017 Secondary NOT GIVENUNK Julio C Insurance:SELF PAY [facility] Number: Effective Repository Date:2017-10-19 09/15/2017 Israel Zelaya Primary Israel Bunch [id number] [place] Insurance:[place]: [place] [id number] Hospital [address]Utj: (330) MEDICAREPolicy Repository [phone] () Number: [id number] Date: [place], [place] [address]YH: 09/15/2017 Secondary NOT GIVENUNK [place] Insurance:SELF PAY Community [facility] Number: Effective Repository Date:2017-09-15 07/28/2017 Israel Nathalie Primary Israel Bunch [id number] [place] Insurance:[place]: [place] [id number] Hospital [address]Ctu: (330) MEDICAREPolicy Repository [phone] () Number: [id number] Date: [place], [place] [address]CA: 07/28/2017 Secondary NOT GIVENUNK Julio C Insurance:SELF PAY Community [facility] Number: Effective Repository Date:2017-07-14 07/18/2017 Israel Zelaya Primary Israel Bunch [id number] [facility] Insurance:[place] LoverDOB: [facility] [id number] Hospital [address]Olx: (882) [facility] Repository [phone] () Number: [id number] Date: [place], [place] [address]KO: 07/18/2017 Secondary NOT GIVENFIDEL Bunch Insurance:SELF PAY [facility] Number: Effective Repository Date:2017-05-28
== END ==
PROVIDERS: Family Provider Family Medicine Geriatric Medicine; PCP Family Medicine Geriatric Medicine; Visit Provider Family Medicine Geriatric Medicine
DX: E03.9 Hypothyroidism, unspecified (principal)
CPT/HCPCS: 36415; 84443

== ENCOUNTER 2018-07-03 12:30 | Outpatient (RCR) | payer MEDICARE, SELFPAY ==
[2018-05-16 14:32] VITALS: BMI 32.0
[2018-07-03 13:37] LABS: International Normalized Ratio 1.4
== END 2018-07-03 13:30 | disposition home or self-care (01) ==
LOC: LAB 12:30
PROVIDERS: Family Provider Family Medicine Geriatric Medicine; PCP Family Medicine Geriatric Medicine; Referring Provider Internal Medicine Cardiovascular Disease; Visit Provider Internal Medicine Cardiovascular Disease
DX: I48.0 Paroxysmal atrial fibrillation (principal); Z79.01 Long term (current) use of anticoagulants
CPT/HCPCS: 36415; 85610

== ENCOUNTER → 2018-08-08 16:56 | Outpatient (CLI) | payer MEDICARE, SELFPAY ==
[2018-05-16 14:32] VITALS: BMI 32.0
--- NOTE | 2018-08-08 17:05 | RAD_ITS ---
STUDY: X-RAY CHEST REASON FOR EXAM: Male, 72 years old. Shortness of breath. TECHNIQUE: PA and lateral views of the chest. COMPARISON: March 09, 2016. FINDINGS: Underlying bandage. There is patchy infiltrate in the medial right lung base. The lungs are otherwise clear. There is no demonstrated pleural abnormality. Sternal cerclage wires and vascular clips are present from a prior sternotomy and coronary artery bypass graft procedure (CABG). The heart is top normal in size. Normal mediastinum and freya. Normal visualized pulmonary arteries. There is atherosclerotic calcification of the aortic arch with tortuosity. There are diffuse degenerative changes of the visualized thoracic spine. There is degenerative osteoarthritis of the bilateral shoulders. There is no demonstrated abnormality of the visualized soft tissue structures of the upper abdomen. RAD/Chest PA and Lateral IMPRESSION: Question right middle lobe infiltrate. No other major interval change. Electronically Signed: Damion Farfan DO at 21:10 EST Tel [phone], Service support ,
== END ==
PROVIDERS: Family Provider Family Medicine Geriatric Medicine; PCP Family Medicine Geriatric Medicine; Referring Provider Family Medicine Geriatric Medicine; Visit Provider Family Medicine Geriatric Medicine
DX: R06.02 Shortness of breath (principal); R53.83 Other fatigue
CPT/HCPCS: 71046; 87633

== ENCOUNTER 2018-08-20 13:18 | Outpatient (RCR) | payer MEDICARE, SELFPAY ==
[2018-05-16 14:32] VITALS: BMI 32.0
[2018-08-20 15:29] LABS: International Normalized Ratio 1.5; Prothrombin Time (Protime)PT. 18.2 SECONDS (11.7-14.9)
== END 2018-08-23 14:06 | disposition home or self-care (01) ==
LOC: LAB 13:18
PROVIDERS: Family Provider Family Medicine Geriatric Medicine; PCP Family Medicine Geriatric Medicine; Referring Provider Internal Medicine Cardiovascular Disease; Visit Provider Internal Medicine Cardiovascular Disease
DX: I48.0 Paroxysmal atrial fibrillation (principal); Z79.01 Long term (current) use of anticoagulants
CPT/HCPCS: 36415; 85610

== ENCOUNTER → 2018-09-05 13:46 | Outpatient (CLI) | payer MEDICARE, SELFPAY ==
[2018-05-16 14:32] VITALS: BMI 32.0
[2018-09-05 17:17] LABS: Absolute Neutrophil Count 8.6 X10^3/uL (2.0-7.7); Basophil# 0.03 X10^3/uL; Basophil% 0.3 % (0-1); Eosinophil# 0.09 X10^3/uL; Eosinophils% 0.9 % (0-5); Hematocrit 44.3 % (40-54); Lymphocyte % 9.6 % (19-41); Mean Corp Hgb Conc 31.6 g/gl (32-36); Mean Corpuscular Hgb 28.7 pg (27.0-32.0); Mean Platelet Vol. 10.9 fl (6.2-12.0); Monocyte# 0.65 X10^3/uL; Monocyte% 6.2 % (0-10); Neutrophil # 8.58 X10^3/uL (2.7-7.7); Neutrophil % 82.3 % (47-70); Platelet Count 227 K/mm3 (150-450); RBC Distribution Width CV 14.4 % (11.6-14.6); RBC Distribution Width SD 47.9 fl (35.1-43.9); Red Blood Count 4.87 M/mm3 (4.6-6.2); White Blood Count 10.4 K/mm3 (4.4-11.0)
[2018-09-05 17:18] LABS: POSITIVE COUNT NO; POSITIVE DIFFERENTIAL NO; POSITIVE MORPHOLOGY NO
[2018-09-05 17:42] LABS: Vitamin D,25 Hydroxy 25.7 ng/mL (29.95-100.01)
[2018-09-05 17:43] LABS: AST(SGOT) 11 U/L (15-37); Alanine Aminotransfer ALT/SGPT 23 U/L (16-61); Albumin, Serum 3.6 g/dL (3.2-5.0); Alkaline Phosphatase 68 U/L (45-117); Anion Gap 9 (5-15); BUN 27 mg/dL (7-18); BUN/Creat Ratio 21.6 RATIO (10-20); Calcium,Total 8.8 mg/dL (8.5-10.1); Chloride 102 mmol/L (98-107); Creatinine, Serum 1.25 mg/dL (0.70-1.30); EST Glomerular Filtration Rate 60 mL/min (>60); Est Glom Filt Rate - Afr Amer 73 mL/min (>60); Globulin 3.5 g/dL (2.2-4.2); Glucose 194 mg/dL (74-106); Potassium 3.9 mmol/L (3.5-5.1); Protein, Total 7.1 g/dL (6.4-8.2); Sodium Level 139 mmol/L (136-145); Thyroid Stim Hormone (TSH) 1.51 uIU/mL (0.358-3.74)
== END ==
PROVIDERS: Family Provider Family Medicine Geriatric Medicine; PCP Family Medicine Geriatric Medicine; Visit Provider Family Medicine Geriatric Medicine
DX: E23.6 Other disorders of pituitary gland (principal); E55.9 Vitamin D deficiency, unspecified; I10 Essential (primary) hypertension
CPT/HCPCS: 36415; 80053; 82306; 84403; 84443; 85025

== ENCOUNTER 2018-09-11 12:10 | Outpatient (RCR) | payer MEDICARE, SELFPAY ==
[2018-05-16 14:32] VITALS: BMI 32.0
[2018-08-28 13:53] LABS: International Normalized Ratio 2.7; Prothrombin Time (Protime)PT. 28.9 SECONDS (11.7-14.9)
[2018-09-11 12:59] LABS: International Normalized Ratio 3.1; Prothrombin Time (Protime)PT. 32.4 SECONDS (11.7-14.9)
== END 2018-09-11 13:00 | disposition home or self-care (01) ==
LOC: LAB 12:10
PROVIDERS: Family Provider Family Medicine Geriatric Medicine; PCP Family Medicine Geriatric Medicine; Referring Provider Internal Medicine Cardiovascular Disease; Visit Provider Internal Medicine Cardiovascular Disease
DX: I48.0 Paroxysmal atrial fibrillation (principal); Z79.01 Long term (current) use of anticoagulants
CPT/HCPCS: 36415; 85610

== ENCOUNTER 2018-09-22 10:46 | Emergency (ER) | payer MEDICARE, SELFPAY ==
[2018-05-16 14:32] VITALS: BMI 32.0
[2018-09-22 10:48] VITALS: BP 156/95; PULSE 82; RESP 16; TEMP 36.7; O2SAT 93; BMI 31.4
[2018-09-22 11:11] VITALS: O2SAT 94
--- NOTE | 2018-09-22 11:12 | CT_ITS ---
STUDY: CT ABDOMEN AND PELVIS WITH CONTRAST REASON FOR EXAM: Male, 72 years old. Abdominal bloating for one week with history of prostate cancer and radiation therapy RADIATION DOSAGE (If Supplied By Facility): CTDIvol = ( 23.31 ) mGy, DLP = ( 2696.38 ) mGycm TECHNIQUE: Transaxial images were obtained from the dome of the diaphragm to the symphysis pubis with oral contrast. 100CC IV/Oral Isovue 300 was administered. Sagittal and coronal images were reconstructed. Individualized dose optimization techniques were used for this CT. COMPARISON: None. FINDINGS: Lung bases described on chest CT report. Normal liver. There are tiny calculi in the gallbladder neck. No gallbladder wall thickening. Normal spleen. Normal pancreas. Normal bilateral adrenal glands. 1.7 cm intermediate slightly low density cystic lesion of the right kidney is evident on image 71. There is mild cortical atrophy of the left kidney, consistent with chronic medical renal disease. No hydronephrosis. Normal visualized stomach. Normal small intestine. Normal colon. There is non-visualization of the appendix. There is diffuse atherosclerotic calcification of the abdominal aorta, without a demonstrated aneurysm. Normal inferior vena cava. Normal retroperitoneum. Normal urinary bladder. Radiation seed implants along the prostate gland are noted with history. There is a small umbilical hernia containing fat. There are diffuse degenerative changes of the visualized lumbar spine. No lytic or sclerotic bone lesions identified. Multilevel canal stenosis throughout the lumbar spine demonstrated. CT/Abdomen/Pelvis WITH Contrast IMPRESSION: 1. No acute inflammatory process or bowel obstruction. 2. 1.7 cm indeterminate right renal cyst. 3. Left renal atrophy. 4. Atherosclerosis. 5. Gallstones within the gallbladder neck but no evidence of cholecystitis by CT criteria. 6. Degenerative changes of the lumbar spine with canal stenosis at multiple levels. Electronically Signed: Emigdio Bai MD at 14:03 EDT , Service support ,
--- NOTE | 2018-09-22 11:14 | ED.VISSUMM ---
- ER Visit Summary Date of Service: 09/22/18 Chief Complaint: Abdominal bloating History of Present Illness: The patient is a 72 M with abdominal bloating and distention for the past 5 days. Patient states he wakes around 4 AM each morning with anxiety and shortness of breath that will only improve after he sits upright. He denies fever or chills. He has had normal bowel movements. He denies any prior abdominal surgeries. Patient does have history of prostate cancer in remission. 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 He is on Coumadin and last INR was 3.1. Physical Examination: Vital signs are unremarkable. Patient sitting upright in bed no acute distress. He speaking full sentences. Head neck examination is unremarkable. Heart is slightly irregular. Lungs sounds are with mild end expiratory wheezes. Abdomen is soft with no focal tenderness, but is distended. Hypoactive bowel sounds are present. Test Results: CBC was normal white count. Hemoglobin is 12.5. Chemistry studies unremarkable. LFTs significant only for total bili 1.8 and direct bili 0.41. INR is 3.1. Portable chest x-ray reveals persistent but decreased right middle lobe infiltrate that was evident on prior study from July. CT chest reveals right middle lobe atelectasis. There is mild cardiomegaly. There is trace pleural effusions. CT the abdomen and pelvis shows no acute inflammatory process or bowel obstruction. Gallstones are noted in the gallbladder neck but there is no evidence of cholecystitis. Emergency Department Course and Treatment: Patient was given a DuoNeb treatment here. On repeat evaluation wheezes have resolved. Test results were discussed with patient and at bedside. I do not have a definitive cause for his increased abdominal distention. Patient be given albuterol inhaler for home if needed. He was instructed to sleep with his head elevated. I will speak with his primary care physician to help arrange close follow-up. Treatment Plan: [] Disposition: Discharge Impression: 1. Bronchospasm, improved 2. Abdominal distention, uncertain etiology This note was generated with [employer] dictation software. It may contain incorrect words, spelling, and punctuation that were not noted in review of the chart prior to signing ED Disposition - Plan for ED Patient: Referrals: Demetrio Hanks Chi, MD [Primary Care Provider] -
[2018-09-22 11:22] LABS: Absolute Neutrophil Count 7.5 X10^3/uL (2.0-7.7); Basophil# 0.03 X10^3/uL; Basophil% 0.4 % (0-1); Eosinophil# 0.15 X10^3/uL; Eosinophils% 1.8 % (0-5); Hematocrit 39.2 % (40-54); Hemoglobin 12.5 g/dl (13.0-16.5); Lymphocyte % 3.5 % (19-41); Mean Corp Hgb Conc 31.9 g/gl (32-36); Mean Corpuscular Hgb 28.6 pg (27.0-32.0); Mean Corpuscular Volume 89.7 fL (80-94); Mean Platelet Vol. 10.6 fl (6.2-12.0); Monocyte# 0.55 X10^3/uL; Monocyte% 6.4 % (0-10); Neutrophil # 7.51 X10^3/uL (2.7-7.7); Neutrophil % 87.5 % (47-70); Platelet Count 192 K/mm3 (150-450); RBC Distribution Width CV 14.9 % (11.6-14.6); RBC Distribution Width SD 48.7 fl (35.1-43.9); Red Blood Count 4.37 M/mm3 (4.6-6.2); White Blood Count 8.6 K/mm3 (4.4-11.0)
[2018-09-22 11:23] LABS: Differential Indicated SCAN CRITERIA MET; POSITIVE COUNT NO; POSITIVE DIFFERENTIAL YES; POSITIVE MORPHOLOGY NO
[2018-09-22 11:25] LABS: International Normalized Ratio 3.1; Prothrombin Time (Protime)PT. 32.2 SECONDS (11.7-14.9)
[2018-09-22] MEDS: Ipratropium/Albuterol Sulfate 3 ML AMPUL.NEB INHALATION (11:25)
[2018-09-22 11:26] VITALS: PULSE 78; RESP 18
[2018-09-22 11:32] LABS: AST(SGOT) 12 U/L (15-37); Alanine Aminotransfer ALT/SGPT 29 U/L (16-61); Albumin, Serum 3.6 g/dL (3.2-5.0); Alkaline Phosphatase 61 U/L (45-117); Anion Gap 5 (5-15); BUN 16 mg/dL (7-18); BUN/Creat Ratio 16.6 RATIO (10-20); Bilirubin, Direct 0.41 mg/dL (0.00-0.30); Calcium,Total 8.6 mg/dL (8.5-10.1); Chloride 107 mmol/L (98-107); Creatinine, Serum 0.96 mg/dL (0.70-1.30); EST Glomerular Filtration Rate 81 mL/min (>60); Est Glom Filt Rate - Afr Amer 98 mL/min (>60); Estimated Creatinine Clearance 86.37 ml/min; Globulin 3.2 g/dL (2.2-4.2); Glucose 137 mg/dL (74-106); Potassium 4.1 mmol/L (3.5-5.1); Protein, Total 6.8 g/dL (6.4-8.2); Sodium Level 142 mmol/L (136-145)
--- NOTE | 2018-09-22 11:45 | RAD_ITS ---
STUDY: X-RAY CHEST REASON FOR EXAM: Male, 72 years old. Shortness of breath TECHNIQUE: AP COMPARISON: 08/08/2018 FINDINGS: Improved aeration at the right lung base since the prior study with persistent right middle lobe infiltrate better seen on the lateral view of the prior study. There is no demonstrated pleural abnormality. There is mild cardiac enlargement. Sternal wires noted. There is an atrial clip. Normal visualized pulmonary arteries. Normal visualized aortic arch and descending thoracic aorta. No acute bony process. There is no demonstrated abnormality of the visualized soft tissue structures of the upper abdomen. RAD/Chest 1 View (Portable) IMPRESSION: Persistent but decreased right middle lobe infiltrate evident on the prior study. Cardiomegaly with operative changes. Electronically Signed: Emigdio Bai MD at 12:04 EDT , Service support ,
--- NOTE | 2018-09-22 12:08 | CT_ITS ---
STUDY: CT CHEST WITH CONTRAST REASON FOR EXAM: Male, 72 years old. History of prostate cancer, abdominal bloating for one week RADIATION DOSAGE (If Supplied By Facility): CTDIvol = ( 23.31 ) mGy, DLP = ( 2696.38 ) mGycm TECHNIQUE: Transaxial imaging was performed following intravenous administration of 100CC IV Isovue 300. Individualized dose optimization techniques were used for this CT. COMPARISON: None. FINDINGS: No consolidating pneumonia. Small right and trace left pleural effusions are demonstrated. No cavitating process. There is localized opacity in the right middle lobe more compatible with atelectasis rather than pneumonia. There is mild cardiac enlargement. Sternal wires and mediastinal surgical clips compatible with prior CABG. There are multiple small lymph nodes within the mediastinum, which are normal in size and morphology most compatible with reactive lymph hyperplasia. Normal hilar regions. There is prominence of the pulmonary hilar arteries and peripheral pulmonary arteries, consistent with congestive heart failure (CHF). Atrophic and its clip noted. There is atherosclerosis of the thoracic aorta. There are multi-level degenerative changes of the thoracic spine. Upper abdomen described on abdomen/pelvis CT report. CT/Chest WITH Contrast IMPRESSION: 1. Right middle lobe atelectasis. No cavitating process. 2. Mild cardiomegaly with mild vascular engorgement and small right/trace left pleural effusions. Electronically Signed: Emigdio Bai MD at 14:06 EDT , Service support ,
[2018-09-22 13:00] VITALS: RESP 18; O2SAT 95
--- NOTE | 2018-09-22 14:51 | ED.DEP ---
ED Disposition - Plan for ED Patient: Disposition: Home or Assisted Living Instructions: ED Abdominal Pain Unkn Cause Male, ED Wheezing Prescriptions: Albuterol Inhaler [Ventolin Hfa] 1 - 2 puff INHALATION Q4H PRN PRN #1 inhaler PRN Reason: Wheezing Referrals: Demetrio Hanks Chi, MD [Primary Care Provider] - 2 Days
[2018-09-22 14:58] VITALS: BP 156/93; PULSE 88; RESP 17
== END 2018-09-22 14:59 | disposition home or self-care (01) ==
PROVIDERS: Emergency Provider Emergency Medicine; Family Provider Family Medicine Geriatric Medicine; PCP Family Medicine Geriatric Medicine
DX: J98.01 Acute bronchospasm (principal); R14.0 Abdominal distension (gaseous); I10 Essential (primary) hypertension; I48.0 Paroxysmal atrial fibrillation; Z79.01 Long term (current) use of anticoagulants; Z79.899 Other long term (current) drug therapy; Z87.891 Personal history of nicotine dependence
CPT/HCPCS: 71045; 71260; 74177; 80048; 80076; 85025; 85610; 94640; 99284; Q9967; A4216

== ENCOUNTER → 2018-09-24 14:30 | Outpatient (CLI) | payer MEDICARE, SELFPAY ==
[2018-09-22 10:48] VITALS: BMI 31.4
== END ==
PROVIDERS: Family Provider Family Medicine Geriatric Medicine; PCP Family Medicine Geriatric Medicine; Visit Provider Family Medicine Geriatric Medicine
DX: R06.09 Other forms of dyspnea (principal); R06.89 Other abnormalities of breathing
CPT/HCPCS: 36415; 83880

== ENCOUNTER → 2018-09-26 08:43 | Outpatient (CLI) | payer MEDICARE, SELFPAY ==
[2018-05-16 14:32] VITALS: BMI 32.0
[2018-09-22 10:48] VITALS: BMI 31.4
== END ==
PROVIDERS: Family Provider Family Medicine Geriatric Medicine; PCP Family Medicine Geriatric Medicine; Referring Provider Nurse Practitioner Family; Visit Provider Nurse Practitioner Family
DX: I48.0 Paroxysmal atrial fibrillation (principal)
CPT/HCPCS: 93225; 93226

== ENCOUNTER → 2018-09-28 13:01 | Outpatient (CLI) | payer MEDICARE, SELFPAY ==
[2018-09-22 10:48] VITALS: BMI 31.4
[2018-09-28 13:45] LABS: PSA,Total- Diagnostic 0.06 ng/mL (0.0-4.0)
== END ==
PROVIDERS: Family Provider Family Medicine Geriatric Medicine; PCP Family Medicine Geriatric Medicine; Referring Provider Urology; Visit Provider Urology
DX: C61 Malignant neoplasm of prostate (principal)
CPT/HCPCS: 36415; 84153

== ENCOUNTER 2018-10-18 12:18 | Outpatient (RCR) | payer MEDICARE, SELFPAY ==
[2018-05-16 14:32] VITALS: BMI 32.0
[2018-10-05 10:43] VITALS: BMI 32.8
[2018-10-18 13:40] LABS: International Normalized Ratio 2.1; Prothrombin Time (Protime)PT. 23.1 SECONDS (11.7-14.9)
== END 2018-10-23 16:00 | disposition home or self-care (01) ==
LOC: LAB 12:18
PROVIDERS: Family Provider Family Medicine Geriatric Medicine; PCP Family Medicine Geriatric Medicine; Referring Provider Internal Medicine Cardiovascular Disease; Visit Provider Internal Medicine Cardiovascular Disease
DX: I48.0 Paroxysmal atrial fibrillation (principal); Z79.01 Long term (current) use of anticoagulants
CPT/HCPCS: 36415; 85610

== ENCOUNTER 2018-11-09 10:47 | Outpatient (RCR) | payer MEDICARE, SELFPAY ==
[2018-10-05 10:43] VITALS: BMI 32.8
[2018-11-09 12:19] LABS: Prothrombin Time (Protime)PT. 38.4 SECONDS (11.7-14.9)
[2018-11-09 12:39] LABS: International Normalized Ratio 3.9
== END 2018-11-09 12:00 | disposition home or self-care (01) ==
LOC: LAB 10:47
PROVIDERS: Family Provider Family Medicine Geriatric Medicine; PCP Family Medicine Geriatric Medicine; Referring Provider Internal Medicine Cardiovascular Disease; Visit Provider Internal Medicine Cardiovascular Disease
DX: I48.0 Paroxysmal atrial fibrillation (principal); Z79.01 Long term (current) use of anticoagulants
CPT/HCPCS: 36415; 85610

== ENCOUNTER 2018-11-29 10:37 | Outpatient (RCR) | payer MEDICARE, SELFPAY ==
[2018-10-05 10:43] VITALS: BMI 32.8
[2018-11-29 11:12] LABS: International Normalized Ratio 2.3; Prothrombin Time (Protime)PT. 25.2 SECONDS (11.7-14.9)
== END 2018-12-23 12:00 | disposition home or self-care (01) ==
LOC: LAB 10:37
PROVIDERS: Family Provider Family Medicine Geriatric Medicine; PCP Family Medicine Geriatric Medicine; Referring Provider Internal Medicine Cardiovascular Disease; Visit Provider Internal Medicine Cardiovascular Disease
DX: I48.0 Paroxysmal atrial fibrillation (principal); Z79.01 Long term (current) use of anticoagulants
CPT/HCPCS: 36415; 85610

== ENCOUNTER → 2018-12-05 09:51 | Outpatient (CLI) | payer MEDICARE, SELFPAY ==
[2018-10-05 10:43] VITALS: BMI 32.8
[2018-12-05 16:53] LABS: Absolute Neutrophil Count 8.4 X10^3/uL (2.0-7.7); Basophil# 0.02 X10^3/uL; Basophil% 0.2 % (0-1); Eosinophil# 0.08 X10^3/uL; Eosinophils% 0.8 % (0-5); Hemoglobin 13.7 g/dl (13.0-16.5); Lymphocyte % 7.2 % (19-41); Mean Corp Hgb Conc 32.6 g/gl (32-36); Mean Corpuscular Hgb 29.1 pg (27.0-32.0); Mean Corpuscular Volume 89.4 fL (80-94); Mean Platelet Vol. 11.4 fl (6.2-12.0); Monocyte# 0.46 X10^3/uL; Monocyte% 4.7 % (0-10); Neutrophil # 8.39 X10^3/uL (2.7-7.7); Neutrophil % 86.6 % (47-70); Platelet Count 226 K/mm3 (150-450); RBC Distribution Width SD 48.8 fl (35.1-43.9); White Blood Count 9.7 K/mm3 (4.4-11.0)
[2018-12-05 16:56] LABS: POSITIVE COUNT NO; POSITIVE DIFFERENTIAL NO; POSITIVE MORPHOLOGY NO
[2018-12-05 16:59] LABS: Vitamin D,25 Hydroxy 26.2 ng/mL (29.95-100.01)
[2018-12-05 17:03] LABS: ALB/GLOB Ratio 1.2 RATIO (0.9-2.4); AST(SGOT) 17 U/L (15-37); Alanine Aminotransfer ALT/SGPT 26 U/L (16-61); Albumin, Serum 3.9 g/dL (3.2-5.0); Alkaline Phosphatase 65 U/L (45-117); Anion Gap 5 (5-15); BUN 21 mg/dL (7-18); BUN/Creat Ratio 19.8 RATIO (10-20); Calcium,Total 8.8 mg/dL (8.5-10.1); Chloride 105 mmol/L (98-107); Creatinine, Serum 1.06 mg/dL (0.70-1.30); EST Glomerular Filtration Rate 73 mL/min (>60); Est Glom Filt Rate - Afr Amer 88 mL/min (>60); Globulin 3.2 g/dL (2.2-4.2); Glucose 215 mg/dL (74-106); Potassium 4.3 mmol/L (3.5-5.1); Protein, Total 7.1 g/dL (6.4-8.2); Sodium Level 137 mmol/L (136-145); Thyroid Stim Hormone (TSH) 2.28 uIU/mL (0.358-3.74)
== END ==
PROVIDERS: Family Provider Family Medicine Geriatric Medicine; PCP Family Medicine Geriatric Medicine; Visit Provider Family Medicine Geriatric Medicine
DX: E55.9 Vitamin D deficiency, unspecified (principal); I10 Essential (primary) hypertension
CPT/HCPCS: 36415; 80053; 82306; 84443; 85025

== ENCOUNTER 2018-12-31 09:36 | Outpatient (RCR) | payer MEDICARE, SELFPAY ==
[2018-10-05 10:43] VITALS: BMI 32.8
[2018-12-31 11:03] LABS: International Normalized Ratio 1.7
== END 2018-12-31 10:00 | disposition home or self-care (01) ==
LOC: LAB 09:36
PROVIDERS: Family Provider Family Medicine Geriatric Medicine; PCP Family Medicine Geriatric Medicine; Referring Provider Internal Medicine Cardiovascular Disease; Visit Provider Internal Medicine Cardiovascular Disease
DX: Z79.01 Long term (current) use of anticoagulants (principal)
CPT/HCPCS: 36415; 85610

== ENCOUNTER 2019-02-01 10:04 | Outpatient (RCR) | payer MEDICARE, SELFPAY ==
[2018-10-05 10:43] VITALS: BMI 32.8
[2019-02-01 10:28] LABS: International Normalized Ratio 2.1; Prothrombin Time (Protime)PT. 23.6 SECONDS (11.7-14.9)
== END 2019-02-01 11:00 | disposition home or self-care (01) ==
LOC: LAB 10:04
PROVIDERS: Family Provider Family Medicine Geriatric Medicine; PCP Family Medicine Geriatric Medicine; Referring Provider Internal Medicine Cardiovascular Disease; Visit Provider Internal Medicine Cardiovascular Disease
DX: Z79.01 Long term (current) use of anticoagulants (principal)
CPT/HCPCS: 36415; 85610

== ENCOUNTER 2019-03-06 09:41 | Outpatient (RCR) | payer MEDICARE, SELFPAY ==
[2018-10-05 10:43] VITALS: BMI 32.8
[2019-03-06 10:34] LABS: International Normalized Ratio 2.5; Prothrombin Time (Protime)PT. 26.6 SECONDS (11.7-14.9)
== END 2019-03-06 17:00 | disposition home or self-care (01) ==
LOC: LAB 09:41
PROVIDERS: Family Provider Family Medicine Geriatric Medicine; PCP Family Medicine Geriatric Medicine; Referring Provider Internal Medicine Cardiovascular Disease; Visit Provider Internal Medicine Cardiovascular Disease
DX: Z79.01 Long term (current) use of anticoagulants (principal)
CPT/HCPCS: 36415; 85610

== ENCOUNTER → 2019-03-26 13:07 | Outpatient (CLI) | payer MEDICARE, SELFPAY ==
[2018-10-05 10:43] VITALS: BMI 32.8
[2019-03-26 15:26] LABS: Absolute Lymphocyte Count 0.81 X10^3/uL (0.83-4.51); Absolute Neutrophil Count 7.3 X10^3/uL (2.0-7.7); Basophil# 0.06 X10^3/uL; Basophil% 0.7 % (0-1); Eosinophil# 0.18 X10^3/uL; Hematocrit 41.5 % (40-54); Hemoglobin 13.3 g/dL (13.0-16.5); Lymphocyte # 0.81 X10^3/ul (4.0); Mean Corpuscular Hgb 29.9 pg (27.0-32.0); Mean Corpuscular Volume 93.3 fL (80-94); Mean Platelet Vol. 11.3 fl (6.2-12.0); Monocyte# 0.59 X10^3/uL; Monocyte% 6.5 % (0-10); NRBC Flagged by Analyzer 0 % (0-5); Neutrophil # 7.32 X10^3/uL (2.7-7.7); Neutrophil % 80.8 % (47-70); Platelet Count 219 K/mm3 (150-450); RBC Distribution Width CV 13.2 % (11.6-14.6); Red Blood Count 4.45 M/mm3 (4.6-6.2); White Blood Count 9.1 K/mm3 (4.4-11.0)
[2019-03-26 15:50] LABS: ALB/GLOB Ratio 1.2 RATIO (0.9-2.4); AST(SGOT) 11 U/L (15-37); Alanine Aminotransfer ALT/SGPT 20 U/L (16-61); Albumin, Serum 3.6 g/dL (3.2-5.0); Alkaline Phosphatase 73 U/L (45-117); Anion Gap 7 (5-15); BUN 15 mg/dL (7-18); BUN/Creat Ratio 14.9 RATIO (10-20); Calcium,Total 8.7 mg/dL (8.5-10.1); Chloride 102 mmol/L (98-107); Creatinine, Serum 1.01 mg/dL (0.70-1.30); EST Glomerular Filtration Rate 77 mL/min (>60); Est Glom Filt Rate - Afr Amer 93 mL/min (>60); Globulin 3.1 g/dL (2.2-4.2); Glucose 173 mg/dL (74-106); Potassium 4.1 mmol/L (3.5-5.1); Protein, Total 6.7 g/dL (6.4-8.2); Sodium Level 141 mmol/L (136-145); Thyroid Stim Hormone (TSH) 3.78 uIU/mL (0.358-3.74)
[2019-03-26 15:51] LABS: Vitamin D,25 Hydroxy 18.3 ng/mL (29.95-100.01)
== END ==
PROVIDERS: Family Provider Family Medicine Geriatric Medicine; PCP Family Medicine Geriatric Medicine; Visit Provider Family Medicine Geriatric Medicine
DX: E11.65 Type 2 diabetes mellitus with hyperglycemia (principal); E23.6 Other disorders of pituitary gland; E55.9 Vitamin D deficiency, unspecified; I10 Essential (primary) hypertension
CPT/HCPCS: 36415; 80053; 82306; 84403; 84443; 85025

== ENCOUNTER → 2019-04-05 12:48 | Outpatient (CLI) | payer MEDICARE, SELFPAY ==
[2018-10-05 10:43] VITALS: BMI 32.8
--- NOTE | 2019-04-05 12:51 | ECHOCS_ITS ---
Reason For Study: Valve Replacement Eval Procedure This was a 2D Doppler, Color Flow transthoracic echocardiogram. The study was technically difficult. Contrast injection was performed. Exam performed in department. Left Ventricle Normal LV size. Mild concentric left ventricular hypertrophy. Left ventricular systolic function is normal. The estimated ejection fraction is 60 %. Unable to assess diastolic dysfunction. No regional wall motion abnormalities noted. Right Ventricle Normal RV size. Normal systolic function. Atria The left atrium is mildly enlarged. The right atrium is mildly enlarged. No doppler evidence for ASD. Mitral Valve There is mild mitral annular calcification. Normal mitral valve. Trivial mitral valve insufficiency. Tricuspid Valve Normal tricuspid valve. Trivial tricuspid valve insufficiency. Unable to estimate RV systolic pressure/pulmonary artery pressure due to technically difficult study. Aortic Valve Trisinus/trileaflet aortic valve. Mild focal aortic valve calcification. Pulmonic Valve Normal pulmonic valve. Mild-Moderate (1-2+) pulmonic valve insufficiency. Great Vessels Aortic root repair. Pericardium/Pleural No pericardial effusion. Medication Diluted definity 5ml given slow IV push to enhance endocardial definition. MMode/2D Measurements & Calculations LVIDd: 4.2 cm IVSd: 1.4 cm LVOT diam: 2.1 cm LVIDs: 3.2 cm LVPWd: 1.5 cm FS: 24.7 % LVOT area: 3.6 cm2 Ao root diam: 3.3 cm LAV(MOD-bp): 75.5 ml LA A4 area: 23.9 cm2 LAV(MOD-bp) Indexed: 29.3 ml/m2 LAV(MOD-sp2): 77.2 ml LAV(MOD-sp4): 68.9 ml LA dimension(2D): 4.8 cm RA A4 area: 21.8 cm2 Doppler Measurements & Calculations MV E max sabina: 78.9 cm/sec Ao V2 max: 106.3 cm/sec LV V1 max: 86.3 cm/sec Ao max P.5 mmHg LV V1 max P.0 mmHg Ao V2 mean: 76.7 cm/sec LV V1 mean P.6 mmHg Ao mean P.5 mmHg LV V1 mean: 60.2 cm/sec Ao V2 VTI: 17.5 cm LV V1 VTI: 13.8 cm ELTON(I,D): 2.9 cm2 ELTON(V,D): 2.9 cm2 SV(LVOT): 49.9 ml PA V2 max: 74.5 cm/sec PI end-d sabina: 114.5 cm/sec Interpretation Summary The study was technically difficult. Contrast injection was performed. Left ventricular systolic function is normal. The estimated ejection fraction is 60 %. Mild concentric left ventricular hypertrophy. The left atrium is mildly enlarged. The right atrium is mildly enlarged. There is mild mitral annular calcification. Trivial mitral valve insufficiency. Trivial tricuspid valve insufficiency. Mild focal aortic valve calcification. Mild-Moderate (1-2+) pulmonic valve insufficiency. Aortic root repair. Unable to estimate RV systolic pressure/pulmonary artery pressure due to technically difficult study. Unable to assess diastolic dysfunction. 2D echocardiograhic images demonstrate the appearance of a vague mobile echodensity (approximately 0.9 cm x 0.9 cm) associated with the aortic valve (non coronary cusp) with a differential diagnosis including vegetation, thrombus, however, other etiologies of mobile mass lesions cannot be excluded. Consider further evaluation with HAYLEY if clinically indicated. Ordering Physician: Marky Cosme Referring Physician: Demetrio Hanks Chi Performed By: Ghislaine Christianson RDCS, RVT
== END ==
PROVIDERS: Family Provider Family Medicine Geriatric Medicine; PCP Family Medicine Geriatric Medicine; Referring Provider Internal Medicine Cardiovascular Disease; Visit Provider Internal Medicine Cardiovascular Disease
DX: I25.10 Atherosclerotic heart disease of native coronary artery without angina pectoris (principal); Z98.890 Other specified postprocedural states; Z86.79 Personal history of other diseases of the circulatory system
CPT/HCPCS: 93306; Q9957; A4216; C8929

== ENCOUNTER 2019-04-15 13:24 | Outpatient (RCR) | payer MEDICARE, SELFPAY ==
[2018-10-05 10:43] VITALS: BMI 32.8
[2019-04-15 15:02] LABS: Erythrocyte Sedimentation Rate 11 mm/hr (0-20)
[2019-04-15 15:04] LABS: Hematocrit 43.9 % (40-54); Hemoglobin 14.5 g/dL (13.0-16.5); Mean Corpuscular Hgb 30.3 pg (27.0-32.0); Mean Corpuscular Volume 91.6 fL (80-94); Mean Platelet Vol. 10.9 fl (6.2-12.0); Platelet Count 237 K/mm3 (150-450); RBC Distribution Width CV 13.1 % (11.6-14.6); RBC Distribution Width SD 44.6 fl (35.1-43.9); Red Blood Count 4.79 M/mm3 (4.6-6.2); White Blood Count 9.5 K/mm3 (4.4-11.0)
[2019-04-15 15:08] LABS: International Normalized Ratio 2.7; Prothrombin Time (Protime)PT. 28.7 SECONDS (11.7-14.9)
== END 2019-04-15 18:00 | disposition home or self-care (01) ==
LOC: LAB 13:24
PROVIDERS: Family Provider Family Medicine Geriatric Medicine; PCP Family Medicine Geriatric Medicine; Referring Provider Internal Medicine Cardiovascular Disease; Visit Provider Internal Medicine Cardiovascular Disease
DX: R93.1 Abnormal findings on diagnostic imaging of heart and coronary circulation (principal); Z79.01 Long term (current) use of anticoagulants; I25.10 Atherosclerotic heart disease of native coronary artery without angina pectoris; Z98.890 Other specified postprocedural states; Z86.79 Personal history of other diseases of the circulatory system
CPT/HCPCS: 36415; 85027; 85610; 85652; 87040

== ENCOUNTER → 2019-04-30 11:47 | Outpatient (CLI) | payer MEDICARE, SELFPAY ==
[2019-04-17 11:30] VITALS: BMI 34.1
--- NOTE | 2019-04-30 11:49 | ECHOTEE_ITS ---
Reason For Study: Valve Replacement Eval Medication HAYLEY probe 6VT-D (SN [id number]) passed with minimal difficulty. No complications were noted. Cetacaine Topical Ong given X4 orally. Versed 2 mg given slow IVP. Fentanyl 100 mcg given slow IVP. Performed a rapid injection of agitated mix of 9 cc saline and 1cc air to assess for atrial septal defect. Left Ventricle Normal LV size. Left ventricular systolic function is normal. The estimated ejection fraction is 55 %. No regional wall motion abnormalities noted. Right Ventricle Normal RV size. Normal systolic function. Atria No doppler evidence for ASD. Bubble contrast study negative for right to left interatrial shunt. The left atrium is enlarged. There is no sponatenous contrast in the left atrium. No thrombus is detected in the left atrial appendage. The right atrium is enlarged. No right atrial/appendage thrombus identified. There is no sponatenous contrast in the right atrium. Mitral Valve There is mild mitral annular calcification. Extension of the mitral annular calcification onto the base of the posterior mitral valve leaflet. Mild diffuse mitral valve thickening. Mild-Moderate (1- 2+) mitral valve insufficiency. Tricuspid Valve Normal tricuspid valve. Trivial tricuspid valve insufficiency. Aortic Valve Trisinus/trileaflet aortic valve. Mild diffuse aortic valve thickening. Mild focal aortic valve calcification. Pulmonic Valve The pulmonic valve is not well visualized. Vessels Normal-appearing thoracic aorta. Pericardium No pericardial effusion. Interpretation Summary Left ventricular systolic function is normal. The estimated ejection fraction is 55 %. The left atrium is enlarged. There is no sponatenous contrast in the left atrium. No thrombus is detected in the left atrial appendage. The right atrium is enlarged. No right atrial/appendage thrombus identified. There is mild mitral annular calcification. Extension of the mitral annular calcification onto the base of the posterior mitral valve leaflet. Mild diffuse mitral valve thickening. Mild-Moderate (1-2+) mitral valve insufficiency. Trivial tricuspid valve insufficiency. Mild diffuse aortic valve thickening. Mild focal aortic valve calcification. Bubble contrast study negative for right to left interatrial shunt. Normal-appearing thoracic aorta. Comment: 2D echocardiographic images in the area of the aortic sinus demonstrate findings compatible with echocardiographic artifact/reverberation superimposed upon findings compatible with mild diffuse thickening and mild focal calcification of the aortic valve apparatus. Ordering Physician: Marky Cosme Referring Physician: Demetrio Hanks Chi Performed By: Ca Reid, [place], RVT
== END ==
PROVIDERS: Family Provider Family Medicine Geriatric Medicine; PCP Family Medicine Geriatric Medicine; Referring Provider Internal Medicine Cardiovascular Disease; Visit Provider Internal Medicine Cardiovascular Disease
DX: Z01.818 Encounter for other preprocedural examination (principal); R93.1 Abnormal findings on diagnostic imaging of heart and coronary circulation; I08.3 Combined rheumatic disorders of mitral, aortic and tricuspid valves
CPT/HCPCS: 93312; 93320; 93325; J7040; A4216

== ENCOUNTER 2019-06-06 11:25 | Outpatient (RCR) | payer MEDICARE, SELFPAY ==
[2019-04-17 11:30] VITALS: BMI 34.1
[2019-06-06 12:46] LABS: International Normalized Ratio 2.4
[2019-06-06 13:19] LABS: Anion Gap 8 (5-15); BUN 17 mg/dL (7-18); BUN/Creat Ratio 15.2 RATIO (10-20); Chloride 104 mmol/L (98-107); Creatinine, Serum 1.12 mg/dL (0.70-1.30); EST Glomerular Filtration Rate 68 mL/min (>60); Est Glom Filt Rate - Afr Amer 82 mL/min (>60); Glucose 168 mg/dL (74-106); Potassium 4.4 mmol/L (3.5-5.1); Sodium Level 137 mmol/L (136-145)
== END 2019-06-06 18:00 | disposition home or self-care (01) ==
LOC: LAB 11:25
PROVIDERS: Family Provider Family Medicine Geriatric Medicine; PCP Family Medicine Geriatric Medicine; Referring Provider Internal Medicine Cardiovascular Disease; Visit Provider Internal Medicine Cardiovascular Disease
DX: Z79.01 Long term (current) use of anticoagulants (principal); R93.1 Abnormal findings on diagnostic imaging of heart and coronary circulation
CPT/HCPCS: 36415; 80048; 85610

== ENCOUNTER → 2019-07-03 14:20 | Outpatient (CLI) | payer MEDICARE, SELFPAY ==
[2019-04-17 11:30] VITALS: BMI 34.1
[2019-07-03 15:57] LABS: Absolute Lymphocyte Count 0.76 X10^3/uL (0.83-4.51); Absolute Neutrophil Count 7.6 X10^3/uL (2.0-7.7); Basophil# 0.05 X10^3/uL; Basophil% 0.6 % (0-1); Eosinophils% 1.1 % (0-5); Hematocrit 41.8 % (40-54); Hemoglobin 13.1 g/dL (13.0-16.5); Lymphocyte # 0.76 X10^3/ul (4.0); Lymphocyte % 8.4 % (19-41); Mean Corp Hgb Conc 31.3 g/dL (32-36); Mean Corpuscular Volume 92.7 fL (80-94); Mean Platelet Vol. 11.4 fl (6.2-12.0); Monocyte% 5.5 % (0-10); NRBC Flagged by Analyzer 0 % (0-5); Neutrophil # 7.58 X10^3/uL (2.7-7.7); Neutrophil % 83.5 % (47-70); Platelet Count 216 K/mm3 (150-450); RBC Distribution Width CV 13.4 % (11.6-14.6); RBC Distribution Width SD 45.5 fl (35.1-43.9); Red Blood Count 4.51 M/mm3 (4.6-6.2); White Blood Count 9.1 K/mm3 (4.4-11.0)
[2019-07-03 16:50] LABS: Vitamin D,25 Hydroxy 20.3 ng/mL (29.95-100.01)
[2019-07-03 17:05] LABS: ALB/GLOB Ratio 1.2 RATIO (0.9-2.4); AST(SGOT) 17 U/L (15-37); Alanine Aminotransfer ALT/SGPT 25 U/L (16-61); Albumin, Serum 3.7 g/dL (3.2-5.0); Alkaline Phosphatase 62 U/L (45-117); Anion Gap 6 (5-15); BUN 18 mg/dL (7-18); BUN/Creat Ratio 15.7 RATIO (10-20); Calcium,Total 9.5 mg/dL (8.5-10.1); Chloride 106 mmol/L (98-107); Creatinine, Serum 1.15 mg/dL (0.70-1.30); EST Glomerular Filtration Rate 66 mL/min (>60); Est Glom Filt Rate - Afr Amer 80 mL/min (>60); Globulin 3.1 g/dL (2.2-4.2); Glucose 178 mg/dL (74-106); Potassium 4.3 mmol/L (3.5-5.1); Protein, Total 6.8 g/dL (6.4-8.2); Sodium Level 141 mmol/L (136-145); Thyroid Stim Hormone (TSH) 2.38 uIU/mL (0.358-3.74)
== END ==
PROVIDERS: Family Provider Family Medicine Geriatric Medicine; PCP Family Medicine Geriatric Medicine; Visit Provider Family Medicine Geriatric Medicine
DX: E55.9 Vitamin D deficiency, unspecified (principal); I10 Essential (primary) hypertension
CPT/HCPCS: 36415; 80053; 82306; 84443; 85025

== ENCOUNTER 2019-08-19 11:34 | Outpatient (RCR) | payer MEDICARE, SELFPAY ==
[2019-04-17 11:30] VITALS: BMI 34.1
[2019-08-06 12:15] LABS: International Normalized Ratio 3.7
[2019-08-06 12:24] LABS: Prothrombin Time (Protime)PT. 36.6 SECONDS (11.7-14.9)
[2019-08-19 13:59] LABS: International Normalized Ratio 2.3; Prothrombin Time (Protime)PT. 24.9 SECONDS (11.7-14.9)
[2019-08-19 14:35] LABS: PSA,Total- Diagnostic 0.13 ng/mL (0.0-4.0)
== END 2019-08-19 18:00 | disposition home or self-care (01) ==
LOC: LAB 11:34
PROVIDERS: Family Provider Family Medicine Geriatric Medicine; PCP Family Medicine Geriatric Medicine; Referring Provider Internal Medicine Cardiovascular Disease; Visit Provider Internal Medicine Cardiovascular Disease
DX: Z79.01 Long term (current) use of anticoagulants (principal); C61 Malignant neoplasm of prostate
CPT/HCPCS: 36415; 84153; 85610

== ENCOUNTER 2019-10-16 14:11 | Outpatient (RCR) | payer MEDICARE, SELFPAY ==
[2019-04-17 11:30] VITALS: BMI 34.1
[2019-10-16 14:42] LABS: Absolute Lymphocyte Count 0.85 X10^3/uL (0.83-4.51); Absolute Neutrophil Count 7.2 X10^3/uL (2.0-7.7); Basophil# 0.05 X10^3/uL; Basophil% 0.6 % (0-1); Eosinophil# 0.11 X10^3/uL; Eosinophils% 1.2 % (0-5); Hematocrit 43.5 % (40-54); Lymphocyte # 0.85 X10^3/ul (4.0); Lymphocyte % 9.6 % (19-41); Mean Corp Hgb Conc 32.2 g/dL (32-36); Mean Corpuscular Hgb 29.3 pg (27.0-32.0); Mean Platelet Vol. 10.3 fl (6.2-12.0); Monocyte# 0.58 X10^3/uL; Monocyte% 6.6 % (0-10); NRBC Flagged by Analyzer 0 % (0-5); Neutrophil % 81.4 % (47-70); Platelet Count 200 K/mm3 (150-450); RBC Distribution Width CV 13.5 % (11.6-14.6); RBC Distribution Width SD 45.2 fl (35.1-43.9); Red Blood Count 4.78 M/mm3 (4.6-6.2); White Blood Count 8.8 K/mm3 (4.4-11.0)
[2019-10-16 14:55] LABS: International Normalized Ratio 2.3; Prothrombin Time (Protime)PT. 25.1 SECONDS (11.7-14.9)
[2019-10-16 15:06] LABS: Vitamin D,25 Hydroxy 22.4 ng/mL
[2019-10-16 15:12] LABS: ALB/GLOB Ratio 1.2 RATIO (0.9-2.4); AST(SGOT) 11 U/L (15-37); Alanine Aminotransfer ALT/SGPT 22 U/L (16-61); Albumin, Serum 3.8 g/dL (3.2-5.0); Alkaline Phosphatase 64 U/L (45-117); Anion Gap 6 (5-15); BUN 16 mg/dL (7-18); BUN/Creat Ratio 15.4 RATIO (10-20); Calcium,Total 9.1 mg/dL (8.5-10.1); Chloride 103 mmol/L (98-107); Creatinine, Serum 1.04 mg/dL (0.70-1.30); EST Glomerular Filtration Rate 74 mL/min (>60); Est Glom Filt Rate - Afr Amer 90 mL/min (>60); Globulin 3.2 g/dL (2.2-4.2); Glucose 154 mg/dL (74-106); Potassium 4.5 mmol/L (3.5-5.1); Sodium Level 139 mmol/L (136-145); Thyroid Stim Hormone (TSH) 1.84 uIU/mL (0.358-3.74)
== END 2019-10-24 18:00 | disposition home or self-care (01) ==
LOC: LAB 14:11
PROVIDERS: Family Provider Family Medicine Geriatric Medicine; PCP Family Medicine Geriatric Medicine; Referring Provider Internal Medicine Cardiovascular Disease; Visit Provider Internal Medicine Cardiovascular Disease
DX: E23.6 Other disorders of pituitary gland (principal); E55.9 Vitamin D deficiency, unspecified; I10 Essential (primary) hypertension; Z79.01 Long term (current) use of anticoagulants
CPT/HCPCS: 36415; 80053; 82306; 84403; 84443; 85025; 85610

== ENCOUNTER → 2020-01-01 14:30 | Outpatient (CLI) | payer MEDICARE, SELFPAY ==
[2019-10-24 09:28] VITALS: BMI 32.0
[2020-01-01 16:10] LABS: Absolute Lymphocyte Count 0.86 X10^3/uL (0.83-4.51); Absolute Neutrophil Count 8.4 X10^3/uL (2.0-7.7); Basophil# 0.06 X10^3/uL; Basophil% 0.6 % (0-1); Eosinophil# 0.19 X10^3/uL; Eosinophils% 1.9 % (0-5); Hematocrit 43.7 % (40-54); Lymphocyte # 0.86 X10^3/ul (4.0); Lymphocyte % 8.4 % (19-41); Mean Corpuscular Hgb 29.2 pg (27.0-32.0); Mean Platelet Vol. 11.3 fl (6.2-12.0); Monocyte# 0.66 X10^3/uL; Monocyte% 6.5 % (0-10); NRBC Flagged by Analyzer 0 % (0-5); Neutrophil # 8.41 X10^3/uL (2.7-7.7); Neutrophil % 82.1 % (47-70); Platelet Count 271 K/mm3 (150-450); RBC Distribution Width CV 13.1 % (11.6-14.6); RBC Distribution Width SD 43.2 fl (35.1-43.9); White Blood Count 10.2 K/mm3 (4.4-11.0)
[2020-01-01 16:31] LABS: Vitamin D,25 Hydroxy 25.5 ng/mL
[2020-01-01 17:05] LABS: ALB/GLOB Ratio 1.1 RATIO (0.9-2.4); AST(SGOT) 9 U/L (15-37); Alanine Aminotransfer ALT/SGPT 19 U/L (16-61); Albumin, Serum 3.8 g/dL (3.2-5.0); Alkaline Phosphatase 64 U/L (45-117); Anion Gap 8 (5-15); BUN 21 mg/dL (7-18); BUN/Creat Ratio 15.7 RATIO (10-20); Calcium,Total 8.9 mg/dL (8.5-10.1); Chloride 100 mmol/L (98-107); Creatinine, Serum 1.34 mg/dL (0.70-1.30); EST Glomerular Filtration Rate 55 mL/min (>60); Est Glom Filt Rate - Afr Amer 67 mL/min (>60); Globulin 3.5 g/dL (2.2-4.2); Glucose 176 mg/dL (74-106); Potassium 3.8 mmol/L (3.5-5.1); Protein, Total 7.3 g/dL (6.4-8.2); Sodium Level 137 mmol/L (136-145); Thyroid Stim Hormone (TSH) 3.64 uIU/mL (0.358-3.74)
== END ==
PROVIDERS: PCP Family Medicine Geriatric Medicine; Visit Provider Family Medicine Geriatric Medicine
DX: E11.65 Type 2 diabetes mellitus with hyperglycemia (principal); E23.6 Other disorders of pituitary gland; E55.9 Vitamin D deficiency, unspecified; I10 Essential (primary) hypertension
CPT/HCPCS: 36415; 80053; 82306; 84403; 84443; 85025

== ENCOUNTER → 2020-01-08 09:44 | Outpatient (CLI) | payer MEDICARE, SELFPAY ==
[2019-10-24 09:28] VITALS: BMI 32.0
--- NOTE | 2020-01-08 09:47 | US_ITS ---
STUDY: ABDOMINAL ULTRASOUND - RIGHT UPPER QUADRANT REASON FOR VISIT: Male, 74 years old elevated LFTs TECHNIQUE: Ultrasound evaluation of the right upper quadrant was performed with real-time and static harris-scale imaging. TECHNICAL QUALITY: Adequate. COMPARISON: None. FINDINGS: Liver: The liver measures 16.1 cm. There is normal echogenicity of the liver. The bile ducts are within normal limits. There is hepatic color flow. The direction of portal flow is hepatopetal. There is no demonstrated mass lesion. Gallbladder: Normal distended gallbladder. The gallbladder wall measures 2.7 mm. There is a negative sonographic Teran''s sign. There is no pericholecystic fluid. There is biliary sludge dependent within the gallbladder. Common Bile Duct (C.B.D.): The common bile duct measures 4.3 mm. Pancreas: Normal size of the head, body and tail of the pancreas. There is increased echogenicity of the pancreas. There is no demonstrated pancreatic mass or cyst. Right Kidney: Normal size of the right kidney. The right kidney measures 11.8 x 6.8 x 6.4 cm. Normal renal cortex. The right cortex measures 1.9 cm. There is a simple 2.7 cm cyst. There is no right hydronephrosis. US/Abdomen Limited IMPRESSION: Echogenic sludge within the gallbladder, but no sonographic evidence of cholecystitis Simple right renal cyst, no specific follow-up needed Electronically Signed: Doron Castañeda MD at 11:00 EDT , Service support ,
== END ==
PROVIDERS: PCP Family Medicine Geriatric Medicine; Referring Provider Family Medicine Geriatric Medicine; Visit Provider Family Medicine Geriatric Medicine
DX: K76.9 Liver disease, unspecified (principal)
CPT/HCPCS: 76705

== ENCOUNTER → 2020-01-16 10:18 | Outpatient (CLI) | payer MEDICARE, SELFPAY ==
[2019-10-24 09:28] VITALS: BMI 32.0
--- NOTE | 2020-01-16 10:21 | NM_ITS ---
CLINICAL: 74-year-old male with reported history of abdominal pain and elevation of the serum transaminase enzyme levels RADIONUCLIDE HEPATOBILIARY SCINTIGRAPHY COMPARISON: Abdominal ultrasound report 01/08/2020 FINDINGS: Following the intravenous administration of 5.5 mCi of 99m Tc Mebrofenin, hepatobiliary images reveal: 1. Relatively prompt and homogeneous radiopharmaceutical concentration is noted by a normal sized liver. No parenchymal defects are identified. 2. Gallbladder activity is identified at 15 minutes post radiopharmaceutical administration. 3. Small intestinal tract is observed at 45 minutes following tracer injection. 4. Washout of the radiopharmaceutical by the hepatic parenchyma appears qualitatively normal. Cholecystokinin (0.02 ug/kg) was administered intravenously over a 30-minute period. The post CCK gallbladder ejection fraction calculated at 20 minutes following Cholecystokinin administration was noted to be < 5 % (normal greater than 35%). IN/Hepatobilliary Img w/Pharm Int IMPRESSION: 1. ABNORMAL 99m Tc Mebrofenin hepatobiliary imaging examination with Cholecystokinin. A. A gallbladder ejection fraction calculated to be less than 35% following the administration of Cholecystokinin is consistent with the presence of functional hepatobiliary disease (gallbladder and/or sphincter of Oddi dyskinesia) and/or organic hepatobiliary disease (chronic acalculous cholecystitis and/or cystic duct syndrome) in patients with intermediate to high pretest probabilities of hepatobiliary illness. (Tolu Cummins et al, Journal of Nuclear Medicine 32:1695, 1991). Electronically Signed: Alan Castillo DO at 22:31 EDT Tel , Service support ,
== END ==
PROVIDERS: PCP Family Medicine Geriatric Medicine; Referring Provider Family Medicine Geriatric Medicine; Visit Provider Family Medicine Geriatric Medicine
DX: K82.9 Disease of gallbladder, unspecified (principal)
CPT/HCPCS: 78227; A9537; J2805

== ENCOUNTER → 2020-02-12 08:00 | Outpatient (CLI) | payer MEDICARE, SELFPAY ==
[2020-02-10 13:30] VITALS: BMI 32.0
--- NOTE | 2020-02-13 09:36 | EKG12_ITS ---
Test Reason : PRE OP Blood Pressure : / mmHG Vent. Rate : 078 BPM Atrial Rate : 340 BPM P-R Int : 000 ms QRS Dur : 094 ms QT Int : 382 ms P-R-T Axes : 000 002 041 degrees QTc Int : 435 ms Atrial fibrillation Nonspecific ST abnormality Abnormal ECG Confirmed by GARRETT PERALTA, LEATHA ([id number]), society editor TANNER ALONZO ([id number]) on 02/14/2020 2:43:30 PM Referred By: Mikel Dick Confirmed By:MAGDI TUCKER MD
--- NOTE | 2020-02-20 12:45 | HP_ITS ---
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 gasseri-B. bifidum-B longum 1.5 billion cell capsule 1 cap PO DAILY cap 10/24/19 [History Confirmed 02/10/20] docusate sodium 100 mg capsule 100 mg PO DAILY PRN 10/24/19 [History Confirmed 02/10/20] metformin 1,000 mg tablet 1,000 mg PO BID 10/24/19 [History Confirmed 02/10/20] prednisone 5 mg tablet 5 mg PO DAILY 10/24/19 [History Confirmed 02/10/20] tamsulosin 0.4 mg capsule 0.4 mg PO BID cap 10/24/19 [History Confirmed 02/10/20] metoprolol tartrate 50 mg tablet 50 mg PO BID #180 tab 12/02/19 [Rx Confirmed 02/10/20] [facility] Medical History Abnormal echocardiogram findings without diagnosis (Acute) Pure hypercholesterolemia (Chronic) Essential hypertension (Chronic) Hypothyroidism (Chronic) Paroxysmal atrial fibrillation (Chronic) Aortic valve disease (Resolved) Thoracic aortic aneurysm without rupture (Resolved) Encounter for long-term current use of high risk medication (Chronic) Atherosclerotic heart disease of [place] coronary artery without angina pectoris (Chronic) senior care current use of anticoagulant (Chronic) Syncope and collapse (Acute) BPH (benign prostatic hyperplasia) (Acute) Surgical History History of aortic root repair (Chronic) History of aortic valve repair (Chronic) History of aortic aneurysm repair (Resolved) History of cardiac radiofrequency ablation (Resolved) History of knee surgery (Resolved) History of tonsillectomy (Resolved) History of vasectomy (Resolved) H/O aortic valve repair (Inactive) Family History (Updated 02/10/20 @ 13:20 by Samantha Esparza) Father Hypertension Heart disease Mother Bladder cancer High cholesterol Social History (Updated 02/10/20 @ 14:[address] Mikel Dick MD) Smoking Status: Former smoker second hand exposure: No alcohol intake: current alcohol intake frequency: 0-2 drinks per day Alcohol type: wine substance use type: does not use caffeine: Yes Type: coffee Number of servings: 1 what type of physical activity do you participate in: none frequency: does not exercise HPI HPI HPI: KAL ENCARNACION, is a 74 M who presents to the office today for HPI HPI Surgical H&P: Yes HPI: AKL ENCARNACION, is a 74 M who presents to the office today for Biliary sludge. The patient was having normal annual labs and was noted that he had increased bilirubin. The patient is not having any abdominal pain or nausea or vomiting. The patient does have occasional constipation. The patient had a HIDA scan and ultrasound which were both abnormal. The patient reports no pain with eating. ROS General General: Yes weight change; no appetite, fatigue, colon cancer, breast cancer or weakness HEENT HEENT: No difficulty swallowing, eye injury, eye surgery, swollen glands or hoarseness Endo Endocrine: Yes thyroid disease; no diabetes mellitus, thyroid cancer, Hair loss, heat intolerance or cold intolerance Skin Skin: No rash or changing moles Breast Breast: No left breast lump, right breast lump, nipple discharge, breast pain, abnormal mammogram, abnormal US or breast enlargement Musc Musculoskeletal: Yes arthritis; no back problems, rheumatoid arthritis, gout or joint pain Cardio Cardiovascular: Yes atrial fibrillation and high blood pressure; no murmur, pacemaker, heart disease, heart attack, heart stent, palpitations, shortness of breat with exertion or chest pain Psych Psychiatric: No depression, anxiety or hearing voices Resp Respiratory: No shortness of breath, No sleep apnea, No cough, No COPD, No asthma, No emphysema, No wheezing Gastro Gastrointestinal: No abdominal pain, No nausea or vomiting, No diarrhea, No constipation, No blood in stool, No acid reflux, No hemorrhoids, No ulcers, No gallbladder problem, No black,tarry stools Andrews Hematologic: Yes blood thinners, No blood disorders, No bleeding, No anemia, No blood clots Neuro Neurologic: No system reviewed and no additional complaints, except as docu, No as per HPI, No abnormal walking, No abnormal hearing, No abnormal movements, No abnormal speech, No behavioral changes, No burning sensations, No confusion, No seizure-like activity, No unsteadiness, No dizziness, No localized weakness, No frequent falls, No headache(s), No lack of coordination, No loss of vision, No memory loss, No numbness, No other visual disturbances, No radiating pain, No restless legs, No sensory deficit, No fainting, No tingling, No tremor(s), No weakness, No other Exam Const General: cooperative Orientation: alert, oriented x3 HENMT Head: normal to inspection Ears: hearing grossly normal bilaterally Eyes General: appearance normal, both eyes and all related structures Visual Suarez: normal visual suarez by confrontation Neck Neck: normal visual inspection Chest Chest palpation & inspection: normal inspection of the chest Breast Palpation: No nipple discharge Resp Effort & Inspection: normal respiratory effort Auscultation: clear to auscultation bilaterally Cardio Rate: regular rate Rhythm: regular rhythm Heart Sounds: no murmurs GI Inspection: non-distended Palpation: soft, nontender Musc Cervical Spine: normal cervical lordosis, cervical ROM normal Skin General: no rashes or lesions noted Neuro General: alert, oriented x3 Cranial Nerves: CN's II-XI intact bilaterally Cognition: normal cognition Extrem General: normal to inspection, full ROM Psych Appearance: grossly normal Affect: normal affect Assessment & Plan Problems 1. Gallbladder sludge K82.8 Plan The patient had ultrasound after noticing elevated LFTs. The patient's ultrasound showed biliary sludge. The patient also had a HIDA exam which showed an ejection fraction of less than 5%. I discussed laparoscopic cholecystectomy in detail with the patient. I explained that there were risks of leaving sludge in his gallbladder and those include acute cholecystitis and sepsis. I also explained that it was unclear if the patient would ever have issues with his gallbladder. I explained that his risks increased due to his diabetes as well. After discussion the patient decided to proceed with laparoscopic cholecystectomy with cholangiogram. I asked the patient to hold his Coumadin for 1 week prior to procedure. I will check with his PCP to see if Lovenox bridge would be necessary upon stopping Coumadin or restarting Coumadin. I discussed the procedure in detail with the patient. I discussed the risks, benefits, and alternatives of the procedure. I discussed the risks including but not limited to bleeding, infection, injury to surrounding organs such as the liver, bile duct, bowels. I did discuss the possibility of having to convert to an open procedure as well as the possibility that if any injuries occurred this may necessitate further surgery at a tertiary care center. We discussed the current risks associated with COVID-19. While it is understood that there is a community spread of COVID-19, the risk of dorothy COVID-19 while at [facility] ([facility]) is very low; however, the risk cannot be completely mitigated because of the community spread of the disease. We discussed in detail the risk of exposure to and/or potential harm posed by the COVID-19 virus with having a surgery/procedure at this time versus the risk of delaying the surgery/procedure. It is not possible to know either the risk of delaying the surgery or procedure or chance of getting an infection with perfect accuracy, but a joint decision was made to proceed at this time with the scheduled surgery/procedure as indicated on the consent form. Patient was notified that we will need to comply with any screening or testing [facility] wishes to perform or that surgery may be delayed for any positive results. Mikel Dick MD Pager: [facility] [address] [place] [address], [address] [place] [address] Office: Coding Level of Care Code Off vis,new,level 4 Diagnoses Gallbladder sludge K82.8
== END ==
PROVIDERS: Anesthesiology; PCP Family Medicine Geriatric Medicine; Referring Provider Surgery; Visit Provider Surgery
DX: Z01.818 Encounter for other preprocedural examination (principal); Z11.59 Encounter for screening for other viral diseases
CPT/HCPCS: 87635; 93005; 94799; U0003

== ENCOUNTER 2020-03-05 12:18 | Outpatient (RCR) | payer MEDICARE, SELFPAY ==
[2019-10-24 09:28] VITALS: BMI 32.0
[2020-02-10 13:30] VITALS: BMI 32.0
[2020-03-05 12:52] LABS: Prothrombin Time (Protime)PT. 22.4 SECONDS (11.7-14.9)
== END 2020-03-05 18:00 | disposition home or self-care (01) ==
LOC: LAB 12:18
PROVIDERS: Family Provider Family Medicine Geriatric Medicine; PCP Family Medicine Geriatric Medicine; Referring Provider Internal Medicine Cardiovascular Disease; Visit Provider Internal Medicine Cardiovascular Disease
DX: I48.0 Paroxysmal atrial fibrillation (principal); Z79.01 Long term (current) use of anticoagulants
CPT/HCPCS: 36415; 85610

== ENCOUNTER 2020-03-12 06:00 | Day surgery (SDC) | payer MEDICARE, SELFPAY ==
--- NOTE | 2020-02-10 02:22 | HP_ITS ---
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 gasseri-B. bifidum-B longum 1.5 billion cell capsule 1 cap PO DAILY cap 10/24/19 [History Confirmed 02/10/20] docusate sodium 100 mg capsule 100 mg PO DAILY PRN 10/24/19 [History Confirmed 02/10/20] metformin 1,000 mg tablet 1,000 mg PO BID 10/24/19 [History Confirmed 02/10/20] prednisone 5 mg tablet 5 mg PO DAILY 10/24/19 [History Confirmed 02/10/20] tamsulosin 0.4 mg capsule 0.4 mg PO BID cap 10/24/19 [History Confirmed 02/10/20] metoprolol tartrate 50 mg tablet 50 mg PO BID #180 tab 12/02/19 [Rx Confirmed 02/10/20] [facility] Medical History Abnormal echocardiogram findings without diagnosis (Acute) Pure hypercholesterolemia (Chronic) Essential hypertension (Chronic) Hypothyroidism (Chronic) Paroxysmal atrial fibrillation (Chronic) Aortic valve disease (Resolved) Thoracic aortic aneurysm without rupture (Resolved) Encounter for long-term current use of high risk medication (Chronic) Atherosclerotic heart disease of [place] coronary artery without angina pectoris (Chronic) [facility]PC current use of anticoagulant (Chronic) Syncope and collapse (Acute) BPH (benign prostatic hyperplasia) (Acute) Surgical History History of aortic root repair (Chronic) History of aortic valve repair (Chronic) History of aortic aneurysm repair (Resolved) History of cardiac radiofrequency ablation (Resolved) History of knee surgery (Resolved) History of tonsillectomy (Resolved) History of vasectomy (Resolved) H/O aortic valve repair (Inactive) Family History (Updated 02/10/20 @ 13:20 by Samantha Esparza) Father Hypertension Heart disease Mother Bladder cancer High cholesterol Social History (Updated 02/10/20 @ 14:[address] Mikel Dick MD) Smoking Status: Former smoker second hand exposure: No alcohol intake: current alcohol intake frequency: 0-2 drinks per day Alcohol type: wine substance use type: does not use caffeine: Yes Type: coffee Number of servings: 1 what type of physical activity do you participate in: none frequency: does not exercise HPI HPI HPI: KAL ENCARNACION, is a 74 M who presents to the office today for HPI HPI Surgical H&P: Yes HPI: KAL ENCARNACION, is a 74 M who presents to the office today for Biliary sludge. The patient was having normal annual labs and was noted that he had increased bilirubin. The patient is not having any abdominal pain or nausea or vomiting. The patient does have occasional constipation. The patient had a HIDA scan and ultrasound which were both abnormal. The patient reports no pain with eating. ROS General General: Yes weight change; no appetite, fatigue, colon cancer, breast cancer or weakness HEENT HEENT: No difficulty swallowing, eye injury, eye surgery, swollen glands or hoarseness Endo Endocrine: Yes thyroid disease; no diabetes mellitus, thyroid cancer, Hair loss, heat intolerance or cold intolerance Skin Skin: No rash or changing moles Breast Breast: No left breast lump, right breast lump, nipple discharge, breast pain, abnormal mammogram, abnormal US or breast enlargement Musc Musculoskeletal: Yes arthritis; no back problems, rheumatoid arthritis, gout or joint pain Cardio Cardiovascular: Yes atrial fibrillation and high blood pressure; no murmur, pacemaker, heart disease, heart attack, heart stent, palpitations, shortness of breat with exertion or chest pain Psych Psychiatric: No depression, anxiety or hearing voices Resp Respiratory: No shortness of breath, No sleep apnea, No cough, No COPD, No asthma, No emphysema, No wheezing Gastro Gastrointestinal: No abdominal pain, No nausea or vomiting, No diarrhea, No constipation, No blood in stool, No acid reflux, No hemorrhoids, No ulcers, No gallbladder problem, No black,tarry stools Andrews Hematologic: Yes blood thinners, No blood disorders, No bleeding, No anemia, No blood clots Neuro Neurologic: No system reviewed and no additional complaints, except as docu, No as per HPI, No abnormal walking, No abnormal hearing, No abnormal movements, No abnormal speech, No behavioral changes, No burning sensations, No confusion, No seizure-like activity, No unsteadiness, No dizziness, No localized weakness, No frequent falls, No headache(s), No lack of coordination, No loss of vision, No memory loss, No numbness, No other visual disturbances, No radiating pain, No restless legs, No sensory deficit, No fainting, No tingling, No tremor(s), No weakness, No other Exam Const General: cooperative Orientation: alert, oriented x3 HENMT Head: normal to inspection Ears: hearing grossly normal bilaterally Eyes General: appearance normal, both eyes and all related structures Visual Suarez: normal visual suarez by confrontation Neck Neck: normal visual inspection Chest Chest palpation & inspection: normal inspection of the chest Breast Palpation: No nipple discharge Resp Effort & Inspection: normal respiratory effort Auscultation: clear to auscultation bilaterally Cardio Rate: regular rate Rhythm: regular rhythm Heart Sounds: no murmurs GI Inspection: non-distended Palpation: soft, nontender Musc Cervical Spine: normal cervical lordosis, cervical ROM normal Skin General: no rashes or lesions noted Neuro General: alert, oriented x3 Cranial Nerves: CN's II-XI intact bilaterally Cognition: normal cognition Extrem General: normal to inspection, full ROM Psych Appearance: grossly normal Affect: normal affect Assessment & Plan Problems 1. Gallbladder sludge K82.8 Plan The patient had ultrasound after noticing elevated LFTs. The patient's ultrasound showed biliary sludge. The patient also had a HIDA exam which showed an ejection fraction of less than 5%. I discussed laparoscopic cholecystectomy in detail with the patient. I explained that there were risks of leaving sludge in his gallbladder and those include acute cholecystitis and sepsis. I also explained that it was unclear if the patient would ever have issues with his gallbladder. I explained that his risks increased due to his diabetes as well. After discussion the patient decided to proceed with laparoscopic cholecystectomy with cholangiogram. I asked the patient to hold his Coumadin for 1 week prior to procedure. I will check with his PCP to see if Lovenox bridge would be necessary upon stopping Coumadin or restarting Coumadin. I discussed the procedure in detail with the patient. I discussed the risks, benefits, and alternatives of the procedure. I discussed the risks including but not limited to bleeding, infection, injury to surrounding organs such as the liver, bile duct, bowels. I did discuss the possibility of having to convert to an open procedure as well as the possibility that if any injuries occurred this may necessitate further surgery at a tertiary care center. We discussed the current risks associated with COVID-19. While it is understood that there is a community spread of COVID-19, the risk of dorothy COVID-[address] [facility] ([facility]) is very low; however, the risk cannot be completely mitigated because of the community spread of the disease. We discussed in detail the risk of exposure to and/or potential harm posed by the COVID-19 virus with having a surgery/procedure at this time versus the risk of delaying the surgery/procedure. It is not possible to know either the risk of delaying the surgery or procedure or chance of getting an infection with perfect accuracy, but a joint decision was made to proceed at this time with the scheduled surgery/procedure as indicated on the consent form. Patient was notified that we will need to comply with any screening or testing [facility] wishes to perform or that surgery may be delayed for any positive results. Mikel Dick MD Pager: [facility] [address] [place] [address], [address] [place] [address] Office: Coding Level of Care Code Off vis,new,level 4 Diagnoses Gallbladder sludge K82.8 02/10/20 1422 <Electronically signed by Mikel lanier MD> Date _ Mikel Dick MD
[2020-02-10 13:30] VITALS: BMI 32.0
[2020-03-12] VITALS (8 sets, daily range): BP systolic 103–124; BP diastolic 62–80; PULSE 61–75; RESP 16; TEMP 36.1–36.2; O2SAT 92–98; BMI 31.5
[2020-03-12 06:41] LABS: Prothrombin Time Fingerstick 13.4 SEC (11.9-14.4)
[2020-03-12] MEDS: Lactated Ringers 1,000 ML 100 ML IV ×2 (06:43→09:15)
--- NOTE | 2020-03-12 07:07 | HP.PCM_ITS ---
Problem List (1) Biliary sludge Status: Acute (2) Biliary dyskinesia Status: Acute History of Present Illness Date of Admission: 03/12/20 The patient is a 74 year old M who presented after annual exam showing increased liver enzymes. The patient had HIDA and ultrasound which showed sludge in the gallbladder and ejection fraction of less than 5%. The patient was not exhibiting pain after eating. Past Medical History Past Medical History (Chronic Problems): Chronic Problems (Last Reviewed 02/10/20 @ 13:19 by Samantha Esparza) History of aortic root repair (Chronic) Aortic vavle repair & aortic root replacement @ [facility] 02/23/16; Pure hypercholesterolemia (Chronic) Essential hypertension (Chronic) Hypothyroidism (Chronic) History of aortic valve repair (Chronic) Aortic vavle repair & aortic root replacement @ [facility] 02/23/16; Paroxysmal atrial fibrillation (Chronic) ablation in 1997, multiple cardioversions Encounter for long-term current use of high risk medication (Chronic) Atherosclerotic heart disease of [place] coronary artery without angina pectoris (Chronic) Mild residential current use of anticoagulant (Chronic) Medical History: Medical History (Last Reviewed 02/10/20 @ 13:19 by Samantha Esparza) Abnormal echocardiogram findings without diagnosis (Acute) R93.1 Pure hypercholesterolemia (Chronic) E78.00 Essential hypertension (Chronic) I10 Hypothyroidism (Chronic) E03.9 Paroxysmal atrial fibrillation (Chronic) I48.0 ablation in 1997, multiple cardioversions Aortic valve disease (Resolved) I35.9 AVR 2016 Thoracic aortic aneurysm without rupture (Resolved) I71.2 repair in 2016 at [facility] Encounter for long-term current use of high risk medication (Chronic) Z79.899 Atherosclerotic heart disease of [place] coronary artery without angina pectoris (Chronic) I25.10 Mild residential current use of anticoagulant (Chronic) Z79.01 Syncope and collapse (Acute) R55 BPH (benign prostatic hyperplasia) N40.0 Allergies No Known Allergies Allergy (Verified 02/12/20 08:13) Home Medications: Ambulatory Orders Medication Instructions Recorded Pravastatin [Pravachol] 40 mg PO QHS 03/09/16 losartan 100 1 tab PO DAILY #90 tab 12/17/18 mg-hydrochlorothiazide 25 mg tablet levothyroxine 150 mcg tablet 150 mcg PO DAILY 04/17/19 L. gasseri-B. bifidum-B longum 1.5 1 cap PO DAILY cap 04/30/20 billion cell capsule docusate sodium 100 mg capsule 100 mg PO DAILY PRN 10/24/19 metformin 1,000 mg tablet 1,000 mg PO BID 10/24/19 prednisone 5 mg tablet 10 mg PO DAILY 10/24/19 tamsulosin 0.4 mg capsule 0.8 mg PO DAILY cap 10/24/19 metoprolol tartrate 50 mg tablet 50 mg PO BID #180 tab 12/02/19 Warfarin Sodium 3 mg PO SUWE 02/12/20 Warfarin Sodium [Coumadin] 6 mg PO MOTUTHFR 02/12/20 Surgical History: Surgical History (Last Reviewed 02/10/20 @ 13:19 by Samantha Esparza) History of aortic root repair (Chronic) Z98.890 Aortic vavle repair & aortic root replacement @ [facility] 02/23/16; History of aortic valve repair (Chronic) Z98.890, Z86.79 Aortic vavle repair & aortic root replacement @ [facility] 02/23/16; History of aortic aneurysm repair Z98.890, Z86.79 32mm Valsalva graft History of cardiac radiofrequency ablation Z98.890 1997- for atrial fibrillation History of knee surgery Z98.890 History of tonsillectomy Z90.89 History of vasectomy Z98.52 H/O aortic valve repair (Inactive) Z98.890, Z86.79 Aortic vavle repair & aortic root replacement @ [facility] 02/23/16; Surgical History: - - Aortic aneurysm repair, vasectomy, tonsillectomy, knee surgery (patella tendon reattachment) Smoking Status: Former smoker - *Family History Paternal Family History: Family History (Last Updated 02/10/20 @ 13:20 by Samantha Esparza) Father Hypertension Heart disease Mother Bladder cancer High cholesterol History Items: Heart Disease Review of Systems Constitutional: Denies: Anorexia, Fever Cardiovascular: Denies: Chest Pain Respiratory: Denies: Cough Gastrointestinal: Denies: Abdominal Pain, Nausea, Vomiting Skin: Denies: Dryness, Jaundice Neurological: Denies: Balance problems Hematologic/ Lymphatic: Denies: Anemia VTE Information - Inpt Only VTE Present on Admission: No VTE Mechan Device Prophylaxis: SCD's Patient Problems: Active and Suspected Problems (Last Reviewed 02/10/20 @ 13:19 by Samantha Esparza) Biliary sludge (Acute) Biliary dyskinesia (Acute) - Physical Exam Vitals/I&O's: Vital Signs Temp Pulse Resp BP Pulse Ox 96.9 F L 70 16 117/79 98 03/12/20 06:31 03/12/20 06:31 03/12/20 06:31 03/12/20 06:31 03/12/20 06:31 Oxygen Delivery Method Room Air Weight: 266 lb 1.567 oz Body Mass Index (BMI) 31.5 General: Alert, Oriented x3 HEENT: Atraumatic Neck: Supple Lungs: Normal air movement, No rales Cardiovascular: Regular rate, Regular Rhythm Abdomen: Soft, Non Tender, Non-Distended Extremities: No clubbing Skin: No rashes Musculoskeletal: No Muscle Wasting Neurological: Cranial nerves II-XII grossly intact Psych/Mental Status: Normal Affect Laboratory Results 03/12/20 06:35: POC PT 13.4, INR 1.10 Current Medications Cefotetan Disodium 2 gm/ (Sodium Chloride) 100 mls @ 200 mls/hr IV PREOP ONE Stop: 03/12/20 07:29 Lactated Ringer's () 1,000 mls @ 100 mls/hr IV .Q10H CARLOS Last Admin: 03/12/20 06:43 Dose: 100 mls/hr Documented by: Assessment/Plan All Active Problems (Last Reviewed 02/10/20 @ 13:19 by Samantha Esparza) Biliary sludge (Acute) Biliary dyskinesia (Acute) Abnormal echocardiogram findings without diagnosis (Acute) Aortic valve disease (Resolved) Thoracic aortic aneurysm without rupture (Resolved) Syncope and collapse (Acute) 74-year-old male with biliary dyskinesia and sludge in the gallbladder 1. I discussed surgery versus conservative management the patient. The patient elected for surgical treatment of his biliary dyskinesia and sludge. I will perform cholangiogram during the procedure. 2. I discussed the procedure in detail with the patient. I discussed the risks, benefits, and alternatives of the procedure. I discussed the risks including but not limited to bleeding, infection, injury to surrounding organs such as the liver, bile duct, bowels. I did discuss the possibility of having to convert to an open procedure as well as the possibility that if any injuries occurred this may necessitate further surgery at a tertiary care center. We discussed the current risks associated with COVID-19. While it is understood that there is a community spread of COVID-19, the risk of dorothy COVID-19 while at [facility] ([facility]) is very low; however, the risk cannot be completely mitigated because of the community spread of the disease. We discussed in detail the risk of exposure to and/or potential harm posed by the COVID-19 virus with having a surgery/procedure at this time versus the risk of delaying the surgery/procedure. It is not possible to know either the risk of delaying the surgery or procedure or chance of getting an infection with perfect accuracy, but a joint decision was made to proceed at this time with the scheduled surgery/procedure as indicated on the consent form. Patient was notified that we will need to comply with any screening or testing [facility] wishes to perform or that surgery may be delayed for any positive results. Mikel Dick MD Pager: [facility] [address] [place] [address] [address] [place] [address] Office:
[2020-03-12 07:15] LABS: Bedside Glucose 193 mg/dL (70-110)
--- NOTE | 2020-03-12 07:30 | GALL_PTH ---
PATIENT: KAL ENCARNACION LOC: [facility] U#:[id number] AGE/SX: 74/M ROOM: RE03/12/[address]: Dr. Mikel Dick MD : 1945 BED: DIS: 03/12/2020 SPEC #: [id number] RECD: 03/12/20 09:40 STATUS: ABBIE MACRAIO #: [id number] ABENA: 03/12/20 07:[address]: Mikel Dick DEPT: SURGICAL PATHOLOGY RECD BY: Ainsley Gonzalez ENTERED: 03/12/20 11:25 SP TYPE: EPHRAIM ADAM DR: Dr. Demetrio Hanks MD Tissues: Gallbladder, NOS Procedures: Surgery Specimen Level III HEADER OPERATION: Laparoscopic cholecystectomy with IOC PRE-OP DIAGNOSIS: Biliary sludge, biliary dyskinesia TISSUE SUBMITTED: Gallbladder MICROSCOPIC DIAGNOSIS Gallbladder, cholecystectomy: Chronic cholecystitis and cholelithiasis. SJ:paige 03/13/20 MICROSCOPIC DESCRIPTION Slides are reviewed. GROSS DESCRIPTION Received is one container labeled with the patient's name and designated gallbladder. The specimen consists of a gallbladder measuring 7.5 cm in length and up to 4.5 cm in diameter. The external surface is pink-kevin, smooth and glistening for the most part. Focally it is granular, hemorrhagic and contains cautery artifact. The gallbladder contains green-yellow mucoid bile and multiple black irregular stones measuring in aggregate 1 x 0.7 x 0.3 cm and 0.1 to 0.3 cm in greatest dimension. The mucosa is bile-stained and without any mass lesions. The gallbladder wall measures up to 0.5 cm in thickness. A focal area of increased subserosal fat s noted. Mainframe Analyst sections from the gallbladder and the cystic duct are submitted in one cassette. / SJ:paige 03/12/20 TC:5 CPT: 40467
[2020-03-12] MEDS: Cefotetan 2 GM in 0.9% NS 100 ML IV (07:45)
--- NOTE | 2020-03-12 07:45 | RAD_ITS ---
STUDY: INTRAOPERATIVE CHOLANGIOGRAM. REASON FOR EXAM: Male, 74 years old. LAP GLENN WITH GRAMS FOR PAIN FLUOROSCOPY TIME (if supplied): ( 23.1 seconds ) minutes/seconds. A cine loop consisting of 149 frames was submitted. TECHNIQUE: Intraoperative cholangiogram was performed by the surgeon. Imaging was submitted. COMPARISON: None. FINDINGS: The visualized intrahepatic biliary ducts are unremarkable. The common bile duct is not dilated. No intraluminal filling defect is seen. There is free flow of contrast into the duodenum. RAD/Cholangiogram/ O R,Initial IMPRESSION: Unremarkable intraoperative cholangiogram. Electronically Signed: Carlton Barbosa, at 9:56 EDT , Service support ,
[2020-03-12] MEDS: Bupiv/Epi 0.25% 30 ML Vial (08:15)
--- NOTE | 2020-03-12 08:59 | OP.PCM_ITS ---
Problem List (1) Biliary sludge Status: Acute (2) Biliary dyskinesia Status: Acute Report of Operation Date of Procedure: 03/12/20 Pre-Operative Diagnosis: Biliary dyskinesia and gallbladder sludge Post-Operative Diagnosis: Cholelithiasis Surgery/Procedure Performed:: Laparoscopic cholecystectomy with cholangiogram Specimen's removed: Gallbladder and contents Description of Procedure: After obtaining informed consent patient was brought back to the operating room. General anesthesia was induced. The abdomen was prepped and draped in usual sterile fashion. A small midline incision was made superior to the umbilicus and deepened to the level of fascia. The fascia was elevated and incised. Next the peritoneum was elevated and incised in the same fashion. Finger sweep was performed and the Chand trocar was placed into the abdomen. The balloon was inflated. The abdomen was inflated to 15 mmHg. Next a camera was introduced into the abdomen and the abdomen was inspected. Next under direct visualization three 5-mm ports were placed one subxiphoid and 2 subcostal. Next the gallbladder was elevated and retracted toward the right shoulder. The visualization was very difficult. The gallbladder was very high in the chest cavity and he had a lot of intra-abdominal fat. A liver retractor was used to retract the inferior fat toward the cephalad region. The peritoneum was stripped from the gallbladder. The infundibulum was located and retracted laterally. Next the triangle of Calot was dissected and the cystic duct and cystic artery were identified. Cholangiograms were performed. The Urrutia clamp was used to clamp across the infundibulum and the catheter needle was inserted into the gallbladder. Under fluoroscopy contrast was instilled into the gallbladder and the common duct, cystic duct as well as proximal hepatic ducts were identified. There was good filling of the duodenum. There were no filling defects noted in the common bile duct. The clamp was removed as well as the needle and the infundibulum was grasped once more. Three hemolock clips were placed across the cystic duct. The cystic duct was then divided leaving 2 clips on the stump. The cystic artery was clipped and divided in the same fashion. The hook cautery was then used to take the gallbladder off of the gallbladder bed. Hemostasis was obtained. Gallbladder fossa was irrigated and no active bleeding or bile leakage was noted. Next the camera was introduced in the subxiphoid port. An Endopouch bag was placed through the umbilical port and the gallbladder was placed into it. The gallbladder was then removed through the umbilical incision. The camera was then reinserted through the umbilical port. The gallbladder fossa was inspected once more and noted to be hemostatic with no leaking bile. The abdomen was suctioned dry. The 5 mm ports were removed under direct visualization. The umbilical port was then removed and the air was removed from the abdomen. Next using an 0 Vicryl suture the umbilical fascia was closed in a [id number] fashion. The umbilical port site was irrigated local anesthetic was administered to all the incisions. All the incisions were closed with interrupted subcuticular 4-0 Monocryl sutures followed by Steri- Strips and dressings. The patient was awoken and taken to PACU in stable condition. - Admit VTE Documentation VTE Mechan Device Prophylaxis: SCD's
--- NOTE | 2020-03-12 09:03 | PCM.DC.GB ---
Discharge Diet: Light diet - advance as tolerated Discharge Activity: Return to Normal Activity, May Not Drive - for 2-3 days or while taking narcotic pain medicataions., - - Do not drive, work heavy equipment or sign legal documents for 24 hours. May shower in (days): 1 - with the bandage in place. Lifting Restrictions: 20 lbs for 2 weeks Additional Activity Instructions:: Pain medication may cause nausea. You should typically eat light foods as you take your pain medications. Pain medication may also cause constipation. If this is a problem for you, please discuss with your doctor. Call your doctor if your incision/area has: Continuous Slow Oozing, Sudden Increased Bleeding, Increased Pain/ Swelling, Increased Redness, Foul Smelling Discharge, Fever of 101 or Higher Call your doctor if you observe: Fever of 101 or Higher Suture Line Care: Avoid Pulling/Pushing, Avoid Pinching/Bending Additional Dressing/Incision Instructions:: Leave operative bandaids on for 2 days. When you remove dressing, leave Steri-Strips on until your follow-up appointment, or until the Steri-Strips fall off on their own. Additional Instructions: Resume coumadin monday Allergies/Adverse Reactions: Allergies No Known Allergies Allergy (Verified 02/12/20 08:13) Medications to take at Discharge Pravastatin [Pravachol] 40 mg PO QHS 03/09/16 losartan 100 mg-hydrochlorothiazide 25 mg tablet 1 tab PO DAILY #90 tab 12/17/18 levothyroxine 150 mcg tablet 150 mcg PO DAILY 04/17/19 L. gasseri-B. bifidum-B longum 1.5 billion cell capsule 1 cap PO DAILY cap 10/24/19 docusate sodium 100 mg capsule 100 mg PO DAILY PRN 10/24/19 metformin 1,000 mg tablet 1,000 mg PO BID 10/24/19 prednisone 5 mg tablet 10 mg PO DAILY 10/24/19 tamsulosin 0.4 mg capsule 0.8 mg PO DAILY cap 10/24/19 metoprolol tartrate 50 mg tablet 50 mg PO BID #180 tab 12/02/19 Warfarin Sodium 3 mg PO SUWE 02/12/20 Warfarin Sodium [Coumadin] 6 mg PO MOTUTHFR 02/12/20 Oxycodone HCl/Acetaminophen [Percocet 5-325 mg Tablet] 1 - 2 tab PO Q6H PRN PRN 5 Days #30 tablet 03/12/20 The following prescriptions were given: Oxycodone HCl/Acetaminophen [Percocet 5-325 mg Tablet] 1 - 2 tab PO Q6H PRN PRN 5 Days #30 tablet PRN Reason: Pain Score 4-10/10 Transmission Status: Sent to [facility] Test Results: Test results from this visit will be discussed in further detail at your follow-up appointment, if applicable. Please Follow Up With: Mikel Dick MD When: Please call to schedule 2 week follow up appointment. [phone]
== END 2020-03-12 10:51 | disposition home or self-care (01) ==
LOC: SDC 06:01 → AC 06:01
PROVIDERS: Anesthesiology; PCP Family Medicine Geriatric Medicine; Referring Provider Surgery; Visit Provider Surgery
PROC: (CPT 47610; principal; 2020-03-12 07:10)
DX: K80.10 Calculus of gallbladder with chronic cholecystitis without obstruction (principal); I25.10 Atherosclerotic heart disease of native coronary artery without angina pectoris; I48.0 Paroxysmal atrial fibrillation; I10 Essential (primary) hypertension; E03.9 Hypothyroidism, unspecified; E78.00 Pure hypercholesterolemia, unspecified; N40.0 Benign prostatic hyperplasia without lower urinary tract symptoms; Z95.2 Presence of prosthetic heart valve; Z79.01 Long term (current) use of anticoagulants; Z79.84 Long term (current) use of oral hypoglycemic drugs; Z79.899 Other long term (current) drug therapy; Z87.891 Personal history of nicotine dependence; Z11.59 Encounter for screening for other viral diseases
CPT/HCPCS: 47563; 36416; 74300; 76000; 82962; 85610; 87635; 88304; C9803; J7120; J2405; U0003

== ENCOUNTER → 2020-03-31 14:07 | Outpatient (CLI) | payer MEDICARE, SELFPAY ==
[2019-10-24 09:28] VITALS: BMI 32.0
[2020-03-12 06:31] VITALS: BMI 31.5
[2020-03-31 15:10] LABS: Absolute Lymphocyte Count 0.73 X10^3/uL (0.83-4.51); Absolute Neutrophil Count 6.5 X10^3/uL (2.0-7.7); Basophil# 0.03 X10^3/uL; Basophil% 0.4 % (0-1); Eosinophil# 0.09 X10^3/uL; Eosinophils% 1.1 % (0-5); Hematocrit 40.2 % (40-54); Hemoglobin 13.1 g/dL (13.0-16.5); Lymphocyte # 0.73 X10^3/ul (4.0); Lymphocyte % 9.2 % (19-41); Mean Corp Hgb Conc 32.6 g/dL (32-36); Mean Corpuscular Volume 88.9 fL (80-94); Mean Platelet Vol. 10.8 fl (6.2-12.0); Monocyte# 0.49 X10^3/uL; Monocyte% 6.2 % (0-10); NRBC Flagged by Analyzer 0 % (0-5); Neutrophil # 6.51 X10^3/uL (2.7-7.7); Neutrophil % 82.1 % (47-70); Platelet Count 227 K/mm3 (150-450); RBC Distribution Width CV 14.2 % (11.6-14.6); RBC Distribution Width SD 45.7 fl (35.1-43.9); Red Blood Count 4.52 M/mm3 (4.6-6.2); White Blood Count 7.9 K/mm3 (4.4-11.0)
[2020-03-31 16:06] LABS: ALB/GLOB Ratio 1.1 RATIO (0.9-2.4); AST(SGOT) 16 U/L (15-37); Alanine Aminotransfer ALT/SGPT 25 U/L (16-61); Albumin, Serum 3.6 g/dL (3.2-5.0); Alkaline Phosphatase 65 U/L (45-117); Anion Gap 5 (5-15); BUN 21 mg/dL (7-18); Calcium,Total 8.9 mg/dL (8.5-10.1); Chloride 103 mmol/L (98-107); EST Glomerular Filtration Rate 77 mL/min (>60); Est Glom Filt Rate - Afr Amer 94 mL/min (>60); Globulin 3.2 g/dL (2.2-4.2); Glucose 144 mg/dL (74-106); Potassium 4.1 mmol/L (3.5-5.1); Protein, Total 6.8 g/dL (6.4-8.2); Sodium Level 137 mmol/L (136-145); Thyroid Stim Hormone (TSH) 0.31 uIU/mL (0.358-3.74)
[2020-04-01 09:11] LABS: Vitamin D,25 Hydroxy 24.8 ng/mL
== END ==
PROVIDERS: PCP Family Medicine Geriatric Medicine; Visit Provider Family Medicine Geriatric Medicine
DX: E55.9 Vitamin D deficiency, unspecified (principal); F52.8 Other sexual dysfunction not due to a substance or known physiological condition; I10 Essential (primary) hypertension; N18.30 Chronic kidney disease, stage 3 unspecified
CPT/HCPCS: 36415; 80053; 82306; 84403; 84443; 85025

== ENCOUNTER → 2020-04-07 10:04 | Outpatient (CLI) | payer MEDICARE, SELFPAY ==
[2020-03-12 06:31] VITALS: BMI 31.5
--- NOTE | 2020-04-07 10:07 | US_ITS ---
HISTORY: ABNL LFTS S/P GLENN COMPARISON: 01/08/2020 TECHNIQUE: Sonographic images of the right upper quadrant of the abdomen using grayscale and color Doppler imaging. Number of images including paperwork: 79 FINDINGS: LIVER: Unremarkable. Right lobe measures 14.5 cm. GALLBLADDER: Surgically absent. BILE DUCTS: No significant biliary dilatation. CBD 4 mm. PANCREAS: The visualized portions of the head and adjacent body appear echogenic but otherwise unremarkable. Majority of the body of the pancreas in the tail of the pancreas are obscured by bowel gas. RIGHT KIDNEY: Normal size measuring 12.2 cm. 2.5 cm right renal cyst. AORTA: Unremarkable visualized portions of the aorta. INFERIOR VENA CAVA: Unremarkable visualized portions of the inferior vena cava. FREE FLUID: None detected. US/Abdomen Limited IMPRESSION: No significant biliary dilatation. No acute findings. at 0630 Reported and signed by: Irma Pizano MD Electronically Signed: Irma Pizano MD at 6:30 EDT Tel , Service support ,
== END ==
PROVIDERS: PCP Family Medicine Geriatric Medicine; Referring Provider Family Medicine Geriatric Medicine; Visit Provider Family Medicine Geriatric Medicine
DX: K76.9 Liver disease, unspecified (principal)
CPT/HCPCS: 76705

== ENCOUNTER → 2020-04-27 15:43 | Outpatient (CLI) | payer MEDICARE, SELFPAY ==
[2020-03-12 06:31] VITALS: BMI 31.5
[2020-04-27 16:59] LABS: Absolute Lymphocyte Count 0.86 X10^3/uL (0.83-4.51); Absolute Neutrophil Count 7.2 X10^3/uL (2.0-7.7); Basophil# 0.05 X10^3/uL; Basophil% 0.6 % (0-1); Eosinophil# 0.12 X10^3/uL; Eosinophils% 1.4 % (0-5); Hematocrit 41.2 % (40-54); Hemoglobin 13.2 g/dL (13.0-16.5); Lymphocyte # 0.86 X10^3/ul (4.0); Lymphocyte % 9.7 % (19-41); Mean Corpuscular Hgb 29.3 pg (27.0-32.0); Mean Corpuscular Volume 91.6 fL (80-94); Mean Platelet Vol. 10.6 fl (6.2-12.0); Monocyte# 0.57 X10^3/uL; Monocyte% 6.4 % (0-10); NRBC Flagged by Analyzer 0 % (0-5); Neutrophil # 7.18 X10^3/uL (2.7-7.7); Platelet Count 228 K/mm3 (150-450); RBC Distribution Width CV 14.3 % (11.6-14.6); RBC Distribution Width SD 47.8 fl (35.1-43.9); White Blood Count 8.9 K/mm3 (4.4-11.0)
[2020-04-27 17:10] LABS: International Normalized Ratio 2.6
[2020-04-27 17:13] LABS: Anion Gap 6 (5-15); BUN 19 mg/dL (7-18); BUN/Creat Ratio 19.1 RATIO (10-20); CRP 5.15 mg/L (0.0-3.0); Calcium,Total 8.8 mg/dL (8.5-10.1); Chloride 103 mmol/L (98-107); EST Glomerular Filtration Rate 78 mL/min (>60); Est Glom Filt Rate - Afr Amer 94 mL/min (>60); Glucose 150 mg/dL (74-106); Potassium 4.1 mmol/L (3.5-5.1); Sodium Level 139 mmol/L (136-145)
[2020-04-27 17:20] LABS: Erythrocyte Sedimentation Rate 3 mm/hr (0-20)
== END ==
PROVIDERS: PCP Family Medicine Geriatric Medicine; Visit Provider Family Medicine Geriatric Medicine
DX: M35.3 Polymyalgia rheumatica (principal); I48.0 Paroxysmal atrial fibrillation; Z79.01 Long term (current) use of anticoagulants
CPT/HCPCS: 36415; 80048; 85025; 85610; 85652; 86140

== ENCOUNTER → 2020-05-04 12:38 | Outpatient (CLI) | payer MEDICARE, SELFPAY ==
[2020-03-12 06:31] VITALS: BMI 31.5
--- NOTE | 2020-05-04 12:40 | CDU_ITS ---
Reason For Study: CAROTID STENOSIS Rt. Velocities/BP Lt. Velocities/BP Prox CCA 89.3/18.1 cm/sec. Prox CCA 84.3/15.5 cm/sec. Mid CCA 85.7/12.6 cm/sec. Mid CCA 78.1/17.9 cm/sec. Dist CCA 69.9/14.6 cm/sec. Dist CCA 64.6/14.2 cm/sec. Prox ICA 71.1/22.0 cm/sec. Prox ICA 50.4/12.0 cm/sec. Mid ICA 87.1/29.3 cm/sec. Mid ICA 87.9/24.1 cm/sec. Dist ICA 109.4/34.5 cm/sec. Dist ICA 80.6/24.1 cm/sec. Rt. ICA/CCA = 109.4/89.3=1.2. Lt. ICA/CCA = 87.9/84.3=1.0. Prox ECA 83.4/9.7 cm/sec. Prox ECA 91.6/9.3 cm/sec. Rt. Vert. 54.8/14.2 cm/sec. Lt. Vert. 47.8/11.9 cm/sec. Right Extracranial There is intimal thickening but no significant atherosclerotic plaque noted in the right common carotid artery. There is intimal thickening but no significant atherosclerotic plaque noted in the right internal carotid artery. There is homogeneous, smooth atherosclerotic plaque noted in the right external carotid artery. Antegrade flow is noted in the right vertebral artery. Left Extracranial There is intimal thickening but no significant atherosclerotic plaque noted in the left common carotid artery. There is intimal thickening but no significant atherosclerotic plaque noted in the left internal carotid artery. There is heterogeneous, irregular atherosclerotic plaque noted in the left external carotid artery. Antegrade flow is noted in the left vertebral artery. There is heterogeneous, smooth atherosclerotic plaque noted in the left bulb. Interpretation Summary Intimal thickening but no hemodynamically significant plaque proximal right internal carotid artery with less than 50% stenosis. Less than 50% stenosis right external carotid Smooth plaque but no hemodynamically significant plaque proximal left internal carotid artery with less than 50% stenosis. Irregular plaque with shadowing at the proximal left external carotid with less than 50% stenosis Patent and antegrade vertebrals bilaterally Ordering Physician: Demetrio Hanks Referring Physician: Demetrio Hanks Chi Performed By: Kady Manley, [place], RVT
== END ==
PROVIDERS: PCP Family Medicine Geriatric Medicine; Referring Provider Family Medicine Geriatric Medicine; Visit Provider Family Medicine Geriatric Medicine
DX: I65.23 Occlusion and stenosis of bilateral carotid arteries (principal)
CPT/HCPCS: 93880

== ENCOUNTER → 2020-07-06 09:16 | Outpatient (CLI) | payer MEDICARE, SELFPAY ==
[2020-03-12 06:31] VITALS: BMI 31.5
[2020-07-06 16:48] LABS: Absolute Lymphocyte Count 0.78 X10^3/uL (0.83-4.51); Absolute Neutrophil Count 7.2 X10^3/uL (2.0-7.7); Basophil# 0.04 X10^3/uL; Basophil% 0.5 % (0-1); Eosinophil# 0.09 X10^3/uL; Hematocrit 42.3 % (40-54); Hemoglobin 13.5 g/dL (13.0-16.5); Lymphocyte # 0.78 X10^3/ul (4.0); Lymphocyte % 8.9 % (19-41); Mean Corp Hgb Conc 31.9 g/dL (32-36); Mean Corpuscular Hgb 29.3 pg (27.0-32.0); Mean Platelet Vol. 10.8 fl (6.2-12.0); Monocyte# 0.59 X10^3/uL; Monocyte% 6.7 % (0-10); NRBC Flagged by Analyzer 0 % (0-5); Neutrophil # 7.19 X10^3/uL (2.7-7.7); Platelet Count 232 K/mm3 (150-450); RBC Distribution Width CV 13.3 % (11.6-14.6); RBC Distribution Width SD 45.1 fl (35.1-43.9); White Blood Count 8.8 K/mm3 (4.4-11.0)
[2020-07-06 16:59] LABS: ALB/GLOB Ratio 1.2 RATIO (0.9-2.4); AST(SGOT) 10 U/L (15-37); Alanine Aminotransfer ALT/SGPT 24 U/L (16-61); Albumin, Serum 3.6 g/dL (3.2-5.0); Alkaline Phosphatase 73 U/L (45-117); Anion Gap 6 (5-15); BUN 15 mg/dL (7-18); BUN/Creat Ratio 14.7 RATIO (10-20); Chloride 102 mmol/L (98-107); Creatinine, Serum 1.02 mg/dL (0.70-1.30); EST Glomerular Filtration Rate 76 mL/min (>60); Est Glom Filt Rate - Afr Amer 91 mL/min (>60); Globulin 3.1 g/dL (2.2-4.2); Glucose 134 mg/dL (74-106); Potassium 4.3 mmol/L (3.5-5.1); Protein, Total 6.7 g/dL (6.4-8.2); Sodium Level 140 mmol/L (136-145); Thyroid Stim Hormone (TSH) 4.23 uIU/mL (0.358-3.74)
[2020-07-06 17:48] LABS: Vitamin D,25 Hydroxy 15.5 ng/mL
== END ==
PROVIDERS: PCP Family Medicine Geriatric Medicine; Visit Provider Family Medicine Geriatric Medicine
DX: I10 Essential (primary) hypertension (principal); E55.9 Vitamin D deficiency, unspecified; F52.8 Other sexual dysfunction not due to a substance or known physiological condition
CPT/HCPCS: 36415; 80053; 82306; 84403; 84443; 85025

== ENCOUNTER 2020-09-22 13:50 | Outpatient (RCR) | payer MEDICARE, SELFPAY ==
[2020-03-12 06:31] VITALS: BMI 31.5
[2020-07-17 09:51] VITALS: BMI 32.9
[2020-09-22 14:46] LABS: PSA,Total- Diagnostic 0.29 ng/mL (0.0-4.0)
== END 2020-09-22 18:00 | disposition home or self-care (01) ==
LOC: LAB 13:50
PROVIDERS: Family Provider Family Medicine Geriatric Medicine; PCP Family Medicine Geriatric Medicine; Referring Provider Internal Medicine Cardiovascular Disease; Visit Provider Internal Medicine Cardiovascular Disease
DX: I48.0 Paroxysmal atrial fibrillation (principal); Z85.46 Personal history of malignant neoplasm of prostate; Z79.01 Long term (current) use of anticoagulants
CPT/HCPCS: 36415; 84153; 85610

== ENCOUNTER → 2020-10-05 13:50 | Outpatient (CLI) | payer MEDICARE, SELFPAY ==
[2020-07-17 09:51] VITALS: BMI 32.9
[2020-10-05 15:45] LABS: Absolute Lymphocyte Count 0.74 X10^3/uL (0.83-4.51); Basophil# 0.04 X10^3/uL; Basophil% 0.4 % (0-1); Eosinophil# 0.09 X10^3/uL; Hematocrit 42.7 % (40-54); Hemoglobin 13.4 g/dL (13.0-16.5); Lymphocyte # 0.74 X10^3/ul (4.0); Lymphocyte % 7.8 % (19-41); Mean Corp Hgb Conc 31.4 g/dL (32-36); Mean Corpuscular Hgb 28.9 pg (27.0-32.0); Mean Platelet Vol. 11.5 fl (6.2-12.0); Monocyte# 0.48 X10^3/uL; Monocyte% 5.1 % (0-10); NRBC Flagged by Analyzer 0 % (0-5); Neutrophil % 84.7 % (47-70); Platelet Count 253 K/mm3 (150-450); RBC Distribution Width CV 13.4 % (11.6-14.6); RBC Distribution Width SD 45.9 fl (35.1-43.9); Red Blood Count 4.64 M/mm3 (4.6-6.2); White Blood Count 9.4 K/mm3 (4.4-11.0)
[2020-10-05 16:04] LABS: Vitamin D,25 Hydroxy 16.8 ng/mL
[2020-10-05 16:15] LABS: ALB/GLOB Ratio 1.1 RATIO (0.9-2.4); AST(SGOT) 10 U/L (15-37); Alanine Aminotransfer ALT/SGPT 18 U/L (16-61); Albumin, Serum 3.7 g/dL (3.2-5.0); Alkaline Phosphatase 74 U/L (45-117); Anion Gap 4 (5-15); BUN 18 mg/dL (7-18); BUN/Creat Ratio 15.9 RATIO (10-20); Calcium,Total 8.9 mg/dL (8.5-10.1); Chloride 101 mmol/L (98-107); Creatinine, Serum 1.13 mg/dL (0.70-1.30); EST Glomerular Filtration Rate 67 mL/min (>60); Est Glom Filt Rate - Afr Amer 81 mL/min (>60); Globulin 3.3 g/dL (2.2-4.2); Glucose 233 mg/dL (74-106); Potassium 4.2 mmol/L (3.5-5.1); Sodium Level 136 mmol/L (136-145); Thyroid Stim Hormone (TSH) 5.46 uIU/mL (0.358-3.74)
== END ==
PROVIDERS: PCP Family Medicine Geriatric Medicine; Visit Provider Family Medicine Geriatric Medicine
DX: E03.9 Hypothyroidism, unspecified (principal); E11.65 Type 2 diabetes mellitus with hyperglycemia; I10 Essential (primary) hypertension; E23.6 Other disorders of pituitary gland; E55.9 Vitamin D deficiency, unspecified
CPT/HCPCS: 36415; 80053; 82306; 84403; 84443; 85025

== ENCOUNTER 2020-10-14 13:47 | Outpatient (RCR) | payer MEDICARE, SELFPAY ==
[2020-07-17 09:51] VITALS: BMI 32.9
[2020-09-29 16:12] LABS: International Normalized Ratio 1.9; Prothrombin Time (Protime)PT. 21.4 SECONDS (11.7-14.9)
[2020-10-14 14:54] LABS: International Normalized Ratio 3.5; Prothrombin Time (Protime)PT. 34.2 SECONDS (11.7-14.9)
== END 2020-10-14 18:00 | disposition home or self-care (01) ==
LOC: LAB 13:47
PROVIDERS: Family Provider Family Medicine Geriatric Medicine; PCP Family Medicine Geriatric Medicine; Referring Provider Internal Medicine Cardiovascular Disease; Visit Provider Internal Medicine Cardiovascular Disease
DX: I48.0 Paroxysmal atrial fibrillation (principal); Z79.01 Long term (current) use of anticoagulants
CPT/HCPCS: 36415; 85610

== ENCOUNTER 2020-11-09 14:28 | Outpatient (RCR) | payer MEDICARE, SELFPAY ==
[2020-07-17 09:51] VITALS: BMI 32.9
[2020-11-09 15:20] LABS: International Normalized Ratio 2.4; Prothrombin Time (Protime)PT. 25.6 SECONDS (11.7-14.9)
== END 2020-11-09 18:00 | disposition home or self-care (01) ==
LOC: LAB 14:28
PROVIDERS: Family Provider Family Medicine Geriatric Medicine; PCP Family Medicine Geriatric Medicine; Referring Provider Internal Medicine Cardiovascular Disease; Visit Provider Internal Medicine Cardiovascular Disease
DX: I48.0 Paroxysmal atrial fibrillation (principal); Z79.01 Long term (current) use of anticoagulants
CPT/HCPCS: 36415; 85610

== ENCOUNTER 2020-12-07 14:34 | Outpatient (RCR) | payer MEDICARE, SELFPAY ==
[2020-07-17 09:51] VITALS: BMI 32.9
[2020-12-07 15:38] LABS: International Normalized Ratio 3.2; Prothrombin Time (Protime)PT. 32.3 SECONDS (11.7-14.9)
== END 2020-12-07 18:00 | disposition home or self-care (01) ==
LOC: LAB 14:34
PROVIDERS: Family Provider Family Medicine Geriatric Medicine; PCP Family Medicine Geriatric Medicine; Referring Provider Internal Medicine Cardiovascular Disease; Visit Provider Internal Medicine Cardiovascular Disease
DX: I48.0 Paroxysmal atrial fibrillation (principal); Z79.01 Long term (current) use of anticoagulants
CPT/HCPCS: 36415; 85610

== ENCOUNTER → 2020-12-18 09:41 | Outpatient (CLI) | payer MEDICARE, SELFPAY ==
[2020-07-17 09:51] VITALS: BMI 32.9
--- NOTE | 2020-12-18 09:42 | ECHOCS_ITS ---
Reason For Study: Valve replacement eval Procedure This was a 2D Doppler, Color Flow transthoracic echocardiogram. The study was technically difficult. Contrast injection was performed. Exam performed in department. Left Ventricle Normal LV size. Moderate concentric left ventricular hypertrophy. Left ventricular systolic function is normal. The estimated ejection fraction is 55 %. No evidence for diastolic dysfunction. No regional wall motion abnormalities noted. Right Ventricle Normal RV size. Normal systolic function. Atria The left atrium is moderately enlarged. The right atrium is mildly enlarged. No doppler evidence for ASD. Mitral Valve There is mild mitral annular calcification. Extension of the mitral annular calcification on the base of the posterior mitral valve leaflet. Trivial mitral valve insufficiency. Tricuspid Valve Normal tricuspid valve. Trivial tricuspid valve insufficiency. Right ventricular systolic pressure estimated to be 29 mmHg. Aortic Valve Trisinus/trileaflet aortic valve. Mild diffuse aortic valve thickening. Mild focal aortic valve calcification. Pulmonic Valve The pulmonic valve is not well visualized. Trivial pulmonic valve insufficiency. Great Vessels Aortic root repair. Pericardium/Pleural Epicardial fat. Medication 22 gauge I.V. with prn adaptor inserted into right arm. Diluted definity 3ml given slow IV push to enhance endocardial definition. MMode/2D Measurements & Calculations LVIDd: 4.5 cm IVSd: 1.3 cm LVOT diam: 2.1 cm LVIDs: 2.3 cm LVPWd: 1.6 cm FS: 50.2 % LVOT area: 3.6 cm2 Ao root diam: 3.6 cm LAV(MOD-bp): 88.8 ml LA A4 area: 25.4 cm2 LA dimension: 4.6 cm LAV(MOD-bp) Indexed: 34.5 ml/m2 LAV(MOD-sp2): 88.3 ml LAV(MOD-sp4): 83.1 ml Time Measurements MV dec time: 0.17 sec Doppler Measurements & Calculations MV E max dwain: 90.5 cm/sec Lat Peak E' Dwain: 13.5 cm/sec Med Peak E' Dwain: 11.8 cm/sec E/E' lat: 6.7 E/E' med: 7.7 Ao V2 max: 108.9 cm/sec LV V1 max: 87.6 cm/sec SV(LVOT): 57.2 ml Ao max P.8 mmHg LV V1 max P.1 mmHg Ao V2 mean: 75.0 cm/sec LV V1 mean P.5 mmHg Ao mean P.6 mmHg LV V1 mean: 57.5 cm/sec Ao V2 VTI: 19.0 cm LV V1 VTI: 15.8 cm ELTON(I,D): 3.0 cm2 ELTON(V,D): 2.9 cm2 PA V2 max: 82.4 cm/sec TR max dwain: 257.1 cm/sec TR max P.4 mmHg ECHO/Echo Complete W/ Contrast Interpretation Summary The study was technically difficult. Contrast injection was performed. Left ventricular systolic function is normal. The estimated ejection fraction is 55 %. Moderate concentric left ventricular hypertrophy. The left atrium is moderately enlarged. The right atrium is mildly enlarged. There is mild mitral annular calcification. Extension of the mitral annular calcification on the base of the posterior mitr al valve leaflet. Trivial mitral valve insufficiency. Trivial tricuspid valve insufficiency. Mild diffuse aortic valve thickening. Mild focal aortic valve calcification. Trivial pulmonic valve insufficiency. Aortic root repair. Epicardial fat. Right ventricular systolic pressure estimated to be 29 mmHg. No evidence for diastolic dysfunction. 2D echocardiograhic images demonstrate the appearance of a vague mobile echoden sity (approximately 0.6 cm x 0.7 cm) associated with the aortic valve (non coronary cusp) with a di fferential diagnosis including vegetation, thrombus, however, other etiologies of mobile mass lesion s cannot be excluded. Comment: As compared to the previous transthoracic echocardiogram from 04-05-20 19 with respect to the aforementioned concerns of a vague mobile echodensity associated with the a ortic valve area there appears to be no significant change. Also of note, the patient underwent transesophageal echocardiogram on 04-30-2019 which demonstrated findings compatible with echocar diographic artifact/reverberation superimposed upon findings compatible with mild diffuse thickening and mild focal calcification of the aortic valve apparatus. Ordering Physician: Marky Cosme Referring Physician: Demetrio Hanks Chi Performed By: Robin Klein RCS
== END ==
PROVIDERS: PCP Family Medicine Geriatric Medicine; Referring Provider Internal Medicine Cardiovascular Disease; Visit Provider Internal Medicine Cardiovascular Disease
DX: I25.10 Atherosclerotic heart disease of native coronary artery without angina pectoris (principal)
CPT/HCPCS: 93306; Q9957; A4216; C8929; J3490

== ENCOUNTER → 2020-12-21 13:12 | Outpatient (CLI) | payer MEDICARE, SELFPAY ==
[2020-07-17 09:51] VITALS: BMI 32.9
--- NOTE | 2020-12-21 13:26 | RAD_ITS ---
STUDY: X-RAY - ABDOMEN/PELVIS REASON FOR EXAM: Male, 75 years old. Diarrhea, unspecified TECHNIQUE: AP supine and upright views of the abdomen and pelvis. COMPARISON: None. FINDINGS: Normal visualized lung bases. There is an unremarkable bowel gas pattern. There is no demonstrated free abdominal air. The visualized liver, spleen and kidneys are grossly normal in size and morphology. Normal soft tissue structures. Mild extra scoliosis lumbar spine with diffuse degenerative disc disease. RAD/Abd Inc Decub and/or Erect IMPRESSION: Normal x-ray examination of the abdomen and pelvis. Electronically Signed: Alan Claudio MD at 8:48 EDT Tel , Service support ,
== END ==
PROVIDERS: PCP Family Medicine Geriatric Medicine; Referring Provider Family Medicine Geriatric Medicine; Visit Provider Family Medicine Geriatric Medicine
DX: R19.7 Diarrhea, unspecified (principal)
CPT/HCPCS: 74019

== ENCOUNTER → 2021-01-05 12:59 | Outpatient (CLI) | payer MEDICARE, SELFPAY ==
[2020-12-30 10:51] VITALS: BMI 29.5
[2021-01-05 17:14] LABS: Absolute Lymphocyte Count 0.76 X10^3/uL (0.83-4.51); Basophil# 0.04 X10^3/uL; Basophil% 0.4 % (0-1); Eosinophil# 0.13 X10^3/uL; Eosinophils% 1.4 % (0-5); Hematocrit 40.6 % (40-54); Hemoglobin 12.7 g/dL (13.0-16.5); Lymphocyte # 0.76 X10^3/ul (0.83-4.51); Mean Corp Hgb Conc 31.3 g/dL (32-36); Mean Corpuscular Volume 89.4 fL (80-94); Mean Platelet Vol. 11.6 fl (6.2-12.0); Monocyte# 0.52 X10^3/uL; Monocyte% 5.5 % (0-10); NRBC Flagged by Analyzer 0 % (0-5); Neutrophil % 84.3 % (47-70); Platelet Count 307 K/mm3 (150-450); RBC Distribution Width CV 12.6 % (11.6-14.6); RBC Distribution Width SD 41.2 fl (35.1-43.9); Red Blood Count 4.54 M/mm3 (4.6-6.2); White Blood Count 9.5 K/mm3 (4.4-11.0)
[2021-01-05 17:30] LABS: Prothrombin Time (Protime)PT. 49.1 SECONDS (11.7-14.9)
[2021-01-05 17:36] LABS: International Normalized Ratio 5.5
[2021-01-05 17:39] LABS: Vitamin D,25 Hydroxy 26.4 ng/mL
[2021-01-05 17:45] LABS: AST(SGOT) 16 U/L (15-37); Alanine Aminotransfer ALT/SGPT 19 U/L (16-61); Albumin, Serum 3.6 g/dL (3.2-5.0); Alkaline Phosphatase 76 U/L (45-117); Anion Gap 8 (5-15); BUN 19 mg/dL (7-18); BUN/Creat Ratio 16.4 RATIO (10-20); Calcium,Total 9.2 mg/dL (8.5-10.1); Chloride 102 mmol/L (98-107); Creatinine, Serum 1.16 mg/dL (0.70-1.30); EST Glomerular Filtration Rate 65 mL/min (>60); Est Glom Filt Rate - Afr Amer 79 mL/min (>60); Globulin 3.7 g/dL (2.2-4.2); Glucose 158 mg/dL (74-106); Potassium 4.6 mmol/L (3.5-5.1); Protein, Total 7.3 g/dL (6.4-8.2); Sodium Level 139 mmol/L (136-145); Thyroid Stim Hormone (TSH) 0.09 uIU/mL (0.358-3.74)
== END ==
PROVIDERS: PCP Family Medicine Geriatric Medicine; Visit Provider Family Medicine Geriatric Medicine
DX: E11.65 Type 2 diabetes mellitus with hyperglycemia (principal); E23.6 Other disorders of pituitary gland; E55.9 Vitamin D deficiency, unspecified; I10 Essential (primary) hypertension; Z79.01 Long term (current) use of anticoagulants
CPT/HCPCS: 36415; 80053; 82306; 84403; 84443; 85025; 85610

== ENCOUNTER 2021-01-09 10:31 | Outpatient (RCR) | payer MEDICARE, SELFPAY ==
[2020-07-17 09:51] VITALS: BMI 32.9
[2020-12-30 10:51] VITALS: BMI 29.5
[2021-01-09 11:50] LABS: International Normalized Ratio 2.5; Prothrombin Time (Protime)PT. 26.5 SECONDS (11.7-14.9)
== END 2021-01-09 18:00 | disposition home or self-care (01) ==
LOC: LAB 10:31
PROVIDERS: Family Provider Family Medicine Geriatric Medicine; PCP Family Medicine Geriatric Medicine; Referring Provider Internal Medicine Cardiovascular Disease; Visit Provider Internal Medicine Cardiovascular Disease
DX: I48.0 Paroxysmal atrial fibrillation (principal); Z79.01 Long term (current) use of anticoagulants
CPT/HCPCS: 36415; 85610

== ENCOUNTER 2021-02-15 13:14 | Outpatient (RCR) | payer MEDICARE, SELFPAY ==
[2020-12-30 10:51] VITALS: BMI 29.5
[2021-01-25 15:56] LABS: International Normalized Ratio 1.9; Prothrombin Time (Protime)PT. 21.3 SECONDS (11.7-14.9)
[2021-02-15 13:48] LABS: International Normalized Ratio 2.2; Prothrombin Time (Protime)PT. 23.3 SECONDS (11.7-14.9)
== END 2021-02-15 18:00 | disposition home or self-care (01) ==
LOC: LAB 13:14
PROVIDERS: Family Provider Family Medicine Geriatric Medicine; PCP Family Medicine Geriatric Medicine; Referring Provider Internal Medicine Cardiovascular Disease; Visit Provider Internal Medicine Cardiovascular Disease
DX: I48.0 Paroxysmal atrial fibrillation (principal); Z79.01 Long term (current) use of anticoagulants
CPT/HCPCS: 36415; 85610

== ENCOUNTER → 2021-04-05 14:10 | Outpatient (CLI) | payer MEDICARE, SELFPAY ==
[2021-04-05 17:05] LABS: Absolute Lymphocyte Count 0.76 X10^3/uL (0.83-4.51); Absolute Neutrophil Count 7.3 X10^3/uL (2.0-7.7); Basophil# 0.06 X10^3/uL; Basophil% 0.7 % (0-1); Eosinophil# 0.11 X10^3/uL; Eosinophils% 1.2 % (0-5); Hematocrit 41.3 % (40-54); Hemoglobin 13.1 g/dL (13.0-16.5); International Normalized Ratio 2.2; Lymphocyte # 0.76 X10^3/ul (0.83-4.51); Lymphocyte % 8.6 % (19-41); Mean Corp Hgb Conc 31.7 g/dL (32-36); Mean Corpuscular Hgb 28.5 pg (27.0-32.0); Mean Platelet Vol. 10.9 fl (6.2-12.0); Monocyte# 0.56 X10^3/uL; Monocyte% 6.3 % (0-10); NRBC Flagged by Analyzer 0 % (0-5); Neutrophil # 7.28 X10^3/uL (2.7-7.7); Neutrophil % 82.5 % (47-70); Platelet Count 257 K/mm3 (150-450); Prothrombin Time (Protime)PT. 23.9 SECONDS (11.7-14.9); RBC Distribution Width CV 15.2 % (11.6-14.6); RBC Distribution Width SD 50.4 fl (35.1-43.9); Red Blood Count 4.59 M/mm3 (4.6-6.2); White Blood Count 8.8 K/mm3 (4.4-11.0)
[2021-04-05 17:07] LABS: Vitamin D,25 Hydroxy 23.5 ng/mL
[2021-04-05 17:16] LABS: AST(SGOT) 9 U/L (15-37); Alanine Aminotransfer ALT/SGPT 19 U/L (16-61); Albumin, Serum 3.6 g/dL (3.2-5.0); Alkaline Phosphatase 79 U/L (45-117); Anion Gap 7 (5-15); BUN 24 mg/dL (7-18); BUN/Creat Ratio 21.4 RATIO (10-20); Calcium,Total 9.1 mg/dL (8.5-10.1); Chloride 104 mmol/L (98-107); Creatinine, Serum 1.12 mg/dL (0.70-1.30); EST Glomerular Filtration Rate 68 mL/min (>60); Est Glom Filt Rate - Afr Amer 82 mL/min (>60); Globulin 3.6 g/dL (2.2-4.2); Glucose 117 mg/dL (74-106); Potassium 4.9 mmol/L (3.5-5.1); Protein, Total 7.2 g/dL (6.4-8.2); Sodium Level 140 mmol/L (136-145); Thyroid Stim Hormone (TSH) 0.95 uIU/mL (0.358-3.74)
== END ==
PROVIDERS: PCP Family Medicine Geriatric Medicine; Visit Provider Family Medicine Geriatric Medicine
DX: I10 Essential (primary) hypertension (principal); I48.0 Paroxysmal atrial fibrillation; E23.6 Other disorders of pituitary gland; E55.9 Vitamin D deficiency, unspecified
CPT/HCPCS: 36415; 80053; 82306; 84403; 84443; 85025; 85610

== ENCOUNTER 2021-07-07 13:35 | Outpatient (CLI) | payer MEDICARE, SELFPAY ==
[2021-07-07 15:19] LABS: Absolute Lymphocyte Count 0.87 X10^3/uL (0.83-4.51); Absolute Neutrophil Count 7.7 X10^3/uL (2.0-7.7); Basophil# 0.05 X10^3/uL; Basophil% 0.5 % (0-1); Eosinophil# 0.14 X10^3/uL; Eosinophils% 1.5 % (0-5); Hematocrit 42.3 % (40-54); Hemoglobin 13.8 g/dL (13.0-16.5); Lymphocyte # 0.87 X10^3/ul (0.83-4.51); Lymphocyte % 9.2 % (19-41); Mean Corp Hgb Conc 32.6 g/dL (32-36); Mean Corpuscular Hgb 29.6 pg (27.0-32.0); Mean Corpuscular Volume 90.6 fL (80-94); Mean Platelet Vol. 10.5 fl (6.2-12.0); Monocyte# 0.65 X10^3/uL; Monocyte% 6.9 % (0-10); NRBC Flagged by Analyzer 0 % (0-5); Neutrophil # 7.65 X10^3/uL (2.7-7.7); Neutrophil % 81.1 % (47-70); Platelet Count 270 K/mm3 (150-450); RBC Distribution Width CV 13.4 % (11.6-14.6); RBC Distribution Width SD 44.7 fl (35.1-43.9); Red Blood Count 4.67 M/mm3 (4.6-6.2); White Blood Count 9.4 K/mm3 (4.4-11.0)
[2021-07-07 15:31] LABS: International Normalized Ratio 1.6; Prothrombin Time (Protime)PT. 18.1 SECONDS (11.7-14.9)
[2021-07-07 15:37] LABS: Vitamin D,25 Hydroxy 24.6 ng/mL
[2021-07-07 15:49] LABS: AST(SGOT) 10 U/L (15-37); Alanine Aminotransfer ALT/SGPT 18 U/L (16-61); Albumin, Serum 3.7 g/dL (3.2-5.0); Alkaline Phosphatase 73 U/L (45-117); Anion Gap 7 (5-15); BUN 21 mg/dL (7-18); BUN/Creat Ratio 17.1 RATIO (10-20); Calcium,Total 9.5 mg/dL (8.5-10.1); Chloride 104 mmol/L (98-107); Creatinine, Serum 1.23 mg/dL (0.70-1.30); EST Glomerular Filtration Rate 61 mL/min (>60); Est Glom Filt Rate - Afr Amer 73 mL/min (>60); Globulin 3.6 g/dL (2.2-4.2); Glucose 145 mg/dL (74-106); Potassium 4.4 mmol/L (3.5-5.1); Protein, Total 7.3 g/dL (6.4-8.2); Sodium Level 137 mmol/L (136-145); Thyroid Stim Hormone (TSH) 0.67 uIU/mL (0.358-3.74)
== END 2021-07-07 23:59 | disposition short-term general hospital (02) ==
LOC: POLAB3 13:36
PROVIDERS: PCP Family Medicine Geriatric Medicine; Visit Provider Family Medicine Geriatric Medicine
DX: I48.0 Paroxysmal atrial fibrillation (principal); E11.65 Type 2 diabetes mellitus with hyperglycemia; E23.6 Other disorders of pituitary gland; E55.9 Vitamin D deficiency, unspecified; I10 Essential (primary) hypertension; Z79.01 Long term (current) use of anticoagulants
CPT/HCPCS: 36415; 80053; 82306; 84403; 84443; 85025; 85610

== ENCOUNTER 2021-08-05 13:10 | Outpatient (CLI) | payer MEDICARE, SELFPAY ==
--- NOTE | 2021-08-05 13:50 | RAD_ITS ---
EXAM: XR ABDOMEN, 2 VIEWS CLINICAL INDICATION: ABD PAIN TECHNIQUE: Frontal view of the abdomen/pelvis with upright view of the abdomen. This report was created using Pyreg report generation technology. COMPARISON: None. FINDINGS: LOWER THORAX: No acute pathology. INTRAPERITONEAL SPACE: No free air. GASTROINTESTINAL TRACT: Unremarkable. Non-obstructive. No bowel or stomach distention. ORGANS: Unremarkable as visualized. No organomegaly. No abnormal calcifications. BONES/JOINTS: Degenerative findings of the hips. Degenerative findings in the lumbar spine. SOFT TISSUES: No acute pathology. RAD/Abd Inc Decub and/or Erect IMPRESSION: No acute findings in the abdomen or pelvis. Electronically Signed: Pavel Keller MD at 20:33 EST ,
== END 2021-08-05 23:59 | disposition home or self-care (01) ==
LOC: PSN 13:12
PROVIDERS: PCP Family Medicine Geriatric Medicine; Referring Provider Family Medicine Geriatric Medicine; Visit Provider Family Medicine Geriatric Medicine
DX: R68.83 Chills (without fever) (principal); R10.9 Unspecified abdominal pain
CPT/HCPCS: 74019; 87635; 87804; 87807; C9803; U0003; U0005

== ENCOUNTER 2021-08-10 11:41 | Outpatient (RCR) | payer MEDICARE, SELFPAY ==
[2021-02-23 23:24] VITALS: BMI 29.5
[2021-08-10 12:32] LABS: Prothrombin Time (Protime)PT. 45.8 SECONDS (11.7-14.9)
[2021-08-10 13:05] LABS: PSA,Total- Diagnostic 0.44 ng/mL (0.0-4.0)
== END 2021-08-10 23:59 | disposition home or self-care (01) ==
LOC: LAB 11:41
PROVIDERS: Family Provider Family Medicine Geriatric Medicine; PCP Family Medicine Geriatric Medicine; Referring Provider Internal Medicine Cardiovascular Disease; Visit Provider Internal Medicine Cardiovascular Disease
DX: I48.0 Paroxysmal atrial fibrillation (principal); C61 Malignant neoplasm of prostate; Z79.01 Long term (current) use of anticoagulants
CPT/HCPCS: 36415; 84153; 85610

== ENCOUNTER 2021-08-28 12:17 | Outpatient (CLI) | payer MEDICARE, SELFPAY ==
[2021-08-28 12:33] LABS: International Normalized Ratio 2.6; Prothrombin Time (Protime)PT. 26.8 SECONDS (11.7-14.9)
== END 2021-08-28 23:59 | disposition home or self-care (01) ==
LOC: LAB 12:17
PROVIDERS: PCP Family Medicine Geriatric Medicine; Visit Provider Internal Medicine Cardiovascular Disease
DX: I48.0 Paroxysmal atrial fibrillation (principal); Z79.01 Long term (current) use of anticoagulants
CPT/HCPCS: 36415; 85610

== ENCOUNTER 2021-10-04 13:41 | Outpatient (RCR) | payer MEDICARE, SELFPAY ==
[2021-08-24 09:44] VITALS: BMI 29.5
[2021-10-04 14:07] LABS: International Normalized Ratio 2.2; Prothrombin Time (Protime)PT. 23.8 SECONDS (11.7-14.9)
== END 2021-10-04 18:00 | disposition home or self-care (01) ==
LOC: LAB 13:41
PROVIDERS: Family Provider Family Medicine Geriatric Medicine; PCP Family Medicine Geriatric Medicine; Referring Provider Internal Medicine Cardiovascular Disease; Visit Provider Internal Medicine Cardiovascular Disease
DX: I48.0 Paroxysmal atrial fibrillation (principal); Z79.01 Long term (current) use of anticoagulants
CPT/HCPCS: 36415; 85610

== ENCOUNTER → 2021-10-21 | Outpatient (CLI) | payer MEDICARE, SELFPAY ==
--- NOTE | 2021-10-21 15:42 | VDLE_ITS ---
Reason For Study: Edema RIGHT LEFT GSV is normal. GSV is normal. CFV is compressible, spontaneous, phasic, CFV is compressible, spontaneous, phasic, competent and demonstrates normal competent, and demonstrates normal augmentation. augmentation. FV is compressible, spontaneous, phasic, FV is compressible, spontaneous, phasic, competent and demonstrates normal competent and demonstrates normal augmentation. augmentation. POP V is compressible, spontaneous, phasic, POP V is compressible, spontaneous, phasic, competent and demonstrates normal competent and demonstrates normal augmentation. augmentation. T/P Trunk is compressible. T/P Trunk is compressible. PTV is compressible. PTV is compressible. RT PerV is compressible. LT PerV is compressible. Procedure This is a venous duplex using B-mode, color flow and spectral Doppler. Exam performed in department. A preliminary report was called and/or faxed to [facility]. VL/Venous Duplex US - Jayson Extrem Interpretation Summary Deep veins of the lower extremities are bilaterally patent and compressible seg mentally. There is no evidence of deep vein thrombosis on either side. Valvular competence appears in tact within the proximal deep venous systems bilaterally. The great saphenous veins appear bila terally patent and compressible segmentally. Ordering Physician: Demetrio Hanks Referring Physician: Demetrio Hanks Chi Performed By: Charity Molina RVT
== END | disposition home or self-care (01) ==
LOC: CVS 15:27
PROVIDERS: PCP Family Medicine Geriatric Medicine; Referring Provider Family Medicine Geriatric Medicine; Visit Provider Family Medicine Geriatric Medicine
DX: R60.0 Localized edema (principal); R06.02 Shortness of breath
CPT/HCPCS: 36415; 80053; 83880; 85025; 93970

== ENCOUNTER → 2021-10-21 | Outpatient (CLI) | payer MEDICARE, SELFPAY ==
[2021-10-21 17:17] LABS: Absolute Lymphocyte Count 0.78 X10^3/uL (0.83-4.51); Absolute Neutrophil Count 6.5 X10^3/uL (2.0-7.7); Basophil# 0.03 X10^3/uL; Basophil% 0.4 % (0-1); Eosinophil# 0.08 X10^3/uL; Hematocrit 38.6 % (40-54); Hemoglobin 12.6 g/dL (13.0-16.5); Lymphocyte # 0.78 X10^3/ul (0.83-4.51); Lymphocyte % 9.9 % (19-41); Mean Corp Hgb Conc 32.6 g/dL (32-36); Mean Corpuscular Hgb 29.4 pg (27.0-32.0); Mean Platelet Vol. 11.1 fl (6.2-12.0); Monocyte# 0.47 X10^3/uL; NRBC Flagged by Analyzer 0 % (0-5); Neutrophil # 6.45 X10^3/uL (2.7-7.7); Neutrophil % 82.1 % (47-70); Platelet Count 208 K/mm3 (150-450); RBC Distribution Width CV 13.6 % (11.6-14.6); RBC Distribution Width SD 44.3 fl (35.1-43.9); Red Blood Count 4.29 M/mm3 (4.6-6.2); White Blood Count 7.9 K/mm3 (4.4-11.0)
[2021-10-21 17:40] LABS: AST(SGOT) 11 U/L (15-37); Alanine Aminotransfer ALT/SGPT 20 U/L (16-61); Albumin, Serum 3.4 g/dL (3.2-5.0); Alkaline Phosphatase 61 U/L (45-117); Anion Gap 4 (5-15); BUN 14 mg/dL (7-18); BUN/Creat Ratio 14.1 RATIO (10-20); Calcium,Total 8.7 mg/dL (8.5-10.1); Chloride 101 mmol/L (98-107); Creatinine, Serum 0.99 mg/dL (0.70-1.30); EST Glomerular Filtration Rate 78 mL/min (>60); Est Glom Filt Rate - Afr Amer 94 mL/min (>60); Globulin 3.3 g/dL (2.2-4.2); Glucose 157 mg/dL (74-106); Potassium 4.3 mmol/L (3.5-5.1); Protein, Total 6.7 g/dL (6.4-8.2); Sodium Level 136 mmol/L (136-145)
== END | disposition home or self-care (01) ==
LOC: POLAB3 15:06
PROVIDERS: PCP Family Medicine Geriatric Medicine; Visit Provider Family Medicine Geriatric Medicine
DX: R06.02 Shortness of breath (principal); R60.0 Localized edema
CPT/HCPCS: 36415; 80053; 83880; 85025

== ENCOUNTER → 2022-01-05 | Outpatient (CLI) | payer MEDICARE, SELFPAY ==
[2022-01-05 15:55] LABS: Absolute Lymphocyte Count 0.71 X10^3/uL (0.83-4.51); Absolute Neutrophil Count 7.8 X10^3/uL (2.0-7.7); Basophil# 0.03 X10^3/uL; Basophil% 0.3 % (0-1); Eosinophil# 0.12 X10^3/uL; Eosinophils% 1.3 % (0-5); Hematocrit 39.6 % (40-54); Hemoglobin 12.7 g/dL (13.0-16.5); Lymphocyte # 0.71 X10^3/ul (0.83-4.51); Lymphocyte % 7.7 % (19-41); Mean Corp Hgb Conc 32.1 g/dL (32-36); Mean Corpuscular Hgb 29.7 pg (27.0-32.0); Mean Corpuscular Volume 92.7 fL (80-94); Mean Platelet Vol. 11.4 fl (6.2-12.0); Monocyte# 0.56 X10^3/uL; Monocyte% 6.1 % (0-10); NRBC Flagged by Analyzer 0 % (0-5); Neutrophil # 7.75 X10^3/uL (2.7-7.7); Neutrophil % 83.9 % (47-70); Platelet Count 245 K/mm3 (150-450); RBC Distribution Width CV 13.7 % (11.6-14.6); RBC Distribution Width SD 46.9 fl (35.1-43.9); Red Blood Count 4.27 M/mm3 (4.6-6.2); White Blood Count 9.2 K/mm3 (4.4-11.0)
[2022-01-05 16:03] LABS: International Normalized Ratio 2.9; Prothrombin Time (Protime)PT. 29.7 SECONDS (11.7-14.9)
[2022-01-05 16:22] LABS: Vitamin D,25 Hydroxy 28.6 ng/mL
[2022-01-05 16:31] LABS: ALB/GLOB Ratio 1.1 RATIO (0.9-2.4); AST(SGOT) 10 U/L (15-37); Alanine Aminotransfer ALT/SGPT 18 U/L (16-61); Albumin, Serum 3.6 g/dL (3.2-5.0); Alkaline Phosphatase 70 U/L (45-117); Anion Gap 5 (5-15); BUN 24 mg/dL (7-18); BUN/Creat Ratio 23.8 RATIO (10-20); Calcium,Total 8.9 mg/dL (8.5-10.1); Chloride 103 mmol/L (98-107); Creatinine, Serum 1.01 mg/dL (0.70-1.30); EST Glomerular Filtration Rate 76 mL/min (>60); Est Glom Filt Rate - Afr Amer 92 mL/min (>60); Globulin 3.3 g/dL (2.2-4.2); Glucose 175 mg/dL (74-106); Potassium 4.9 mmol/L (3.5-5.1); Protein, Total 6.9 g/dL (6.4-8.2); Sodium Level 136 mmol/L (136-145); Thyroid Stim Hormone (TSH) 0.98 uIU/mL (0.358-3.74)
== END | disposition home or self-care (01) ==
LOC: POLAB3 13:27
PROVIDERS: PCP Family Medicine Geriatric Medicine; Visit Provider Family Medicine Geriatric Medicine
DX: E11.65 Type 2 diabetes mellitus with hyperglycemia (principal); I48.0 Paroxysmal atrial fibrillation; E23.6 Other disorders of pituitary gland; E55.9 Vitamin D deficiency, unspecified; I10 Essential (primary) hypertension
CPT/HCPCS: 36415; 80053; 82306; 84403; 84443; 85025; 85610

== ENCOUNTER → 2022-02-11 | Outpatient (CLI) | payer MEDICARE, SELFPAY ==
--- NOTE | 2022-02-11 11:31 | RAD_ITS ---
STUDY: X-RAY - LEFT SHOULDER REASON FOR EXAM: Male, 76 years old. SHOULDER PAIN following a fall. TECHNIQUE: 5 view(s) of the shoulder. COMPARISON: None. FINDINGS: There is moderate degenerative arthrosis of the glenohumeral articulation. There is hypertrophic osteoarthrosis of the acromioclavicular joint with inferior osseous spur formation. Normal acromion. Normal humeral head and visualized proximal humerus. There is periarticular soft tissue calcification consistent with a calcific tendinitis. Normal visualized pulmonary apex. RAD/Shoulder min 2 Views IMPRESSION: Degenerative changes. Calcific tendinitis. Electronically Signed: Carlton Barbosa MD at 12:12 EDT ,
== END | disposition home or self-care (01) ==
LOC: RAD 11:25
PROVIDERS: PCP Family Medicine Geriatric Medicine; Visit Provider Family Medicine Geriatric Medicine
DX: M19.012 Primary osteoarthritis, left shoulder (principal); M75.32 Calcific tendinitis of left shoulder
CPT/HCPCS: 73030

== ENCOUNTER → 2022-02-25 | Outpatient (CLI) | payer MEDICARE, SELFPAY | END | disposition home or self-care (01) | LOC: PSN 12:10 | PROVIDERS: PCP Family Medicine Geriatric Medicine; Referring Provider Family Medicine Geriatric Medicine; Visit Provider Family Medicine Geriatric Medicine | DX: U07.1 COVID-19 (principal); R68.83 Chills (without fever) | CPT/HCPCS: 87635; 87804; 87807; C9803; U0003; U0005 ==

== ENCOUNTER 2022-03-09 12:27 | Outpatient (CLI) | payer MEDICARE, SELFPAY ==
--- NOTE | 2022-03-09 12:30 | CT_ITS ---
STUDY: CTA CHEST REASON FOR EXAM: Male, 76 years old. SOB, recent COVID RADIATION DOSAGE (If Supplied By Facility): CTDIvol = ( 1357 ) mGy, DLP = ( 547.85 ) mGycm TECHNIQUE: The examination was performed with the intravenous administration of IV 100mL Isovue-370. Post-processing of the angiographic images was performed, with multiplanar reformation and 3D reconstruction. Individualized dose optimization techniques were used for this CT. COMPARISON: Comparison is made with prior CT scan of the thorax dated 09/15/2015 and 09/22/2018. FINDINGS: Normal enhancement of the main pulmonary artery and right and left pulmonary arteries. Normal enhancement of the bilateral peripheral pulmonary arteries. There is no demonstrated pulmonary embolism. There is atherosclerotic calcification of the aortic arch with tortuosity. There is no demonstrated aortic dissection. There are calcifications of the coronary arteries. Sternal cerclage wires and vascular clips are present from a prior sternotomy and coronary artery bypass graft procedure (CABG). Normal mediastinum. Normal hilar regions. Normal visualized trachea and bronchi. The lungs are well expanded. Stable mild degree of scarring along the medial aspect of the right middle. Normal pleura. Normal chest wall structures. There are degenerative changes of thoracic spine. The patient is status post cholecystectomy. CT/CTA Chest W/WO Contrast IMPRESSION: No evidence of pulmonary embolism. Stable mild scarring along the medial aspect of the right middle lobe. Electronically Signed: Carlton Barbosa MD at 13:22 EDT ,
--- NOTE | 2022-03-09 12:35 | VDLE_ITS ---
Reason For Study: edema RIGHT LEFT GSV is normal. GSV is normal. CFV is compressible, spontaneous, phasic, CFV is compressible, spontaneous, phasic, competent and demonstrates normal competent, and demonstrates normal augmentation. augmentation. FV is compressible, spontaneous, phasic, FV is compressible, spontaneous, phasic, competent and demonstrates normal competent and demonstrates normal augmentation. augmentation. POP V is compressible, spontaneous, phasic, POP V is compressible, spontaneous, phasic, competent and demonstrates normal competent and demonstrates normal augmentation. augmentation. T/P Trunk is compressible. T/P Trunk is compressible. PTV is compressible. PTV is compressible. RT PerV is compressible. LT PerV is compressible. Non vascular structure noted in the RT POP FOSSA , measuring 2.37 x 0.75cm. Procedure This is a venous duplex using B-mode, color flow and spectral Doppler. Exam performed in department. The study was technically difficult. A preliminary report was called and/or faxed to Demetrio Hanks Chi @ [phone] @ 2:45 pm. VL/Venous Duplex US - Jayson Extrem Interpretation Summary Deep veins of the bilateral lower extremities are patent and compressible segme ntally. There is no evidence of bilateral lower extremities deep vein thrombosis. The bilateral gre at saphenous veins appears patent and compressible segmentally. Incidental finding, non vascular structure noted in the RT POP FOSSA , measurin g 2.37 x 0.75cm. Ordering Physician: Demetrio Hanks Chi Referring Physician: Demetrio Hanks Chi Performed By: Kady Manley, [place], RVT
[2022-03-09 13:05] LABS: CREATININE FINGERSTICK 1.1 mg/dL (0.70-1.30); EGFR FINGERSTICK > 60.0000 mL/min (>60)
== END 2022-03-09 23:59 | disposition home or self-care (01) ==
LOC: CVS 12:28
PROVIDERS: PCP Family Medicine Geriatric Medicine; Referring Provider Family Medicine Geriatric Medicine; Visit Provider Family Medicine Geriatric Medicine
DX: R60.0 Localized edema (principal); R06.02 Shortness of breath; Z86.711 Personal history of pulmonary embolism; Z86.718 Personal history of other venous thrombosis and embolism; Z86.16 Personal history of COVID-19
CPT/HCPCS: 36415; 71275; 80048; 85025; 93970; Q9967

== ENCOUNTER → 2022-03-09 | Outpatient (CLI) | payer MEDICARE, SELFPAY ==
[2022-03-09 12:28] LABS: Absolute Lymphocyte Count 0.91 X10^3/uL (0.83-4.51); Absolute Neutrophil Count 11.2 X10^3/uL (2.0-7.7); Basophil# 0.07 X10^3/uL; Basophil% 0.5 % (0-1); Eosinophil# 0.09 X10^3/uL; Eosinophils% 0.7 % (0-5); Hematocrit 47.1 % (40-54); Hemoglobin 15.5 g/dL (13.0-16.5); Lymphocyte # 0.91 X10^3/ul (0.83-4.51); Lymphocyte % 6.9 % (19-41); Mean Corp Hgb Conc 32.9 g/dL (32-36); Mean Corpuscular Volume 91.3 fL (80-94); Mean Platelet Vol. 10.6 fl (6.2-12.0); Monocyte# 0.64 X10^3/uL; Monocyte% 4.8 % (0-10); NRBC Flagged by Analyzer 0 % (0-5); Neutrophil # 11.15 X10^3/uL (2.7-7.7); Neutrophil % 84.2 % (47-70); Platelet Count 241 K/mm3 (150-450); RBC Distribution Width CV 13.1 % (11.6-14.6); RBC Distribution Width SD 44.4 fl (35.1-43.9); Red Blood Count 5.16 M/mm3 (4.6-6.2); White Blood Count 13.2 K/mm3 (4.4-11.0)
[2022-03-09 12:39] LABS: Anion Gap 13 (5-15); BUN 37 mg/dL (7-18); Calcium,Total 9.5 mg/dL (8.5-10.1); Chloride 97 mmol/L (98-107); Creatinine, Serum 1.85 mg/dL (0.70-1.30); EST Glomerular Filtration Rate 38 mL/min (>60); Est Glom Filt Rate - Afr Amer 46 mL/min (>60); Glucose 393 mg/dL (74-106); Potassium 4.3 mmol/L (3.5-5.1); Sodium Level 135 mmol/L (136-145)
== END | disposition home or self-care (01) ==
LOC: POLAB3 12:13
PROVIDERS: PCP Family Medicine Geriatric Medicine; Visit Provider Family Medicine Geriatric Medicine
DX: R06.02 Shortness of breath (principal)
CPT/HCPCS: 36415; 80048; 85025

== ENCOUNTER → 2022-03-10 | Outpatient (CLI) | payer MEDICARE, SELFPAY ==
[2022-03-10 13:13] LABS: Anion Gap 10 (5-15); BUN 38 mg/dL (7-18); BUN/Creat Ratio 24.1 RATIO (10-20); Calcium,Total 9.6 mg/dL (8.5-10.1); Chloride 97 mmol/L (98-107); Creatinine, Serum 1.58 mg/dL (0.70-1.30); EST Glomerular Filtration Rate 45 mL/min (>60); Est Glom Filt Rate - Afr Amer 55 mL/min (>60); Glucose 356 mg/dL (74-106); Potassium 4.5 mmol/L (3.5-5.1); Sodium Level 134 mmol/L (136-145)
== END | disposition home or self-care (01) ==
LOC: POLAB3 09:30
PROVIDERS: PCP Family Medicine Geriatric Medicine; Visit Provider Family Medicine Geriatric Medicine
DX: N18.30 Chronic kidney disease, stage 3 unspecified (principal)
CPT/HCPCS: 36415; 80048

== ENCOUNTER → 2022-03-11 | Outpatient (CLI) | payer MEDICARE, SELFPAY | END | disposition home or self-care (01) | LOC: PSN 13:57 | PROVIDERS: PCP Family Medicine Geriatric Medicine; Referring Provider Family Medicine Geriatric Medicine; Visit Provider Family Medicine Geriatric Medicine | DX: R68.83 Chills (without fever) (principal) | CPT/HCPCS: 87635; 87804; 87807; C9803; U0003; U0005 ==

== ENCOUNTER → 2022-04-11 | Outpatient (CLI) | payer MEDICARE, SELFPAY ==
[2022-04-11 13:10] LABS: Absolute Lymphocyte Count 0.87 X10^3/uL (0.83-4.51); Basophil# 0.05 X10^3/uL; Basophil% 0.6 % (0-1); Eosinophils% 3.7 % (0-5); Hematocrit 37.3 % (40-54); Hemoglobin 11.9 g/dL (13.0-16.5); Lymphocyte # 0.87 X10^3/ul (0.83-4.51); Lymphocyte % 10.8 % (19-41); Mean Corp Hgb Conc 31.9 g/dL (32-36); Mean Corpuscular Hgb 28.4 pg (27.0-32.0); Mean Platelet Vol. 10.9 fl (6.2-12.0); Monocyte# 0.69 X10^3/uL; Monocyte% 8.6 % (0-10); NRBC Flagged by Analyzer 0 % (0-5); Neutrophil # 6.03 X10^3/uL (2.7-7.7); Neutrophil % 75.3 % (47-70); Platelet Count 297 K/mm3 (150-450); RBC Distribution Width CV 13.6 % (11.6-14.6); RBC Distribution Width SD 44.1 fl (35.1-43.9); Red Blood Count 4.19 M/mm3 (4.6-6.2)
[2022-04-11 13:46] LABS: ALB/GLOB Ratio 0.8 RATIO (0.9-2.4); AST(SGOT) 16 U/L (15-37); Alanine Aminotransfer ALT/SGPT 10 U/L (16-61); Albumin, Serum 3.1 g/dL (3.2-5.0); Alkaline Phosphatase 58 U/L (45-117); Anion Gap 7 (5-15); BUN 19 mg/dL (7-18); BUN/Creat Ratio 15.6 RATIO (10-20); Calcium,Total 9.2 mg/dL (8.5-10.1); Chloride 105 mmol/L (98-107); Creatinine, Serum 1.22 mg/dL (0.70-1.30); EST Glomerular Filtration Rate 61 mL/min (>60); Est Glom Filt Rate - Afr Amer 74 mL/min (>60); Globulin 3.7 g/dL (2.2-4.2); Glucose 144 mg/dL (74-106); Potassium 3.9 mmol/L (3.5-5.1); Protein, Total 6.8 g/dL (6.4-8.2); Sodium Level 140 mmol/L (136-145); Thyroid Stim Hormone (TSH) 0.12 uIU/mL (0.358-3.74)
== END | disposition home or self-care (01) ==
LOC: POLAB3 11:09
PROVIDERS: PCP Family Medicine Geriatric Medicine; Visit Provider Family Medicine Geriatric Medicine
DX: N39.0 Urinary tract infection, site not specified (principal); R53.83 Other fatigue
CPT/HCPCS: 36415; 80053; 84443; 85025; 87086

== ENCOUNTER 2022-04-29 11:43 | Outpatient (RCR) | payer MEDICARE, SELFPAY ==
[2021-10-24 03:26] VITALS: BMI 29.5
[2022-04-29 13:10] LABS: Absolute Neutrophil Count 8.4 X10^3/uL (2.0-7.7); Basophil# 0.06 X10^3/uL; Basophil% 0.6 % (0-1); Eosinophil# 0.14 X10^3/uL; Eosinophils% 1.4 % (0-5); Hemoglobin 12.8 g/dL (13.0-16.5); Lymphocyte % 6.1 % (19-41); Mean Corp Hgb Conc 32.8 g/dL (32-36); Mean Corpuscular Volume 88.2 fL (80-94); Mean Platelet Vol. 10.7 fl (6.2-12.0); Monocyte# 0.52 X10^3/uL; Monocyte% 5.3 % (0-10); NRBC Flagged by Analyzer 0 % (0-5); Neutrophil # 8.42 X10^3/uL (2.7-7.7); Neutrophil % 86.1 % (47-70); POSITIVE DIFFERENTIAL YES; Platelet Count 308 K/mm3 (150-450); RBC Distribution Width CV 13.5 % (11.6-14.6); RBC Distribution Width SD 43.6 fl (35.1-43.9); Red Blood Count 4.42 M/mm3 (4.6-6.2); White Blood Count 9.8 K/mm3 (4.4-11.0)
[2022-04-29 13:21] LABS: International Normalized Ratio 2.6; Prothrombin Time (Protime)PT. 27.1 SECONDS (11.7-14.9)
[2022-04-29 13:46] LABS: Differential Indicated SCAN CRITERIA MET
[2022-04-29 13:56] LABS: ALB/GLOB Ratio 0.8 RATIO (0.9-2.4); AST(SGOT) 13 U/L (15-37); Alanine Aminotransfer ALT/SGPT 12 U/L (16-61); Albumin, Serum 3.4 g/dL (3.2-5.0); Alkaline Phosphatase 66 U/L (45-117); Anion Gap 9 (5-15); BUN 20 mg/dL (7-18); BUN/Creat Ratio 17.9 RATIO (10-20); Chloride 99 mmol/L (98-107); Creatinine, Serum 1.12 mg/dL (0.70-1.30); EST Glomerular Filtration Rate 68 mL/min (>60); Est Glom Filt Rate - Afr Amer 82 mL/min (>60); Glucose 182 mg/dL (74-106); Protein, Total 7.4 g/dL (6.4-8.2); Sodium Level 138 mmol/L (136-145); T3 Uptake 36 % (33-40); T4 Free Direct 2.21 ng/dL (0.76-1.46); Thyroid Stim Hormone (TSH) 0.05 uIU/mL (0.358-3.74)
[2022-04-29 14:02] LABS: Platelet Estimate ADEQUATE (ADEQ); Red Cell Morphology NORM C+C NORMAL (NORM C&C)
== END 2022-05-25 18:00 | disposition home or self-care (01) ==
LOC: LAB 11:43
PROVIDERS: Family Provider Family Medicine Geriatric Medicine; PCP Family Medicine Geriatric Medicine; Referring Provider Internal Medicine Cardiovascular Disease; Visit Provider Internal Medicine Cardiovascular Disease
DX: I48.0 Paroxysmal atrial fibrillation (principal); Z79.01 Long term (current) use of anticoagulants; E03.9 Hypothyroidism, unspecified; R53.83 Other fatigue
CPT/HCPCS: 36415; 80053; 84439; 84443; 84479; 85025; 85610

== ENCOUNTER → 2022-06-13 | Outpatient (CLI) | payer MEDICARE, SELFPAY ==
[2022-06-13 17:19] LABS: Absolute Lymphocyte Count 0.76 X10^3/uL (0.83-4.51); Absolute Neutrophil Count 6.4 X10^3/uL (2.0-7.7); Basophil# 0.04 X10^3/uL; Basophil% 0.5 % (0-1); Eosinophil# 0.16 X10^3/uL; Hematocrit 39.1 % (40-54); Hemoglobin 12.1 g/dL (13.0-16.5); Lymphocyte # 0.76 X10^3/ul (0.83-4.51); Lymphocyte % 9.6 % (19-41); Mean Corp Hgb Conc 30.9 g/dL (32-36); Mean Corpuscular Hgb 28.2 pg (27.0-32.0); Mean Corpuscular Volume 91.1 fL (80-94); Mean Platelet Vol. 11.2 fl (6.2-12.0); Monocyte# 0.51 X10^3/uL; Monocyte% 6.4 % (0-10); NRBC Flagged by Analyzer 0 % (0-5); Neutrophil # 6.41 X10^3/uL (2.7-7.7); Neutrophil % 81.1 % (47-70); Platelet Count 262 K/mm3 (150-450); RBC Distribution Width SD 47.2 fl (35.1-43.9); Red Blood Count 4.29 M/mm3 (4.6-6.2); White Blood Count 7.9 K/mm3 (4.4-11.0)
[2022-06-13 18:02] LABS: Vitamin D,25 Hydroxy 21.9 ng/mL
[2022-06-13 18:06] LABS: AST(SGOT) 10 U/L (15-37); Alanine Aminotransfer ALT/SGPT 14 U/L (16-61); Albumin, Serum 3.5 g/dL (3.2-5.0); Alkaline Phosphatase 63 U/L (45-117); Anion Gap 5 (5-15); BUN 28 mg/dL (7-18); BUN/Creat Ratio 24.6 RATIO (10-20); Calcium,Total 9.2 mg/dL (8.5-10.1); Chloride 106 mmol/L (98-107); Creatinine, Serum 1.14 mg/dL (0.70-1.30); EST Glomerular Filtration Rate 66 mL/min (>60); Est Glom Filt Rate - Afr Amer 80 mL/min (>60); Globulin 3.6 g/dL (2.2-4.2); Glucose 124 mg/dL (74-106); Potassium 3.9 mmol/L (3.5-5.1); Protein, Total 7.1 g/dL (6.4-8.2); Sodium Level 142 mmol/L (136-145); Thyroid Stim Hormone (TSH) 0.86 uIU/mL (0.358-3.74)
== END | disposition home or self-care (01) ==
LOC: POLAB3 15:50
PROVIDERS: PCP Family Medicine Geriatric Medicine; Visit Provider Family Medicine Geriatric Medicine
DX: E11.65 Type 2 diabetes mellitus with hyperglycemia (principal); R53.83 Other fatigue; F52.8 Other sexual dysfunction not due to a substance or known physiological condition; E55.9 Vitamin D deficiency, unspecified
CPT/HCPCS: 36415; 80053; 82306; 84403; 84443; 85025

== ENCOUNTER → 2022-07-11 | Outpatient (CLI) | payer MEDICARE, SELFPAY ==
[2022-07-11 18:12] LABS: Absolute Lymphocyte Count 0.83 X10^3/uL (0.83-4.51); Absolute Neutrophil Count 6.4 X10^3/uL (2.0-7.7); Basophil# 0.05 X10^3/uL; Basophil% 0.6 % (0-1); Eosinophils% 1.2 % (0-5); Hematocrit 41.6 % (40-54); Hemoglobin 12.8 g/dL (13.0-16.5); Lymphocyte # 0.83 X10^3/ul (0.83-4.51); Lymphocyte % 10.3 % (19-41); Mean Corp Hgb Conc 30.8 g/dL (32-36); Mean Corpuscular Hgb 27.5 pg (27.0-32.0); Mean Corpuscular Volume 89.5 fL (80-94); Mean Platelet Vol. 11.4 fl (6.2-12.0); Monocyte# 0.61 X10^3/uL; Monocyte% 7.6 % (0-10); NRBC Flagged by Analyzer 0 % (0-5); Neutrophil # 6.42 X10^3/uL (2.7-7.7); Neutrophil % 79.8 % (47-70); Platelet Count 240 K/mm3 (150-450); RBC Distribution Width SD 49.1 fl (35.1-43.9); Red Blood Count 4.65 M/mm3 (4.6-6.2); White Blood Count 8.1 K/mm3 (4.4-11.0)
[2022-07-11 18:54] LABS: Vitamin D,25 Hydroxy 24.7 ng/mL
[2022-07-11 18:57] LABS: AST(SGOT) 10 U/L (15-37); Alanine Aminotransfer ALT/SGPT 18 U/L (16-61); Albumin, Serum 3.5 g/dL (3.2-5.0); Alkaline Phosphatase 68 U/L (45-117); Anion Gap 10 (5-15); BUN 28 mg/dL (7-18); BUN/Creat Ratio 24.8 RATIO (10-20); Chloride 104 mmol/L (98-107); Creatinine, Serum 1.13 mg/dL (0.70-1.30); EST Glomerular Filtration Rate 67 mL/min (>60); Est Glom Filt Rate - Afr Amer 81 mL/min (>60); Globulin 3.6 g/dL (2.2-4.2); Glucose 124 mg/dL (74-106); Potassium 3.9 mmol/L (3.5-5.1); Protein, Total 7.1 g/dL (6.4-8.2); Sodium Level 143 mmol/L (136-145); Thyroid Stim Hormone (TSH) 0.74 uIU/mL (0.358-3.74)
== END | disposition home or self-care (01) ==
LOC: POLAB3 14:07
PROVIDERS: PCP Family Medicine Geriatric Medicine; Visit Provider Family Medicine Geriatric Medicine
DX: E11.65 Type 2 diabetes mellitus with hyperglycemia (principal); E55.9 Vitamin D deficiency, unspecified; I10 Essential (primary) hypertension; F52.8 Other sexual dysfunction not due to a substance or known physiological condition
CPT/HCPCS: 36415; 80053; 82306; 84403; 84443; 85025

== ENCOUNTER → 2022-08-24 | Outpatient (CLI) | payer MEDICARE, SELFPAY ==
[2022-08-24 14:16] LABS: PSA,Total - Annual Screen 0.31 ng/mL (0.00-4.00)
== END | disposition home or self-care (01) ==
LOC: LAB 13:23
PROVIDERS: PCP Family Medicine Geriatric Medicine; Referring Provider Registered Nurse; Visit Provider Registered Nurse
DX: Z12.5 Encounter for screening for malignant neoplasm of prostate (principal)
CPT/HCPCS: 36415; 84153; G0103

== ENCOUNTER 2022-11-08 10:07 | Outpatient (RCR) | payer MEDICARE, SELFPAY ==
[2022-05-25 23:14] VITALS: BMI 29.5
[2022-11-08 11:56] LABS: International Normalized Ratio 1.7; Prothrombin Time (Protime)PT. 20.3 SECONDS (11.7-14.9)
== END 2022-11-23 18:00 | disposition home or self-care (01) ==
LOC: LAB 10:07
PROVIDERS: Family Provider Family Medicine Geriatric Medicine; PCP Family Medicine Geriatric Medicine; Referring Provider Internal Medicine Cardiovascular Disease; Visit Provider Internal Medicine Cardiovascular Disease
DX: I48.0 Paroxysmal atrial fibrillation (principal); Z79.01 Long term (current) use of anticoagulants
CPT/HCPCS: 36415; 85610

== ENCOUNTER → 2023-01-03 | Outpatient (CLI) | payer MEDICARE, SELFPAY ==
[2023-01-03 16:02] LABS: Absolute Lymphocyte Count 0.76 X10^3/uL (0.83-4.51); Absolute Neutrophil Count 6.4 X10^3/uL (2.0-7.7); Basophil# 0.06 X10^3/uL; Basophil% 0.8 % (0-1); Eosinophils% 1.3 % (0-5); Hemoglobin 13.6 g/dL (13.0-16.5); Lymphocyte # 0.76 X10^3/ul (0.83-4.51); Lymphocyte % 9.6 % (19-41); Mean Corp Hgb Conc 31.6 g/dL (32-36); Mean Corpuscular Hgb 28.8 pg (27.0-32.0); Mean Corpuscular Volume 91.1 fL (80-94); Mean Platelet Vol. 10.8 fl (6.2-12.0); Monocyte# 0.51 X10^3/uL; Monocyte% 6.5 % (0-10); NRBC Flagged by Analyzer 0 % (0-5); Platelet Count 251 K/mm3 (150-450); RBC Distribution Width CV 13.3 % (11.6-14.6); RBC Distribution Width SD 45.4 fl (35.1-43.9); Red Blood Count 4.72 M/mm3 (4.6-6.2); White Blood Count 7.9 K/mm3 (4.4-11.0)
[2023-01-03 16:30] LABS: Vitamin D,25 Hydroxy 34.5 ng/mL
[2023-01-03 19:18] LABS: ALB/GLOB Ratio 1.1 RATIO (0.9-2.4); AST(SGOT) 11 U/L (15-37); Alanine Aminotransfer ALT/SGPT 19 U/L (16-61); Albumin, Serum 3.6 g/dL (3.2-5.0); Alkaline Phosphatase 75 U/L (45-117); Anion Gap 6 (5-15); BUN 23 mg/dL (7-18); BUN/Creat Ratio 16.9 RATIO (10-20); Calcium,Total 8.9 mg/dL (8.5-10.1); Chloride 105 mmol/L (98-107); Creatinine, Serum 1.36 mg/dL (0.70-1.30); EST Glomerular Filtration Rate 54 mL/min (>60); Est Glom Filt Rate - Afr Amer 65 mL/min (>60); Globulin 3.4 g/dL (2.2-4.2); Glucose 168 mg/dL (74-106); Potassium 3.9 mmol/L (3.5-5.1); Sodium Level 139 mmol/L (136-145); Thyroid Stim Hormone (TSH) 0.17 uIU/mL (0.358-3.74)
== END | disposition home or self-care (01) ==
LOC: POLAB3 13:22
PROVIDERS: PCP Family Medicine Geriatric Medicine; Visit Provider Family Medicine Geriatric Medicine
DX: E11.65 Type 2 diabetes mellitus with hyperglycemia (principal); E55.9 Vitamin D deficiency, unspecified; I10 Essential (primary) hypertension
CPT/HCPCS: 36415; 80053; 82306; 84443; 85025

== ENCOUNTER 2023-01-20 14:06 | Outpatient (RCR) | payer MEDICARE, SELFPAY ==
[2022-11-24 09:42] VITALS: BMI 29.5
[2023-01-20 15:06] LABS: International Normalized Ratio 2.4
== END 2023-01-23 18:00 | disposition home or self-care (01) ==
LOC: LAB 14:06
PROVIDERS: Family Provider Family Medicine Geriatric Medicine; PCP Family Medicine Geriatric Medicine; Referring Provider Internal Medicine Cardiovascular Disease; Visit Provider Internal Medicine Cardiovascular Disease
DX: I48.0 Paroxysmal atrial fibrillation (principal); Z79.01 Long term (current) use of anticoagulants
CPT/HCPCS: 36415; 85610

== ENCOUNTER 2023-06-29 13:03 | Outpatient (RCR) | payer MEDICARE, SELFPAY ==
[2023-01-24 00:44] VITALS: BMI 29.5
[2023-06-29 13:41] LABS: International Normalized Ratio 2.3; Prothrombin Time (Protime)PT. 25.8 SECONDS (11.7-14.9)
== END 2023-06-29 18:00 | disposition home or self-care (01) ==
LOC: LAB 13:03
PROVIDERS: Family Provider Family Medicine Geriatric Medicine; PCP Family Medicine Geriatric Medicine; Referring Provider Internal Medicine Cardiovascular Disease; Visit Provider Internal Medicine Cardiovascular Disease
DX: I48.0 Paroxysmal atrial fibrillation (principal); Z79.01 Long term (current) use of anticoagulants
CPT/HCPCS: 36415; 85610

== ENCOUNTER → 2023-07-19 | Outpatient (CLI) | payer MEDICARE, SELFPAY ==
--- OUTSIDE RECORDS SUMMARY | 2023-07-19 12:52 | XMS RPT_ITS | CCD ---
Author Name Unknown Address [address] [place] [address] Organization [facility] Care Team Providers Care Religious Studies Professor Name Role Phone RENETTA BERMUDEZ Unavailable Unavailabl e MOODISPAWLETICIA Unavailable Unavailable ETHAN BERMUDEZ Unavailable Unavailable MOODISPAW, LETICIA Unavailable Unavailable PRANEETH, GERI-CHI Unavailable Unavailable Problems Problem Classification Problem Date Documented Da te Episodic/Chronic Cardiac dysrhythmias (1 source) Persistent atrial fibrillation; Translations: [Persistent atrial fibrillation] Onset: 03-01-2016 Chronic Essential hypertension (1 source) Essential (primary) hypertension; Translations: [Essential (primary) hypertension] Onset: 02-09-2018 Chronic Other circulatory disease (1 source) Presence of other vascular implants and grafts; Translations: [Presence of other vascular implants and grafts] Onset: 03-01-2016 Chronic Thyroid disorders (2 sources) Hypothyroidism, unspecified; Translations: [Hypothyroidism, unspecified] Onset: 03-01-2016 Chronic Unclassified (1 source) Unknown / UNK(Unknown) Onset: 03-01-2016 Results Test Name Value Interpretation Reference Range Facil ity Encounters Encounter Date Encounter Type Care Provider Facility Start: 02-09-2018 End: 02-09-2018 Patient encounter RENETTA LETICIA BERMUDEZ [facility] Payers Date Payer Category Payer Policy ID Unknown [id number] Summary Purpose Family History No Family History Records FoundNo Family History Records Found Advance Directives No Advanced Directives Records FoundNo Advanced Directives Records Found Additional Source Comments (unrecognized sect ion and content) No Status Records FoundNo Status Records Found INFORMATION SOURCE (unrecogn ized section and content) DATE CREATED AUTHOR AUTHOR'S ORGANIZ ATION 02/12/2018 [facility] FOR RECORDS PERTAINING TO PATIENTS WHO ARE OR HAVE BEEN ENROLLED IN A CHEMICAL DEPENDENCY/SUBSTANCEABUSE PROGRAM, SOME INFORMATION MAY BE OMITTED. This clinical summary was aggregated from multiple sources. Caution should be exercised in using it in the provision of clinical care. This summary normalizes information from multiple sources, and as a consequence, information in this document may materially change the coding, format and clinical context of patient data. In addition, data may be omitted in some cases. CLINICAL DECISIONS SHOULD BE BASED ON THE PRIMARY CLINICAL RECORDS. [employer] [facility]. provides no warranty or guarantee of the accuracy or completeness of information in this document.
[2023-07-19 14:33] LABS: Absolute Lymphocyte Count 0.56 X10^3/uL (0.83-4.51); Absolute Neutrophil Count 6.2 X10^3/uL (2.0-7.7); Basophil# 0.05 X10^3/uL; Basophil% 0.7 % (0-1); Eosinophil# 0.08 X10^3/uL; Eosinophils% 1.1 % (0-5); Hematocrit 39.4 % (40-54); Hemoglobin 11.9 g/dL (13.0-16.5); Lymphocyte # 0.56 X10^3/ul (0.83-4.51); Lymphocyte % 7.6 % (19-41); Mean Corp Hgb Conc 30.2 g/dL (32-36); Mean Corpuscular Hgb 28.3 pg (27.0-32.0); Mean Corpuscular Volume 93.8 fL (80-94); Mean Platelet Vol. 10.6 fl (6.2-12.0); Monocyte# 0.43 X10^3/uL; Monocyte% 5.8 % (0-10); NRBC Flagged by Analyzer 0 % (0-5); Neutrophil # 6.23 X10^3/uL (2.7-7.7); Neutrophil % 84.1 % (47-70); POSITIVE DIFFERENTIAL YES; Platelet Count 270 K/mm3 (150-450); RBC Distribution Width CV 16.5 % (11.6-14.6); RBC Distribution Width SD 57.1 fl (35.1-43.9); White Blood Count 7.4 K/mm3 (4.4-11.0)
[2023-07-19 14:39] LABS: Differential Indicated SCAN CRITERIA MET
[2023-07-19 14:49] LABS: Vitamin D,25 Hydroxy 29.2 ng/mL
[2023-07-19 15:02] LABS: ALB/GLOB Ratio 1.1 RATIO (0.9-2.4); AST(SGOT) 10 U/L (15-37); Alanine Aminotransfer ALT/SGPT 14 U/L (16-61); Albumin, Serum 3.6 g/dL (3.2-5.0); Alkaline Phosphatase 78 U/L (45-117); Anion Gap 5 (5-15); BUN 19 mg/dL (7-18); BUN/Creat Ratio 16.7 RATIO (10-20); Chloride 103 mmol/L (98-107); Cholesterol 156 mg/dL (200); Creatinine, Serum 1.14 mg/dL (0.70-1.30); EST Glomerular Filtration Rate 66 mL/min (>60); Est Glom Filt Rate - Afr Amer 80 mL/min (>60); Globulin 3.4 g/dL (2.2-4.2); Glucose 139 mg/dL (74-106); High Density Lipoprotein 80 mg/dL; Potassium 4.4 mmol/L (3.5-5.1); Sodium Level 138 mmol/L (136-145); Triglycerides 74 mg/dL; Very Low Density Lipoprotein 15 mg/dL (5-40)
== END | disposition home or self-care (01) ==
LOC: POLAB3 12:30
PROVIDERS: PCP Family Medicine Geriatric Medicine; Visit Provider Family Medicine Geriatric Medicine
DX: I10 Essential (primary) hypertension (principal); E11.65 Type 2 diabetes mellitus with hyperglycemia; E55.9 Vitamin D deficiency, unspecified; E78.5 Hyperlipidemia, unspecified
CPT/HCPCS: 36415; 80053; 80061; 82306; 84443; 85025

== ENCOUNTER → 2023-08-28 | Outpatient (CLI) | payer MEDICARE, SELFPAY ==
--- NOTE | 2023-08-28 10:48 | ECHOCS_ITS ---
Reason For Study: AFIB/FLUTTER Procedure This was a 2D Doppler, Color Flow transthoracic echocardiogram. The study was technically difficult. Contrast injection was performed. Exam performed in department. Left Ventricle Normal LV size. Mild concentric left ventricular hypertrophy. The left ventricular ejection fraction is 60 %. Unable to assess diastolic dysfunction due to arrhythmia. Right Ventricle Mildly dilated right ventricle. Atria There is severe biatrial dilatation. Mitral Valve Moderate mitral annular calcification. Trivial mitral valve insufficiency. Tricuspid Valve Trivial tricuspid valve insufficiency. Unable to estimate RV systolic pressure due to insufficient tricuspid regurgitant envelope. Aortic Valve Trisinus/trileaflet aortic valve. Pulmonic Valve Mild (1+) pulmonic valve insufficiency. Great Vessels Mildly dilated aortic root. Pericardium/Pleural No pericardial effusion. Medication 22 gauge I.V. with prn adaptor inserted into left arm. Diluted definity 3.0ml given slow IV push to enhance endocardial definition. MMode/2D Measurements & Calculations LVIDd: 5.7 cm IVSd: 1.1 cm Ao root diam: 4.0 cm LVIDs: 3.8 cm LVPWd: 1.4 cm RVDd: 4.5 cm FS: 33.2 % LAV(MOD-bp): 101.5 ml LVAd ap4: 27.3 cm2 LVAd ap2: 30.3 cm2 LAV(MOD-bp) Indexed: 42.0 ml/m2 LVLd ap4: 7.5 cm LVLd ap2: 7.6 cm LAV(MOD-sp2): 95.3 ml EDV(MOD-sp4): 82.0 ml EDV(MOD-sp2): 99.4 ml LAV(MOD-sp4): 95.6 ml EDV(sp4-el): 84.9 ml EDV(sp2-el): 102.7 ml LVAs ap4: 14.1 cm2 LVAs ap2: 16.8 cm2 LVLs ap4: 6.2 cm LVLs ap2: 6.3 cm ESV(MOD-sp4): 27.2 ml ESV(MOD-sp2): 37.4 ml ESV(sp4-el): 27.3 ml ESV(sp2-el): 38.2 ml EF(MOD-sp4): 66.8 % EF(MOD-sp2): 62.4 % EF(sp4-el): 67.8 % SV(MOD-sp4): 54.8 ml SV(MOD-sp2): 62.0 ml SV(sp4-el): 57.5 ml LA A4 area: 28.6 cm2 LA dimension(2D): 4.9 cm TAPSE: 1.7 cm Doppler Measurements & Calculations MV V2 max: 112.2 cm/sec MV P1/2t max sabina: 112.9 cm/sec Ao V2 max: 123.3 cm/sec MV max P.0 mmHg MV P1/2t: 81.0 msec Ao max P.1 mmHg MV V2 mean: 40.5 cm/sec Ao V2 mean: 94.3 cm/sec MV mean P.95 mmHg MV dec slope: 408.4 cm/sec2 Ao mean P.8 mmHg MV V2 VTI: 30.7 cm MVA(P1/2t): 2.7 cm2 Ao V2 VTI: 24.5 cm AV (velocity ratio): 0.80 LV V1 max: 92.3 cm/sec PA V2 max: 98.2 cm/sec PI end-d sabina: 123.7 cm/sec LV V1 max P.4 mmHg PA V2 mean: 65.7 cm/sec LV V1 mean P.8 mmHg LV V1 mean: 64.0 cm/sec LV V1 VTI: 19.5 cm ECHO/Echo Complete W/ Contrast Interpretation Summary Mild concentric left ventricular hypertrophy. The left ventricular ejection fraction is 60 %. Mildly dilated right ventricle. There is severe biatrial dilatation. Moderate mitral annular calcification. Mild (1+) pulmonic valve insufficiency. Mildly dilated aortic root. The study was technically difficult. Ordering Physician: Stanley Momin Referring Physician: Demetrio Hanks Chi Performed By: Kady Manley, [place], RVT
--- OUTSIDE RECORDS SUMMARY | 2023-08-28 11:09 | XMS RPT_ITS | CCD ---
Author Name Unknown Address [address] [place] [address] Organization [facility] Care Team Providers Care Ice Cream Freezer Assistant Name Role Phone RENETTA BERMUDEZ Unavailable Unavailabl [...] End: 02-09-2018 Patient encounter RENETTA LETICIA BERMUDEZ [facility] Payers Date Payer Category Payer Policy ID Unknown [id number] Summary Purpose Family History No Family History Records FoundNo Family History Records Found Advance Directives No Advanced Directives Records FoundNo Advanced Directives Records Found Additional Source Comments (unrecognized sect ion and content) No Status Records FoundNo Status Records Found INFORMATION SOURCE (unrecogn ized section and content) DATE CREATED AUTHOR AUTHOR'S ORGANIZ ATION 02/12/2018 [facility] FOR RECORDS PERTAINING TO PATIENTS [...] BE BASED ON THE PRIMARY CLINICAL RECORDS. [employer] [facility]. provides no warranty or guarantee of the accuracy or completeness of information in this document.
== END | disposition home or self-care (01) ==
LOC: CVS 10:48
PROVIDERS: PCP Family Medicine Geriatric Medicine; Referring Provider Internal Medicine Cardiovascular Disease; Visit Provider Internal Medicine Cardiovascular Disease
DX: Z79.899 Other long term (current) drug therapy (principal)
CPT/HCPCS: 93306; Q9957; A4216; C8929

== ENCOUNTER 2024-01-17 13:56 | Outpatient (RCR) | payer MEDICARE, SELFPAY ==
[2023-07-26 22:42] VITALS: BMI 29.5
[2024-01-17 14:32] LABS: Absolute Lymphocyte Count 0.94 X10^3/uL (0.83-4.51); Absolute Neutrophil Count 7.3 X10^3/uL (2.0-7.7); Basophil# 0.08 X10^3/uL; Basophil% 0.9 % (0-1); Eosinophil# 0.17 X10^3/uL; Eosinophils% 1.9 % (0-5); Hematocrit 42.9 % (40-54); Hemoglobin 13.4 g/dL (13.0-16.5); Lymphocyte # 0.94 X10^3/ul (0.83-4.51); Lymphocyte % 10.3 % (19-41); Mean Corp Hgb Conc 31.2 g/dL (32-36); Mean Corpuscular Hgb 28.5 pg (27.0-32.0); Mean Corpuscular Volume 91.3 fL (80-94); Mean Platelet Vol. 10.7 fl (6.2-12.0); Monocyte# 0.68 X10^3/uL; Monocyte% 7.4 % (0-10); NRBC Flagged by Analyzer 0 % (0-5); Neutrophil # 7.25 X10^3/uL (2.7-7.7); Neutrophil % 79.1 % (47-70); Platelet Count 219 K/mm3 (150-450); RBC Distribution Width CV 14.6 % (11.6-14.6); RBC Distribution Width SD 48.7 fl (35.1-43.9); White Blood Count 9.2 K/mm3 (4.4-11.0)
[2024-01-17 14:47] LABS: Hemoglobin A1c 7.6 % (3.8-5.6)
[2024-01-17 15:01] LABS: Vitamin D,25 Hydroxy 33.7 ng/mL
[2024-01-17 15:03] LABS: International Normalized Ratio 1.8; Prothrombin Time (Protime)PT. 20.4 SECONDS (11.7-14.9)
[2024-01-17 15:11] LABS: AST(SGOT) 13 U/L (15-37); Alanine Aminotransfer ALT/SGPT 22 U/L (16-61); Albumin, Serum 3.8 g/dL (3.2-5.0); Alkaline Phosphatase 85 U/L (45-117); Anion Gap 7 (5-15); BUN 30 mg/dL (7-18); BUN/Creat Ratio 23.1 RATIO (10-20); Calcium,Total 9.5 mg/dL (8.5-10.1); Chloride 103 mmol/L (98-107); Cholesterol 155 mg/dL (200); EST Glomerular Filtration Rate 57 mL/min (>60); Est Glom Filt Rate - Afr Amer 68 mL/min (>60); Globulin 3.7 g/dL (2.2-4.2); Glucose 149 mg/dL (74-106); High Density Lipoprotein 82 mg/dL; Potassium 4.2 mmol/L (3.5-5.1); Protein, Total 7.5 g/dL (6.4-8.2); Sodium Level 138 mmol/L (136-145); Thyroid Stim Hormone (TSH) 0.57 uIU/mL (0.358-3.74); Triglycerides 112 mg/dL; Very Low Density Lipoprotein 22 mg/dL (5-40)
== END 2024-01-24 18:00 | disposition home or self-care (01) ==
LOC: LAB 13:56
PROVIDERS: Family Provider Family Medicine Geriatric Medicine; PCP Family Medicine Geriatric Medicine; Referring Provider Internal Medicine Cardiovascular Disease; Visit Provider Internal Medicine Cardiovascular Disease
DX: I48.0 Paroxysmal atrial fibrillation (principal); Z79.01 Long term (current) use of anticoagulants; E78.5 Hyperlipidemia, unspecified; E11.65 Type 2 diabetes mellitus with hyperglycemia; I10 Essential (primary) hypertension; E03.9 Hypothyroidism, unspecified; R53.83 Other fatigue; E55.9 Vitamin D deficiency, unspecified
CPT/HCPCS: 36415; 80053; 80061; 82306; 83036; 84443; 85025; 85610

== ENCOUNTER → 2024-07-18 | Outpatient (CLI) | payer MEDICARE, SELFPAY ==
[2024-07-18 16:29] LABS: Absolute Lymphocyte Count 0.57 X10^3/uL (0.83-4.51); Absolute Neutrophil Count 6.9 X10^3/uL (2.0-7.7); Basophil# 0.06 X10^3/uL; Basophil% 0.7 % (0-1); Eosinophils% 1.2 % (0-5); Hematocrit 41.5 % (40-54); Hemoglobin 13.1 g/dL (13.0-16.5); Lymphocyte # 0.57 X10^3/ul (0.83-4.51); Lymphocyte % 6.9 % (19-41); Mean Corp Hgb Conc 31.6 g/dL (32-36); Mean Corpuscular Volume 91.8 fL (80-94); Mean Platelet Vol. 11.1 fl (6.2-12.0); Monocyte# 0.55 X10^3/uL; Monocyte% 6.7 % (0-10); NRBC Flagged by Analyzer 0 % (0-5); Neutrophil # 6.87 X10^3/uL (2.7-7.7); Neutrophil % 83.8 % (47-70); POSITIVE DIFFERENTIAL YES; Platelet Count 210 K/mm3 (150-450); RBC Distribution Width SD 47.3 fl (35.1-43.9); Red Blood Count 4.52 M/mm3 (4.6-6.2); White Blood Count 8.2 K/mm3 (4.4-11.0)
[2024-07-18 17:11] LABS: ALB/GLOB Ratio 0.9 RATIO (0.9-2.4); AST(SGOT) 13 U/L (15-37); Alanine Aminotransfer ALT/SGPT 19 U/L (16-61); Albumin, Serum 3.5 g/dL (3.2-5.0); Alkaline Phosphatase 89 U/L (45-117); Anion Gap 9 (5-15); BUN 30 mg/dL (7-18); BUN/Creat Ratio 23.1 RATIO (10-20); Calcium,Total 8.9 mg/dL (8.5-10.1); Chloride 102 mmol/L (98-107); Cholesterol 155 mg/dL (200); EST Glomerular Filtration Rate 57 mL/min (>60); Est Glom Filt Rate - Afr Amer 68 mL/min (>60); Globulin 3.9 g/dL (2.2-4.2); Glucose 262 mg/dL (74-106); High Density Lipoprotein 85 mg/dL; PSA,Total - Annual Screen 0.28 ng/mL (0.00-4.00); Potassium 3.9 mmol/L (3.5-5.1); Protein, Total 7.4 g/dL (6.4-8.2); Sodium Level 138 mmol/L (136-145); Thyroid Stim Hormone (TSH) 0.084 uIU/mL (0.358-3.740); Triglycerides 142 mg/dL; Very Low Density Lipoprotein 28 mg/dL (5-40)
[2024-07-18 17:28] LABS: Microalbumin,Random Urine 7.7 mg/L (NO RANGE EST.); Microalbumin:Creatinine Ratio 14.2 mg/g CRE (<30 mg/g CRE)
[2024-07-18 18:55] LABS: Hemoglobin A1c 9.5 % (3.8-5.6)
== END | disposition home or self-care (01) ==
LOC: POLAB3 15:48
PROVIDERS: PCP Family Medicine Geriatric Medicine; Visit Provider Family Medicine Geriatric Medicine
DX: E78.5 Hyperlipidemia, unspecified (principal); E11.65 Type 2 diabetes mellitus with hyperglycemia; I10 Essential (primary) hypertension; E55.9 Vitamin D deficiency, unspecified; Z12.5 Encounter for screening for malignant neoplasm of prostate
CPT/HCPCS: 36415; 80053; 80061; 82043; 82306; 82570; 83036; 84153; 84443; 85025; G0103

== ENCOUNTER → 2024-10-23 | Outpatient (CLI) | payer MEDICARE, SELFPAY ==
[2024-10-23 13:00] LABS: Absolute Neutrophil Count 5.5 X10^3/uL (2.0-7.7); Basophil# 0.05 X10^3/uL; Basophil% 0.8 % (0-1); Eosinophil# 0.09 X10^3/uL; Eosinophils% 1.4 % (0-5); Hematocrit 40.7 % (40-54); Hemoglobin 12.8 g/dL (13.0-16.5); Lymphocyte % 7.5 % (19-41); Mean Corp Hgb Conc 31.4 g/dL (32-36); Mean Corpuscular Hgb 29.3 pg (27.0-32.0); Mean Corpuscular Volume 93.1 fL (80-94); Mean Platelet Vol. 10.5 fl (6.2-12.0); Monocyte# 0.46 X10^3/uL; Monocyte% 6.9 % (0-10); NRBC Flagged by Analyzer 0 % (0-5); Neutrophil % 82.8 % (47-70); POSITIVE DIFFERENTIAL YES; Platelet Count 210 K/mm3 (150-450); RBC Distribution Width CV 14.4 % (11.6-14.6); RBC Distribution Width SD 49.6 fl (35.1-43.9); Red Blood Count 4.37 M/mm3 (4.6-6.2); White Blood Count 6.6 K/mm3 (4.4-11.0)
[2024-10-23 13:19] LABS: Hemoglobin A1c 9.3 % (<=5.6)
[2024-10-23 14:04] LABS: ALB/GLOB Ratio 1.5 RATIO (0.9-2.4); AST(SGOT) 16 U/L (<=37); Alanine Aminotransfer ALT/SGPT 15 U/L (<=46); Albumin, Serum 4.1 g/dL (3.4-4.8); Alkaline Phosphatase 70 U/L (40-129); Anion Gap 10 (5-15); BUN 29 mg/dL (4-19); BUN/Creat Ratio 21.3 RATIO (10-20); Calcium,Total 9.3 mg/dL (7.6-11.0); Carbon Dioxide 25.7 mmol/L (21.0-32.0); Chloride 105 mmol/L (98-108); Cholesterol 162 mg/dL (<=200); Creatinine, Serum 1.34 mg/dL (0.70-1.20); EST Glomerular Filtration Rate 54 (>60); Globulin 2.7 g/dL (2.2-4.2); Glucose 166 mg/dL (70-99); High Density Lipoprotein 77 mg/dL; Low Density Lipoprotein Calc. 67 mg/dL; Potassium 4.6 mmol/L (3.3-5.1); Protein, Total 6.8 g/dL (5.9-8.4); Sodium Level 141 mmol/L (133-145); Total Bilirubin 1.28 mg/dL (0.00-1.30); Triglycerides 90 mg/dL; Very Low Density Lipoprotein 18 mg/dL (5-40); Vitamin D,25 Hydroxy 18.1 ng/mL (30-100)
== END | disposition home or self-care (01) ==
LOC: LAB 11:55
PROVIDERS: PCP Family Medicine Geriatric Medicine; Referring Provider Family Medicine Geriatric Medicine; Visit Provider Family Medicine Geriatric Medicine
DX: E78.5 Hyperlipidemia, unspecified (principal); E11.65 Type 2 diabetes mellitus with hyperglycemia; E55.9 Vitamin D deficiency, unspecified; I10 Essential (primary) hypertension
CPT/HCPCS: 36415; 80053; 80061; 82306; 83036; 84443; 85025

== ENCOUNTER → 2025-01-21 | Outpatient (CLI) | payer MEDICARE, SELFPAY ==
[2025-01-21 13:37] LABS: Hematocrit 41.3 % (40-54); Hemoglobin 13.0 g/dL (13.0-16.5); Immature Granulocytes Count 0.050 X10^3/uL (0.0-0.0); Mean Corp Hgb Conc 31.5 g/dL (32-36); Mean Corpuscular Volume 93.0 fL (80-94); Mean Platelet Vol. 10.7 fl (6.2-12.0); NRBC Flagged by Analyzer 0.2 % (0-5); POSITIVE DIFFERENTIAL YES; Platelet Count 243 K/mm3 (150-450); RBC Distribution Width CV 14.5 % (11.6-14.6); RBC Distribution Width SD 50.0 fl (35.1-43.9); Red Blood Count 4.44 M/mm3 (4.6-6.2); White Blood Count 8.2 K/mm3 (4.4-11.0)
[2025-01-21 15:47] LABS: AST(SGOT) 14 U/L (<=37); Alanine Aminotransfer ALT/SGPT 10 U/L (<=46); Albumin, Serum 4.1 g/dL (3.4-4.8); Alkaline Phosphatase 72 U/L (40-129); Anion Gap 15 (5-15); BUN 13 mg/dL (4-19); BUN/Creat Ratio 13.0 RATIO (10-20); Calcium,Total 9.2 mg/dL (7.6-11.0); Carbon Dioxide 22.5 mmol/L (21.0-32.0); Chloride 105 mmol/L (98-108); Cholesterol 148 mg/dL (<=200); Globulin 2.7 g/dL (2.2-4.2); Glucose 158 mg/dL (70-99); Low Density Lipoprotein Calc. 48 mg/dL; Potassium 4.1 mmol/L (3.3-5.1); Triglycerides 95 mg/dL; Very Low Density Lipoprotein 19 mg/dL (5-40); Vitamin D,25 Hydroxy 19.0 ng/mL (30-100); cholesterol:hdl ratio screen 1.83
[2025-01-21 21:03] LABS: Xtra Tube Kwok EXTRA TUBE
== END | disposition home or self-care (01) ==
LOC: POLAB3 13:00
PROVIDERS: PCP Family Medicine Geriatric Medicine; Visit Provider Family Medicine Geriatric Medicine
DX: E78.5 Hyperlipidemia, unspecified (principal); E11.65 Type 2 diabetes mellitus with hyperglycemia; E03.9 Hypothyroidism, unspecified; E55.9 Vitamin D deficiency, unspecified
CPT/HCPCS: 36415; 80053; 80061; 82306; 83036; 84443; 85025

== ENCOUNTER → 2025-02-11 | Outpatient (CLI) | payer MEDICARE, SELFPAY ==
[2025-02-11 16:52] LABS: Hematocrit 36.4 % (40-54); Hemoglobin 11.4 g/dL (13.0-16.5); Immature Granulocytes Count 0.040 X10^3/uL (0.0-0.0); Mean Corp Hgb Conc 31.3 g/dL (32-36); Mean Corpuscular Volume 91.5 fL (80-94); Mean Platelet Vol. 10.6 fl (6.2-12.0); NRBC Flagged by Analyzer 0 % (0-5); POSITIVE DIFFERENTIAL YES; Platelet Count 187 K/mm3 (150-450); RBC Distribution Width CV 14.5 % (11.6-14.6); RBC Distribution Width SD 49.0 fl (35.1-43.9); Red Blood Count 3.98 M/mm3 (4.6-6.2); White Blood Count 5.9 K/mm3 (4.4-11.0)
[2025-02-11 17:06] LABS: Prothrombin Time (Protime)PT. 16.3 SECONDS (11.7-14.9)
[2025-02-11 17:24] LABS: AST(SGOT) 14 U/L (<=37); Alanine Aminotransfer ALT/SGPT 8 U/L (<=46); Albumin, Serum 3.9 g/dL (3.4-4.8); Alkaline Phosphatase 64 U/L (40-129); Anion Gap 11 (5-15); BUN 14 mg/dL (4-19); BUN/Creat Ratio 14.5 RATIO (10-20); Calcium,Total 9.4 mg/dL (7.6-11.0); Carbon Dioxide 24.3 mmol/L (21.0-32.0); Chloride 103 mmol/L (98-108); Globulin 2.5 g/dL (2.2-4.2); Glucose 134 mg/dL (70-99); Potassium 4.6 mmol/L (3.3-5.1)
[2025-02-12 00:22] LABS: Xtra Tube Kwok EXTRA TUBE
== END | disposition home or self-care (01) ==
PROVIDERS: PCP Family Medicine Geriatric Medicine; Referring Provider Internal Medicine Cardiovascular Disease; Visit Provider Internal Medicine Cardiovascular Disease
DX: I48.21 Permanent atrial fibrillation (principal); Z79.01 Long term (current) use of anticoagulants
CPT/HCPCS: 36415; 80053; 84443; 85025; 85610

== ENCOUNTER → 2025-04-23 | Outpatient (CLI) | payer MEDICARE, SELFPAY ==
[2025-04-23 13:12] LABS: Hematocrit 39.7 % (40-54); Hemoglobin 12.4 g/dL (13.0-16.5); Immature Granulocytes Count 0.060 X10^3/uL (0.0-0.0); Mean Corp Hgb Conc 31.2 g/dL (32-36); Mean Corpuscular Volume 91.3 fL (80-94); Mean Platelet Vol. 10.5 fl (6.2-12.0); NRBC Flagged by Analyzer 0 % (0-5); POSITIVE DIFFERENTIAL YES; Platelet Count 212 K/mm3 (150-450); RBC Distribution Width CV 14.8 % (11.6-14.6); RBC Distribution Width SD 50.3 fl (35.1-43.9); Red Blood Count 4.35 M/mm3 (4.6-6.2); White Blood Count 8.7 K/mm3 (4.4-11.0)
[2025-04-23 14:19] LABS: AST(SGOT) 13 U/L (<=37); Alanine Aminotransfer ALT/SGPT 10 U/L (<=46); Albumin, Serum 4.2 g/dL (3.4-4.8); Alkaline Phosphatase 69 U/L (40-129); Anion Gap 11 (5-15); BUN 24 mg/dL (4-19); BUN/Creat Ratio 22.5 RATIO (10-20); Calcium,Total 9.2 mg/dL (7.6-11.0); Carbon Dioxide 28.0 mmol/L (21.0-32.0); Chloride 101 mmol/L (98-108); Cholesterol 144 mg/dL (<=200); Globulin 2.8 g/dL (2.2-4.2); Glucose 169 mg/dL (70-99); Low Density Lipoprotein Calc. 50 mg/dL; Potassium 4.2 mmol/L (3.3-5.1); Triglycerides 91 mg/dL; Very Low Density Lipoprotein 18 mg/dL (5-40); Vitamin D,25 Hydroxy 17.3 ng/mL (30-100); cholesterol:hdl ratio screen 1.87
[2025-04-23 20:59] LABS: Xtra Tube Kwok EXTRA TUBE
== END | disposition home or self-care (01) ==
LOC: POLAB3 12:59
PROVIDERS: PCP Family Medicine Geriatric Medicine; Visit Provider Family Medicine Geriatric Medicine
DX: I10 Essential (primary) hypertension (principal); E11.65 Type 2 diabetes mellitus with hyperglycemia; E03.9 Hypothyroidism, unspecified; E55.9 Vitamin D deficiency, unspecified; E78.5 Hyperlipidemia, unspecified
CPT/HCPCS: 36415; 80053; 80061; 82306; 83036; 84443; 85025